=== PATIENT | male | born 1955 | race Caucasian/White ===

== ENCOUNTER 2019-07-08 08:53 | Inpatient (IN) | payer BC, OTHER ==
[2019-07-08] VITALS (19 sets, daily range): BP systolic 102–196; BP diastolic 54–117
[~2019-07-08] VITALS: Ht 182.9 cm; Wt 125.2 kg
[2019-07-08 09:24] LABS: ABG BASE EXCESS 0.6 MMOL/L (-2.5-2.5); ABG OXYGEN SATURATION 98 % (94-100); ABG PCO2 44 MMHG (35-45); ABG PH 7.38 (7.37-7.43); ABG PO2 110 MMHG (79-93); ABG TCO2 26.7 MMOL/L (21.0-31.0)
[2019-07-08 09:26] LABS: ALLENS TEST YES-POS; INSPIRED O2 60% BIPAP; PATIENT TEMP 36.6; VENTILATOR NO
[2019-07-08] MEDS ORDERED: CATHETER FLUSH 10 ML SYR IV PRN (09:30)
--- NOTE | 2019-07-08 10:01 | Diagnostic Imaging Report ---
INDICATION: Respiratory distress. COMPARISON: 06/28/2019. TECHNIQUE: Single radiograph of the chest dated 07/08/2019. FINDINGS: Previously noted endotracheal tube has been removed. Previously noted right-sided PICC line has been removed. Enteric catheter has been removed. The cardiac silhouette is enlarged, though similar to the prior exam. No significant pulmonary vascular congestion. Persistent elevation of the right hemidiaphragm. Significantly low lung volumes with increasing bibasilar opacities. Upper lungs appear clear. No pneumothorax. Osseous structures are stable. IMPRESSION: Low lung volumes with developing bibasilar atelectasis and/or pneumonitis. Interval removal of endotracheal tube, enteric catheter, and right-sided PICC line. Stable significant elevation of the right hemidiaphragm. Dictated by: Dictated on workstation # [id number]
[2019-07-08 10:04] LABS: ABG BASE EXCESS 1.8 MMOL/L (-2.5-2.5); ABG OXYGEN SATURATION 95 % (94-100); ABG PCO2 49 MMHG (35-45); ABG PH 7.36 (7.37-7.43); ABG PO2 83 MMHG (79-93); ABG TCO2 28.1 MMOL/L (21.0-31.0)
[2019-07-08 10:05] LABS: ALLENS TEST YES-POS; INSPIRED O2 35% BIPAP; PATIENT TEMP 99; VENTILATOR NO
[2019-07-08 10:07] LABS: BASOPHILS % (AUTO) 0 % (0-10); EOSINOPHILS % (AUTO) 0 % (0-10); HEMATOCRIT 43 % (40-54); HEMOGLOBIN 13.4 G/DL (13.3-17.7); LYMPHOCYTES # (AUTO) 0.7 X 10^3 (1.0-4.0); LYMPHOCYTES % (AUTO) 12 % (12-44); MEAN CORPUSCULAR HEMOGLOBIN 30 PG (25-34); MEAN CORPUSCULAR HGB CONC 31 G/DL (32-36); MEAN CORPUSCULAR VOLUME 97 FL (80-99); MEAN PLATELET VOLUME 10.7 FL (7.4-10.4); MONOCYTES # (AUTO) 0.3 X 10^3 (0.0-1.0); MONOCYTES % (AUTO) 6 % (0-12); NEUTROPHILS % (AUTO) 82 % (42-75); PLATELET COUNT 267 10^3/uL (130-400); RED CELL DISTRIBUTION WIDTH 14.1 % (10.0-14.5); WHITE BLOOD COUNT 6.1 10^3/uL (4.3-11.0)
[2019-07-08 10:09] LABS: ALANINE AMINOTRANSFERASE 34 U/L (0-55); ALBUMIN 4.1 GM/DL (3.2-4.5); ALKALINE PHOSPHATASE 72 U/L (40-136); BILIRUBIN,TOTAL 0.3 MG/DL (0.1-1.0); BUN/CREATININE RATIO 25; CALCIUM 9.7 MG/DL (8.5-10.1); CARBON DIOXIDE 23 MMOL/L (21-32); CHLORIDE 108 MMOL/L (98-107); CREATININE SERUM 0.95 MG/DL (0.60-1.30); GFR ESTIMATED > 60; GLUCOSE 111 MG/DL (70-105); MAGNESIUM 2.2 MG/DL (1.6-2.4); PHOSPHORUS 4.8 MG/DL (2.3-4.7); SODIUM 142 MMOL/L (135-145); TOTAL PROTEIN 8.1 GM/DL (6.4-8.2)
[2019-07-08] MEDS ORDERED: TRIA1TAB3 PO (10:21)
[2019-07-08] MEDS ORDERED: AMLO10TA7 PO (10:21)
[2019-07-08] MEDS ORDERED: DOXY100C42 PO (10:21)
[2019-07-08] MEDS ORDERED: LOVA40TA2 PO (10:21)
[2019-07-08] MEDS ORDERED: LISI40TA PO (10:21)
[2019-07-08] MEDS ORDERED: METO-333 PO (10:21)
[2019-07-08] MEDS ORDERED: POTA20TA15 PO (10:21)
[2019-07-08] MEDS: NS IV 1000 ML 1,000 ML IV SCH ×2 (10:29→18:12)
[2019-07-08 11:19] LABS: ABG OXYGEN SATURATION 97 % (94-100); ABG PCO2 35 MMHG (35-45); ABG PH 7.54 (7.37-7.43); ABG PO2 148 MMHG (79-93); ABG TCO2 31.2 MMOL/L (21.0-31.0)
[2019-07-08 11:22] LABS: ALLENS TEST YES-POS
[2019-07-08 11:23] LABS: INSPIRED O2 35%; PATIENT TEMP 37; VENTILATOR NO
[2019-07-08] MEDS: LEVETIRACETAM INJECTION 500 MG in NS (IVPB) 100 ML IV SCH ×2 (11:25→20:08)
--- NOTE | 2019-07-08 11:57 | History & Physical-Hospitalist ---
FIDEL GONZALEZ [facility] 07/08/19 1157: History of Present Illness HPI/Chief Complaint 64 y.o Obese, WM w/ hx of severe sleep apnea non-compliance w tx, HTN, chronic edema who was admitted to [facility] on 06/25 for AMS, noncommunicative and behavioral changes. His GCS was 13 while he was at the ED. Per reports from [place], pt was neurologically intact at the time but was uncooperative, confused and aphasic. CTH on 06/26/19 was negative. MRI on 06/26/19 of head was negative for acute ischemia, mass, or hemorrhage. Had LP done on 06/26 as well but results were not definitive @ discharge; was given Rocephin. A tick was found on the pt at the time and a Tick panel was sent which came back negative, but pending Lyme dz; pt was started on doxy. UA showed evidence of cystitis (positive for 10-20 WBC). Also had BUN & cr of 33 & 2.54 respectively; kidney function earlier this year had been normal. Pt was admitted for JANES, AMS, and possible Cystitis. Pt was then transferred to The senior behavioral unit in [facility] and admitted to Dr. Bradley Sweet. While in [facility], it was noted that pt snored alot and had pH of 7.27, CO2 57 and O2 stat of 46%; given the abnormal ABGs and pt's hx of severe sleep apnea w non- compliance to tx, Dr. Sweet suspected acute on chronic CO2 necrosis to be the cause of pt's presentation. Dr. Sweet consulted Dr. Briscoe @ [facility] and pt was transferrred to ICU @ via [facility] and admitted to Dr. Cifuentes. Further hx is limited pt's clinical condition. POA: Antonella Cha. ([phone]) Source: RN/MD, RN notes reviewed, EMS notes reviewed, old records Exam Limitations: clinical condition Date Seen 07/08/19 Time Seen by a Provider: 10:00 Attending Physician Leesa Cifuentes DO PCP Dali Aguirre (last seen pt on 03/02/19, pt was doing well at the time) Referring Physician Date of Admission Jul 08, 2019 at 08:53 Home Medications & Allergies Home Medications Reviewed patient Home Medication Reconciliation performed by pharmacy medication reconciliations cadd technician and/or nursing. Patients Allergies have been reviewed Acetaminophen 500 Mg Tablet, 1,000 MG PO Q4H PRN for PAIN-MILD, (Reported) Amlodipine Besylate 10 Mg Tablet, 10 MG PO DAILY, (Reported) Ascorbate Calcium 500 Mg Tablet, 500 MG PO DAILY, (Reported) Aspirin 325 Mg Tablet, 162.5 MG PO DAILY, (Reported) TAKES 1/2 (325MG) TABLET Cyanocobalamin (Vitamin B-12) 500 Mcg Tablet, 500 MCG PO DAILY, (Reported) Doxycycline Monohydrate 100 Mg Capsule, 100 MG PO BID, (Reported) 7 DAY SUPPLY FILLED 07-03-19 Lisinopril 40 Mg Tablet, 80 MG PO DAILY, (Reported) TAKES 2 (40MG) TABLETS Lovastatin 40 Mg Tablet, 80 MG PO HS, (Reported) TAKES 2 (40MG) TABLETS Magnesium Oxide 400 Mg Tablet, 400 MG PO DAILY, (Reported) Metoprolol Tartrate 25 Mg Tablet, 25 MG PO BID, (Reported) Multivit-Min/FA/Lycopen/Lutein 1 Each Tablet, 1 TAB PO DAILY, (Reported) Niacin (Inositol Niacinate) 500 Mg Capsule, 1,000 MG PO HS, (Reported) TAKES 2 (500MG) CAPSULES Nitroglycerin 0.4 Mg Tab.subl, 0.4 MG SL UD PRN for CHEST PAIN, (Reported) Potassium Chloride 20 Meq Tab.er.prt, 20 MEQ PO DAILY, (Reported) Triamterene/Hydrochlorothiazid 1 Each Tablet, 1 TAB PO DAILY, (Reported) Zinc Amino Acid Chelate 50 Mg Tablet, 50 MG PO DAILY, (Reported) . Allergies Allergies Coded Allergies azithromycin (Verified Allergy, Unknown, 07/08/19) Past Ggzoonv-Mevgld-Eagkwr Hx Past Med/Social Hx: Reviewed and Corrections made Patient Social History Marrital Status: Employed/Student: employed (works for [employer] ) Alcohol Use: Occasionally Uses (per medical records, unable to confirm with pt at this time) Smoking Status: Never a Smoker (per medical records, unable to confirm with pt at this time) Immunizations Up To Date Tetanus Booster (TDap): Unknown Past Medical History Surgeries: Bowel Surgery (colonoscopy ), Cardiac (Cardiac cath in 1999: normal), Orthopedic (Right knee arthroscopic procedure; R knee repair) Left temporal basal cell carcinoma excision Respiratory: Sleep Apnea (severe, non-compliant with Tx) Currently Using BIPAP: Yes Cardiac: Chronic Edema/Swelling, Hypertension Hyperlipidemia, WPW Gastrointestinal: Diverticulosis (sigmoid) Osteoarthritis prediabetes Cancer: Skin Psychosocial: Anxiety Family History Reviewed Nursing Family Hx Review of Systems ROS-Unable to Obtain: 2/2 clinical condition at this time Physical Exam Physical Exam Vital Signs Vital Signs - First Documented 07/08/19 07/08/19 09:15 09:27 Pulse 76 Resp 16 Pulse Ox 96 O2 Flow Rate 35.00 Capillary Refill : Height, Weight, BMI Height: '" Weight: lbs. oz. kg; BMI Method: General Appearance: No Apparent Distress, Obese, Other (responsive to touch, somnolent at this time) Neck: Other (increased neck circumference) Respiratory: Chest Non Tender, Lungs Clear, No Accessory Muscle Use, No Respiratory Distress Cardiovascular: Regular Rate, Rhythm, No Gallop, No JVD, No Murmur, Normal Peripheral Pulses Gastrointestinal: No Organomegaly, No Pulsatile Mass, Non Tender, Other (abd obesity ) Back: Normal Inspection Extremity: Normal Capillary Refill, Normal Inspection, Pedal Edema (trace) Neurologic/Psychiatric: No Alert, No Oriented x3; Other (incomplete exam 2/2 clinical condition at this time) Skin: Normal Color, Warm/Dry Results Results/Procedures Labs Laboratory Tests 07/08/19 09:31 Patient resulted labs reviewed. 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 Briscoe will follow 3 Continue BIPAP 4 Initiate MAT protocol 5 Duoneb tx 6 DVT prophylaxis: sequential compressions 7 Monitor ABGs 8 Monitor Lactic Acid LEESA CIFUENTES DO 07/08/192128: History of Present Illness HPI/Chief Complaint CC: Respiratory insufficiency HPI: This is a 64yoWM pt of Gabby Henning who presented to [facility] after I transferred him from senior behavioral unit at [facility] after admitted late last night from [place] ER due to altered mental status. He has a long standing history of untreated DAYANA refusing CPAP in the past who had hip replacement surgery in [place] 6 weeks ago, discharged and just two weeks ago had significant altered mental status, sent to [place] after observation at [place] and thre he had an MRI and spinal tap and neurology consult looking for tickborne illness as the source so he was placed on Doxycyline but had been intubed and extubated and discharged home who continued to have issue when he got home so he was sent to the senior unit and this morning I noted apnea episodes before he was awake so I obtained and ABG showing significant respiratory insufficiency, pH of 7.27/58/46 requiring transfer to higher level of care for pulmonology. My theory is untreated DAYANA for many years, worsened with gradual CO2 Narcosis since anesthesia with surgery and pain medication, off work and sleeping more caused all of the altered mental status. At this current time pt is tolerating biPAP, ABG shows much improved numbers and pt remains stable. Past Bhwotmx-Fjmzkq-Nyjdfg Hx Past Medical History Respiratory: Sleep Apnea (severe, non-compliant with Tx) Review of Systems Constitutional: see HPI Physical Exam Physical Exam General Appearance: No Apparent Distress, Obese, Other (responsive to touch, somnolent at this time) Assessment/Plan Admission Diagnosis Assessment: Acute on chronic respiratory failure Acute on chronic CO2 narcosis Obesity DM HTN CRI OA Plan: Monitor CO2 BiPAP Appreciate Dr Briscoe Admission Status: Inpatient Order (span 2 midnights) Reason for Inpatient Admission: Resp failure Diagnosis/Problems Diagnosis/Problems (1) CO2 narcosis Status: Acute Supervisory-Addendum Brief Verification & Attestation Participated in pt care: history, MDM, physical Personally performed: exam, history, MDM, supervision of care Care discussed with: Medical Student Procedures: n/a Results interpretation: Verified all documentation Verification and Attestation of Medical Student E/M Service A medical student performed and documented this service in my presence. I reviewed and verified all information documented by the medical student and made modifications to such information, when appropriate. I personally performed the physical exam and medical decision making. Leesa Cifuentes, Jul 08, 2019,21:[address] [facility] Jul 08, 2019 11:57 LEESA CIFUENTES DO Jul 08, 2019 21:29
[2019-07-08 13:09] LABS: BILIRUBIN,URINE NEGATIVE (NEGATIVE); CLARITY,URINE VERY CLOUDY; COLOR,URINE YELLOW; GLUCOSE, URINE (UA) NEGATIVE (NEGATIVE); KETONES,URINE 3+ (NEGATIVE); LEUKOCYTE ESTERASE ,URINE NEGATIVE (NEGATIVE); NITRITE,URINE NEGATIVE (NEGATIVE); PH,URINE 6 (5-9); PROTEIN,URINE 2+ (NEGATIVE); UROBILINOGEN,URINE NORMAL (NORMAL)
[2019-07-08 13:20] LABS: RBC,URINE 0-2 /HPF
[2019-07-08 13:21] LABS: AMORPHOUS SEDIMENT,UR LARGE AMOR URATES /LPF; BACTERIA,URINE FEW /HPF
[2019-07-08] MEDS ORDERED: ASCO-262 PO (13:23)
[2019-07-08] MEDS ORDERED: MULT-1061 PO (13:23)
[2019-07-08] MEDS ORDERED: ACET-2267 PO (13:23)
[2019-07-08] MEDS ORDERED: NIAC1CAP PO (13:23)
[2019-07-08] MEDS ORDERED: ASPI-808 PO (13:23)
[2019-07-08] MEDS ORDERED: MAGN400T39 PO (13:23)
[2019-07-08] MEDS ORDERED: CYAN500T62 PO (13:23)
[2019-07-08] MEDS ORDERED: NITR0.4T39 SL (13:23)
[2019-07-08] MEDS ORDERED: ZINC50TA51 PO (13:23)
--- NOTE | 2019-07-08 13:26 | NUR ---
FAMILY BROUGHT IN MEDICATION BOTTLES, I COMPARED THEM WITH THE EXT MED HX. IN ADDITION TO THE EXT MED HX HE HAS A PRESCRIPTION BOTTLE FOR NIACIN 500MG 2 HS #60 FILLED 06-19-19. OTC MEDS INCLUDE: MTV ZINC 50MG VITAMIN C 500MG MAGNESIUM 400MG VITAMIN B12 500MCG TYLENOL 500MG ASPIRIN 325MG (FAMILY STATES HE TAKES 1/2 TAB DAILY) HE ALSO HAS A BOTTLE OF NITROGLYCERIN NEEDED.
[2019-07-08] MEDS ORDERED: RT-ALBUTEROL/IPRATROPIUM 3 ML (DUONEB) VIAL INH PRN (13:30)
--- NOTE | 2019-07-08 13:48 | Pulmonary Consultation ---
History of Present Illness History of Present Illness Date of Consultation 07/08/19 13:48 Time Seen by Provider: 13:48 Date of Admission History of Present Illness 64yo with hx of severe DAYANA- noncompliance to home CPAP, morbid obesity, recent confusion presented from [facility] behavioral unit secondary to worsening respiratory distress and C02 narcosis. ABG was done and showed C02 of 57. Pt was placed on CPAP by EMS during transport secondary to worsening respiratory distress. Pt directly admitted to ICU 11 and placed on BiPAP. Pt was also recently admitted to [facility] in [place] and MS work up has been negative. Unable to obtain ROS. I am consulted for ICU/pulmonary management. Allergies and Home Medications Allergies Coded Allergies: azithromycin (Verified Allergy, Unknown, 07/08/19) Home Medications Acetaminophen 500 Mg Tablet, 1,000 MG PO Q4H PRN for PAIN-MILD, (Reported) Amlodipine Besylate 10 Mg Tablet, 10 MG PO DAILY, (Reported) Ascorbate Calcium 500 Mg Tablet, 500 MG PO DAILY, (Reported) Aspirin 325 Mg Tablet, 162.5 MG PO DAILY, (Reported) TAKES 1/2 (325MG) TABLET Cyanocobalamin (Vitamin B-12) 500 Mcg Tablet, 500 MCG PO DAILY, (Reported) Doxycycline Monohydrate 100 Mg Capsule, 100 MG PO BID, (Reported) 7 DAY SUPPLY FILLED 07-03-19 Ipratropium/Albuterol Sulfate 3 Ml Ampul.neb, 3 ML INH RTQ4HR Prescribed by: RAMOS CIFUENTES on 07/10/19 1151 Lisinopril 40 Mg Tablet, 80 MG PO DAILY, (Reported) TAKES 2 (40MG) TABLETS Lovastatin 40 Mg Tablet, 80 MG PO HS, (Reported) TAKES 2 (40MG) TABLETS Magnesium Oxide 400 Mg Tablet, 400 MG PO DAILY, (Reported) Metoprolol Tartrate 25 Mg Tablet, 25 MG PO BID, (Reported) Multivit-Min/FA/Lycopen/Lutein 1 Each Tablet, 1 TAB PO DAILY, (Reported) Niacin (Inositol Niacinate) 500 Mg Capsule, 1,000 MG PO HS, (Reported) TAKES 2 (500MG) CAPSULES Nitroglycerin 0.4 Mg Tab.subl, 0.4 MG SL UD PRN for CHEST PAIN, (Reported) Potassium Chloride 20 Meq Tab.er.prt, 20 MEQ PO DAILY, (Reported) Triamterene/Hydrochlorothiazid 1 Each Tablet, 1 TAB PO DAILY, (Reported) Zinc Amino Acid Chelate 50 Mg Tablet, 50 MG PO DAILY, (Reported) Past Ihimsno-Czcctr-Qlzgyh Hx Patient Social History Alcohol Use: Denies Use Recreational Drug Use: No Recent Foreign Travel: No Recent Hopitalizations: Yes Seasonal Allergies Seasonal Allergies: Yes Past Medical History Currently Using CPAP: No (ORDERED BUT DOES NOT USE) Review of Systems Time Seen by Provider: 13:58 Sepsis Event Evaluation Height, Weight, BMI Height: '" Weight: lbs. oz. kg; 37.96 BMI Method: Exam Exam Vital Signs Date Time Temp Pulse Resp B/P (MAP) Pulse Ox O2 Delivery O2 Flow Rate FiO2 07/08/19 13:00 36.6 86 96 60 07/08/19 12:00 96 NIV Bilevel 35 07/08/19 11:14 80 16 97 35.00 07/08/19 09:27 86 16 96 35.00 07/08/19 09:15 76 07/08/19 09:00 96 NIV Bilevel 60 Height & Weight Height: '" Weight: lbs. oz. kg; 37.96 BMI Method: General Appearance: Anxious, Moderate Distress HEENT: PERRL/EOMI, Normal ENT Inspection, Pharynx Normal Neck: Full Range of Motion, Non Tender, Supple Respiratory: Chest Non Tender, No Accessory Muscle Use, No Respiratory Distress, Decreased Breath Sounds Cardiovascular: Regular Rate, Rhythm, No Edema, No Gallop, No JVD Capillary Refill: Less Than 3 Seconds Gastrointestinal: normal bowel sounds, non tender, soft, no organomegaly, no pulsatile mass Extremity: Normal Capillary Refill, Normal Inspection, Pedal Edema Neurologic/Psychiatric: Depressed Affect, Disoriented Skin: Normal Color, Warm/Dry Lymphatic: No Adenopathy Results Lab Laboratory Tests 07/08/19 09:31 Assessment/Plan Assessment/Plan Acute respiratory failure probably secondary to OHS -Continue noninvasive ventilation -Monitor ABG Morbid obesity with OHS - Pt would benefit from home vent to mask -C02 at [facility] was 57 KIM EATON DO Jul 08, 2019 13:48
--- NOTE | 2019-07-08 14:07 | Occ Therapy Progress Note ---
Therapy Progress Note OT order received, chart reviewed. Pt. currently having PICC line placed. Dr. Briscoe lets this therapist know that pt. would benefit from attempting therapy tomorrow instead of today, due to pt's cognitive status. Will attempt back tomorrow. [id number] GAIL VELA OT Jul 08, 2019 14:07
--- NOTE | 2019-07-08 14:57 | Consultation-Cardiology ---
HPI-Cardiology Cardiology Consultation Date of Consultation 07/08/19 Date of Admission Time Seen by Provider: 13:58 Indication: Respiratory failure HPI Patient is a 64 y/o male with hx of WPW, HTN, severe DAYANA. Was transfered from [facility] for Acute Respiratory failure. Patient is unarousable at this time and HPI is obtained through medical records. Patient underwent hip surgery in [place] approx 6 weeks ago, which fam reports was uneventful surgery and recovery. Was brought to [facility] on 06/25/19 for AMS. reported patient with erratic behavior, i.e. writing in notebook, repetitively touching his face. Underwent extensive w/u. Was transferred to [facility] for further neurology review. There was question of possible infarct on MRI of brain, however, repeat MRI brain done in [place] on 06/29/19 was negative. Underwent EEG after having witnessed seizure like activity which was negative. LP and tick panel negative. Currently on doxycycline. [facility] [place], lethargic, on C Pap. Unable to provide any history. Opening his eyes occasionally to verbal stimuli. Does not respond to any questions. Does not respond to touch. Home Medications & Allergies Allergies: Coded Allergies: azithromycin (Verified Allergy, Unknown, 07/08/19) Home Medication List Reviewed: Yes UQI-Xuzsrb-Uteecq Hx Patient Social History Marital Status: Employed/Student: employed (works for [employer] ) Alcohol Use: Occasionally Uses (per medical records, unable to confirm with pt at this time) Recreational Drug Use: No Smoking Status: Never a Smoker (per medical records, unable to confirm with pt at this time) Recent Foreign Travel: No Recent Hopitalizations: Yes Physical Abuse Screen: No Sexual Abuse: No Immunizations Up To Date Tetanus Booster (TDap): Unknown Past Medical History DAYANA, HTN Family Medical History Family Medical Hx Unable to provide family history Review of Systems-General Review of Systems ROS-Unable to Obtain: Unable to obtain Constitutional: other (unable to provide review of system, opening his eyes. In respiratory failure at this point) Reviewed Test Results Reviewed Test Results Lab Laboratory Tests 07/08/19 09:10: Urine Color YELLOW, Urine Clarity VERY CLOUDYH, Urine pH 6, Urine Specific [place] 1.025H, Urine Protein 2+H, Urine Glucose (UA) NEGATIVE, Urine Ketones 3+H, Urine Nitrite NEGATIVE, Urine Bilirubin NEGATIVE, Urine Urobilinogen NORMAL, Urine Leukocyte Esterase NEGATIVE, Urine RBC (Auto) NEGATIVE, Urine RBC 0-2, Urine WBC 2-5, Urine Crystals PRESENTH, Urine Amorphous Sediment LARGE KIRSTIN URATESH, Urine Bacteria FEWH, Urine Casts PRESENT, Urine Coarse Granular Casts 0-2H, Urine Mucus NEGATIVE, Urine Culture Indicated NO 07/08/19 09:17: Blood Gas Puncture Site LT RAD, Blood Gas Patient Temperature 36.6, Arterial Blood pH 7.38, Arterial Blood Partial Pressure CO2 44, Arterial Blood Partial Pressure O2 110H, Arterial Blood HCO3 25, Arterial Blood Total CO2 26.7, Arterial Blood Oxygen Saturation 98, Arterial Blood Base Excess 0.6, Martin Test YES-POS, Blood Gas Ventilator Setting NO, Blood Gas Inspired Oxygen 60% BIPAP 07/08/19 09:31: White Blood Count 6.1, Red Blood Count 4.45, Hemoglobin 13.4, Hematocrit 43, Mean Corpuscular Volume 97, Mean Corpuscular Hemoglobin 30, Mean Corpuscular Hemoglobin Concent 31L, Red Cell Distribution Width 14.1, Platelet Count 267, Mean Platelet Volume 10.7H, Neutrophils (%) (Auto) 82H, Lymphocytes (%) (Auto) 12, Monocytes (%) (Auto) 6, Eosinophils (%) (Auto) 0, Basophils (%) (Auto) 0, Neutrophils # (Auto) 5.0, Lymphocytes # (Auto) 0.7L, Monocytes # (Auto) 0.3, Eosinophils # (Auto) 0.0, Basophils # (Auto) 0.0, Sodium Level 142, Potassium Level 4.0, Chloride Level 108H, Carbon Dioxide Level 23, Anion Gap 11, Blood Urea Nitrogen 24H, Creatinine 0.95, Estimat Glomerular Filtration Rate > 60, BUN /Creatinine Ratio 25, Glucose Level 111H, Calcium Level 9.7, Corrected Calcium 9.6, Phosphorus Level 4.8H, Magnesium Level 2.2, Total Bilirubin 0.3, Aspartate Amino Transf (AST/SGOT) 40H, Alanine Aminotransferase (ALT/SGPT) 34, Alkaline Phosphatase 72, B-Type Natriuretic Peptide 58.0, Total Protein 8.1, Albumin 4.1 07/08/19 09:35: 07/08/19 09:58: Blood Gas Puncture Site LT RAD, Blood Gas Patient Temperature 99, Arterial Blood pH 7.36L, Arterial Blood Partial Pressure CO2 49H, Arterial Blood Partial Pressure O2 83, Arterial Blood HCO3 27, Arterial Blood Total CO2 28.1, Arterial Blood Oxygen Saturation 95, Arterial Blood Base Excess 1.8, Martin Test YES-POS, Blood Gas Ventilator Setting NO, Blood Gas Inspired Oxygen 35% BIPAP 07/08/19 11:13: Blood Gas Puncture Site LT RAD, Blood Gas Patient Temperature 37, Arterial Blood pH 7.54H, Arterial Blood Partial Pressure CO2 35, Arterial Blood Partial Pressure O2 148H, Arterial Blood HCO3 30H, Arterial Blood Total CO2 31.2H, Arterial Blood Oxygen Saturation 97, Arterial Blood Base Excess 7.0H, Martin Test YES-POS, Blood Gas Ventilator Setting NO, Blood Gas Inspired Oxygen 35% Physical Exam Physical Exam Vital Signs Vital Signs - First Documented 07/08/19 07/08/19 07/08/19 09:00 09:27 13:00 Temp 36.6 Pulse 116 Resp 16 B/P (MAP) 115/85 (95) Pulse Ox 96 O2 Delivery NIV Bilevel O2 Flow Rate 35.00 FiO2 60 Capillary Refill : Height, Weight, BMI Height: '" Weight: lbs. oz. kg; 37.96 BMI Method: General Appearance: Mild Distress, Obese, Other (responsive to touch, somnolent at this time) Neck: Supple, Other (increased neck circumference) Respiratory: Chest Non Tender, Lungs Clear, No Accessory Muscle Use, No Respiratory Distress Cardiovascular: Regular Rate, Rhythm, No Gallop, No JVD, No Murmur, Normal Peripheral Pulses Gastrointestinal: No Organomegaly, No Pulsatile Mass, Non Tender, Other (abd obesity ) Back: Normal Inspection Extremity: Normal Capillary Refill, Normal Inspection, Pedal Edema (trace) Neurologic/Psychiatric: No Alert, No Oriented x3; Other (incomplete exam 2/2 clinical condition at this time) Skin: Normal Color, Warm/Dry A/P-Cardiology Admission Diagnosis AMS Suspected CO2 narcosis DAYANA HTN HLP Assessment/Plan AMS, suspected CO2 narcosis. 2D Echo revealed EF 60%, PA 20mmHg. electrolytes were normal. Continue to monitor, managed by Dr. Briscoe Severe DAYANA, noncompliant with treatment in the past, currently on C Pap Morbid obesity Questionable encephalopathy- w/u negative so far. Consider neurology eval HTN- continue to monitor Hx of WPW Chronic edema Prediabetes Thank you for allowing us to participate in the management of Mr. Cha. This is Erika Gonzalez PA-C Patient was seen and evaluated with. That, I interviewed the patient, was unable to provide any history, perform physical examination discussed the management plan, agree with the scribed note, as mentioned above patient is currently on Cipro. Respiratory failure. Echocardiogram showed normal left ventricular function. Difficult study, there is questionable CO2 narcosis, continue to monitor closely, monitor blood pressure and electrolytes. Clinical Quality Measures DVT/VTE Risk/Contraindication: Risk Factor Score Per Nursin RFS Level Per Nursing on Admit: 4+=Very High ERIKA RUIZ Jul 08, 2019 14:57 MELANY SEAMAN MD Jul 08, 2019 17:48
--- NOTE | 2019-07-08 14:59 | Speech Therapy Progress Note ---
Therapy Progress Note ST attempted to complete a Bedside Dysphagia Evaluation, however patient was unable to be awakened by touch or name. Family in the room stated they had been unable to wake patient as well. ST to follow up in the am on 07/09/19. REHAN CONROY Jul 08, 2019 14:59
--- NOTE | 2019-07-08 15:22 | Diagnostic Imaging Report ---
INDICATION: PICC line placement. TIME OF EXAM: 3:06 p.m. COMPARISON: Correlation is made with prior chest from earlier the same day. FINDINGS: Left upper extremity PICC line has been placed and has the tip in good position overlying the SVC. There is no pneumothorax. Lungs are clear. Chronic elevation of the right hemidiaphragm is noted. There is no effusion. IMPRESSION: Satisfactory PICC line placement. Dictated by: Dictated on workstation # [id number]
[2019-07-08] MEDS: RT-ALBUTEROL/IPRATROPIUM 3 ML (DUONEB) VIAL INH SCH ×2 (20:20→23:15)
--- NOTE | 2019-07-08 21:57 | NUR ---
THIS NURSE NOTIFIED E-ICU THAT PT WAS HAVING LESS THAN 30 CC/HR URINE OUTPUT. URINE IS DARK BERNADETTE. BLADDER SCAN WAS 0ML. ORDERS GIVEN.
[2019-07-08] MEDS ORDERED: D5 NS 1000 ML IV SOLUTION 1,000 ML IV ONE (22:33)
[2019-07-08] MEDS ORDERED: NS IV 500 ML 500 ML ONE (22:33)
[2019-07-08] MEDS: D5 NS 1000 ML IV SOLUTION 1,000 ML IV SCH (22:57)
[2019-07-08] MEDS ORDERED: NS IV 500 ML 500 ML IV ONE (23:00)
[2019-07-09] VITALS (21 sets, daily range): BP systolic 111–160; BP diastolic 66–100
[2019-07-09] MEDS: inSUlin ASPART (NovoLOG) 1 UNIT/0.01 ML (CHARGE PER UNIT) SC SCH ×4 (00:23→18:50)
[2019-07-09 02:59] LABS: ABG BASE EXCESS -0.1 MMOL/L (-2.5-2.5); ABG OXYGEN SATURATION 98 % (94-100); ABG PCO2 26 MMHG (35-45); ABG PH 7.54 (7.37-7.43); ABG PO2 76 MMHG (79-93)
[2019-07-09 03:00] LABS: ALLENS TEST YES-POS; INSPIRED O2 21; PATIENT TEMP 37; VENTILATOR NO
[2019-07-09 03:11] LABS: BASOPHILS % (AUTO) 1 % (0-10); EOSINOPHILS # (AUTO) 0.1 10^3/uL (0.0-0.3); EOSINOPHILS % (AUTO) 1 % (0-10); HEMATOCRIT 36 % (40-54); HEMOGLOBIN 11.6 G/DL (13.3-17.7); LYMPHOCYTES # (AUTO) 1.1 X 10^3 (1.0-4.0); LYMPHOCYTES % (AUTO) 16 % (12-44); MEAN CORPUSCULAR HEMOGLOBIN 31 PG (25-34); MEAN CORPUSCULAR HGB CONC 32 G/DL (32-36); MEAN CORPUSCULAR VOLUME 95 FL (80-99); MEAN PLATELET VOLUME 10.7 FL (7.4-10.4); MONOCYTES # (AUTO) 0.7 X 10^3 (0.0-1.0); MONOCYTES % (AUTO) 10 % (0-12); NEUTROPHILS # (AUTO) 4.7 X 10^3 (1.8-7.8); NEUTROPHILS % (AUTO) 73 % (42-75); PLATELET COUNT 240 10^3/uL (130-400); RED CELL DISTRIBUTION WIDTH 13.6 % (10.0-14.5); WHITE BLOOD COUNT 6.5 10^3/uL (4.3-11.0)
[2019-07-09 03:35] LABS: ALANINE AMINOTRANSFERASE 27 U/L (0-55); ALBUMIN 3.5 GM/DL (3.2-4.5); ALKALINE PHOSPHATASE 53 U/L (40-136); BILIRUBIN,TOTAL 0.4 MG/DL (0.1-1.0); BUN/CREATININE RATIO 24; CARBON DIOXIDE 23 MMOL/L (21-32); CHLORIDE 111 MMOL/L (98-107); CREATININE SERUM 0.86 MG/DL (0.60-1.30); GFR ESTIMATED > 60; GLUCOSE 112 MG/DL (70-105); MAGNESIUM 1.9 MG/DL (1.6-2.4); PHOSPHORUS 1.2 MG/DL (2.3-4.7); SODIUM 145 MMOL/L (135-145); TOTAL PROTEIN 6.6 GM/DL (6.4-8.2)
--- NOTE | 2019-07-09 03:46 | NUR ---
EICU NOTIFIED NURSE TO HOLD OF ELECTROLYTE PROTOCOL. DR ZHONG WILL PUT IN REPLACEMENT ORDERS.
[2019-07-09] MEDS: RT-ALBUTEROL/IPRATROPIUM 3 ML (DUONEB) VIAL INH SCH ×6 (03:51→22:08)
[2019-07-09] MEDS ORDERED: POTASSIUM PHOSPHATE INJ 30 MM in NS (IVPB) 250 ML IV ONE (04:30)
[2019-07-09] MEDS: POTASSIUM CL 10MEQ/50ML IVPB 50 ML IV SCH ×4 (04:53→09:13)
[2019-07-09 05:39] LABS: BILIRUBIN,URINE NEGATIVE (NEGATIVE); CLARITY,URINE CLEAR; COLOR,URINE YELLOW; GLUCOSE, URINE (UA) NEGATIVE (NEGATIVE); KETONES,URINE 3+ (NEGATIVE); LEUKOCYTE ESTERASE ,URINE 2+ (NEGATIVE); NITRITE,URINE NEGATIVE (NEGATIVE); PH,URINE 7 (5-9); PROTEIN,URINE 1+ (NEGATIVE); UROBILINOGEN,URINE NORMAL (NORMAL)
[2019-07-09 05:49] LABS: AMORPHOUS SEDIMENT,UR FEW AMOR PHOSPHATE /LPF; BACTERIA,URINE FEW /HPF
[2019-07-09] MEDS ORDERED: POTASSIUM CL 10MEQ/50ML IVPB 50 ML IV SCH (06:00)
[2019-07-09] MEDS ORDERED: MAGNESIUM 1 GM/100 ML IVPB 100 ML IV SCH (06:00)
[2019-07-09] MEDS ORDERED: KCL 20 MEQ TAB (K-DUR) PO SCH (06:00)
[2019-07-09] MEDS: HALOPERIDOL 5 MG/ML (HALDOL) AMP IM PRN (06:08)
[2019-07-09] MEDS: D5 NS 1000 ML IV SOLUTION 1,000 ML IV SCH ×2 (06:09→16:32)
--- NOTE | 2019-07-09 06:11 | Pulmonary Progress Note ---
Subjective Time Seen by a Provider: 06:10 Subjective/Events-last exam Pt appears to be improving Sepsis Event Evaluation Height, Weight, BMI Height: '" Weight: 276lbs. 0.5oz. 125.170512re; 37.96 BMI Method: Focused Exam Lactate Level 07/08/19 17:25: Lactic Acid Level 0.69 Exam Exam Vital Signs Date Time Temp Pulse Resp B/P (MAP) Pulse Ox O2 Delivery O2 Flow Rate FiO2 07/09/19 05:00 84 8 111/94 (100) 96 NIV Bilevel 21.00 07/09/19 05:00 Nasal Cannula 2.00 07/09/19 04:00 37.0 07/09/19 04:00 98 NIV Bilevel 21 07/09/19 04:00 84 30 145/100 (115) 97 NIV Bilevel 21.00 07/09/19 03:51 84 26 97 21.00 07/09/19 03:00 80 16 139/84 (102) 97 NIV Bilevel 21.00 07/09/19 02:00 93 19 139/72 (94) 98 NIV Bilevel 21.00 07/09/19 01:00 88 26 136/88 (104) 99 NIV Bilevel 21.00 07/09/19 01:00 90 07/09/19 00:00 91 40 130/89 (103) 98 NIV Bilevel 21.00 07/09/19 00:00 100 NIV Bilevel 21 07/08/19 23:24 36.9 07/08/19 23:15 84 28 96 21.00 07/08/19 23:00 87 22 133/100 (111) 95 NIV Bilevel 21.00 07/08/19 22:00 80 15 123/81 (95) 93 NIV Bilevel 21.00 07/08/19 21:00 96 20 169/112 (131) 97 NIV Bilevel 21.00 07/08/19 20:31 NIV Bilevel 21.00 07/08/19 20:21 93 26 100 35.00 07/08/19 20:00 99 12 143/88 (106) 99 NIV Bilevel 35.00 07/08/19 20:00 37.0 07/08/19 20:00 100 NIV Bilevel 36 07/08/19 19:00 75 07/08/19 19:00 73 18 107/54 (71) 99 NIV Bilevel 35.00 07/08/19 18:00 81 25 102/59 (73) 97 NIV Bilevel 35.00 07/08/19 17:00 99 20 125/68 (87) 97 NIV Bilevel 35.00 07/08/19 16:00 98 NIV Bilevel 35 07/08/19 16:00 104 15 114/71 (85) 95 NIV Bilevel 35.00 07/08/19 15:00 98 7 196/117 (143) 99 NIV Bilevel 35.00 07/08/19 14:00 102 12 156/93 (114) 98 NIV Bilevel 35.00 07/08/19 13:00 82 07/08/19 13:00 36.6 86 96 60 07/08/19 13:00 82 26 103/69 (80) 94 NIV Bilevel 35.00 07/08/19 12:00 96 NIV Bilevel 35 07/08/19 12:00 81 21 112/77 (89) 95 NIV Bilevel 35.00 07/08/19 11:14 80 16 97 35.00 07/08/19 11:00 82 16 132/93 (106) 97 NIV Bilevel 35.00 07/08/19 10:00 87 11 127/94 (105) 94 NIV Bilevel 35.00 07/08/19 09:27 86 16 96 35.00 07/08/19 09:15 76 07/08/19 09:00 96 NIV Bilevel 60 07/08/19 09:00 116 115/85 (95) NIV Bilevel 35.00 I & O 07/09/19 07:00 Intake Total 910 ml Output Total 1275 ml Balance -365 ml Height & Weight Height: '" Weight: 276lbs. 0.5oz. 125.030822ud; 37.96 BMI Method: General Appearance: No Apparent Distress, Obese, Other (responsive to touch, somnolent at this time) Neck: Supple, Other (increased neck circumference) Respiratory: Chest Non Tender, Lungs Clear, No Accessory Muscle Use, No Respiratory Distress Cardiovascular: Regular Rate, Rhythm, No Gallop, No JVD, No Murmur, Normal Peripheral Pulses Extremity: Normal Capillary Refill, Normal Inspection, Pedal Edema (trace) Neurologic/Psychiatric: No Alert, No Oriented x3; Other (incomplete exam 2/2 clinical condition at this time) Skin: Normal Color, Warm/Dry Results Lab Laboratory Tests 07/08/19 09:31 07/09/19 03:02 Assessment/Plan Assessment/Plan Acute respiratory failure probably secondary to OHS -Continue noninvasive ventilation -Monitor ABG -Trial pt on NC Morbid obesity with OHS - Pt would benefit from home vent to mask -C02 at [facility] was 57 Abdominal distension -CHeck Ct of chest/abd/pelvis with IV/PO contrast Hypokalemia/hypophos -replace KIM EATON DO Jul 09, 2019 06:11
--- NOTE | 2019-07-09 08:26 | ST Dysphagia Evaluation ---
Speech Evaluation-General Medical Diagnosis Acute on chronic respiratory failure, AMS Onset Date: Jul 08, 2019 Therapy Diagnosis Therapy Diagnosis: Oropharyngeal Dysphagia Precautions Precautions: Aspiration Precautions/Isolations: Aspiration, Fall Prevention, Standard Precautions Referral Referring Physician: Dr. Mendez Reason for Referral: Evaluation/Treatment Medical History Pertinent Medical History: DM, HTN, OA DM, HTN, Anxiety, OA Current History Acute on chronic respiratory failure, AMS Reviewed History: Yes Social History Home: Single Level Current Living Status: Spouse Speech PLF/Current-Dysphagia Prior Level of Function Patient lived at home with his and was independent for most of his daily needs. Subjective The patient was cooperative with the Bedside Dysphagia Evaluation. Cognitive Status Patient Orientation: Person, Confused Patient continues to exhibit altered mental status. Patient talks to no one in particular, stating random thoughts. He was able to be redirected easily during the swallow evaluation. Oral Motor Skills Dentition: Natural Patient was NPO pending the BDE Voice Voice Phonatory-Based Quality: Breathy, Hoarse Voice Pitch: Mildly Low Voice Loudness: Mildly Soft/Quiet Face Facial Symmetry: Symmetrical Oral-Facial Assessment Oral-Facial Dentition: Normal Labial Seal Description: Normal Smile: Reduced ROM Puff Cheeks: Reduced Strength Lingual Protrusion: Normal Lingual ROM: Normal Lingual Strength: Normal Pharynx Velopharyngeal Move.: Normal Volitional Dry Swallow: Yes Voluntary Cough: Yes Can Clear Throat Volitionally: Yes Dysphagia Evaluation Consistencies Presented: Regular, Thin Liquid, Mechanical Soft, Pureed Oral phase is within normal range of function. Pharyngeal phase is within normal range of function. Dietary Recommendations: Regular Liquid Recommendations: Thin Swallowing Precautions: Alternate Liquids/Solids, Double Swallow, Decreased Bolus 1/2 Tsp, Liquids from Straw, Small Bites and Sips, Sitting Upright 90 Degrees, Sitting 90 Degrees 30 Post Intake Barriers to Learning Patient is a 64 year old male who was admitted to the hospital due to AMS. The patient had a hip replacement 6 weeks ago. Records indicate he has had some difficulty since that time. He also has noted acute on chronic respiratory failure due to long standing severe sleep apnea with non compliance of therapy. The patient completed the BDE with the following textures: Thin via 1/2 tsp x2 without difficulty, via straw small sips x2 without difficulty. The patient was also presented puree, mechanical soft and regular without difficulty. The patient diet level recommendations are for regular and thin liquids. The nurse was notified of these recommendations as well as placed on the white board. Speech Short Term Goals Short Term Goals Short Term Goals 1) The patient will tolerate least restrictive diet level without s/s of aspiration with 90% or greater. 2) The patient will utilize compensatory strategies as trained with 90% or greater with minimal cues. Speech Longterm Goals Fur Coat Sewer Goals The patient will maintain adequate nutrition/hydration via safe effective swallow function. Speech-Plan Patient/Family Goals Patient/Family Goals: The patient's plan is most likely to return home with his . Treatment Plan Speech Therapy Treatment Plan: Continue Plan of Care The patient will receive skilled dysphagia therapy. Treatment Duration: Jul 15, 2019 Frequency: 3 times per week Estimated Hrs Per Day: .25 hour per day Rehab Potential: Fair Barriers to Learning: Patient has a complex medical status at this time. Pt/Family Agrees to Plan: Yes Safety Risks/Education Teaching Recipient: Patient Teaching Methods: Demonstration, Discussion Response to Teaching: Verbalize Understanding, Return Demonstration Education Topics Provided: Safety of oral intake and diet level Time Speech Therapy Time In: 08:00 Speech Therapy Time Out: 08:15 Total Billed Time: 15 Billed Treatment Time Ree REHAN Hopper Jul 09, 2019 08:26
[2019-07-09] MEDS ORDERED: CATHETER FLUSH 10 ML SYR IV PRN (08:30)
[2019-07-09] MEDS ORDERED: NS 100 ML (IVPB) BAG IV ONE (08:30)
[2019-07-09] MEDS ORDERED: HOLD METFORMIN - RECEIVED CONTRAST 20 ML VIAL IV SCH (08:30)
[2019-07-09] MEDS ORDERED: IOHEXOL 350 MG/ML 100 ML (OMNIPAQUE 350) VIAL IV ONE (08:30)
[2019-07-09] MEDS ORDERED: DIATRIZOATE MEGLUM/SODIUM 37% 120 ML (GASTROGRAFIN) PO ONE (08:30)
--- NOTE | 2019-07-09 08:30 | Diagnostic Imaging Report ---
INDICATION: Respiratory distress. Comparison is made with prior examination from 07/08/2019. FINDINGS: There is cardiomegaly. There is some venous congestion. There is no pneumothorax. The mediastinum is unremarkable. Left upper extremity PICC line has its tip in the superior vena cava. IMPRESSION: Cardiomegaly and mild venous congestion. PICC line in satisfactory position Dictated by: Dictated on workstation # [id number]
--- NOTE | 2019-07-09 08:42 | Cardiology Progress Note ---
Subjective Date Seen by Provider: Jul 09, 2019 Time Seen by Provider: 08:39 Subjective/Events-last exam Patient is laying down in bed, on nasal cannula, awake, denied any chest pain Review of Systems General: No Chills, No Night Sweats, No Fatigue, No Malaise, No Appetite, No Other HEENT: No Head Aches, No Visual Changes, No Eye Pain, No Ear Pain, No Dysphasia, No Sinus Congestion, No Post Nasal Drip, No Sore Throat, No Other Pulmonary: No Dyspnea, No Cough, No Pleuritic Chest Pain, No Other Cardiovascular: No: Chest Pain, Palpitations, Orthopnea, Paroxysmal Noc. Dyspnea, Edema, Lt Headedness, Other Focused Exam Lactate Level 07/08/19 17:25: Lactic Acid Level 0.69 Objective-Cardiology Exam Last Set of Vital Signs Vital Signs 07/09/19 07/09/19 07/09/19 04:00 06:00 07:18 Temp 37.0 Pulse 84 Resp 8 B/P (MAP) 133/80 (97) Pulse Ox 95 O2 Delivery Nasal Cannula O2 Flow Rate 2.00 FiO2 21 Capillary Refill : I&O Intake and Output 07/09/19 00:00 Intake Total 710 ml Output Total 925 ml Balance -215 ml Intake Oral 0 ml IV Total 710 ml Output Urine Total 925 ml # Emeses 1 Daily Weight Change No General: Alert, Oriented X3, Cooperative HEENT: Atraumatic, PERRLA Neck: Supple, No JVD, No Thyromegaly Lungs: Clear to Auscultation, Normal Air Movement Heart: Regular Rate, Normal S1, Normal S2, No Murmurs Abdomen: Soft, No Tenderness, No Hepatosplenomegaly, No Masses Extremities: No Clubbing, No Cyanosis, No Edema, Normal Pulses, No Tenderness/ Swelling Skin: No Rashes, No Breakdown, No Significant Lesion Neuro: Normal Speech, Sensation Intact Psych/Mental Status: Mood NL Results Lab Laboratory Tests 07/08/19 09:31 07/09/19 03:02 A/P-Cardiology Admission Diagnosis AMS Suspected CO2 narcosis DAYANA HTN HLP Assessment/Plan Status post acute change in mental status with CO2 narcosis, currently better, off C Pap on nasal cannula and doing better Obesity hypoventilation syndrome, status post respiratory failure. Better at this time Confusion, depression. Questionable encephalopathy. Workup was negative, seen by neurologist in the past. Managed by primary care team Severe DAYANA, noncompliant with treatment in the past, currently on C Pap Morbid obesity Questionable encephalopathy- w/u negative so far. Consider neurology eval HTN- continue to monitor Hx of WPW Chronic edema Prediabetes Clinical Quality Measures DVT/VTE Risk/Contraindication: Risk Factor Score Per Nursin RFS Level Per Nursing on Admit: 4+=Very High MELANY SEAMAN MD Jul 09, 2019 08:42
[2019-07-09] MEDS: risperiDONE 1 MG (RisperDAL) TAB PO SCH ×2 (09:12→19:30)
[2019-07-09] MEDS: LEVETIRACETAM INJECTION 500 MG in NS (IVPB) 100 ML IV SCH ×2 (09:12→19:30)
--- NOTE | 2019-07-09 09:20 | Diagnostic Imaging Report ---
PROCEDURE: CT chest, abdomen, and pelvis with contrast. TECHNIQUE: Multiple contiguous axial images were obtained through the chest, abdomen, and pelvis after the administration of intravenous contrast. Auto Exposure Controls were utilized during the CT exam to meet ALARA standards for radiation dose reduction. INDICATION: Possible bowel obstruction and pneumonia. No prior studies are available for comparison. CT chest: No axillary lymphadenopathy is detected. No definite mediastinal or hilar lymphadenopathy is identified. No pericardial fluid is identified. There appears to be trace left pleural fluid or pleural thickening. Overall lung volumes are diminished. There is subsegmental atelectasis bilateral lower lobes and lingula. No consolidated infiltrate or pulmonary mass is identified. IMPRESSION: Trace left effusion with bibasilar atelectasis. Lung volumes are diminished. No thoracic lymphadenopathy is detected. CT abdomen and pelvis: No discrete liver mass is identified. The gallbladder is unremarkable. No biliary ductal dilatation is seen. The pancreas and spleen are unremarkable. No adrenal mass is identified. Kidneys are unremarkable. There is no evidence of calculi or hydronephrosis. The aorta is non-aneurysmal. There is diffuse gaseous distention to the colon. There is diverticulosis of the sigmoid colon but no evidence of acute diverticulitis. No definite small bowel distention is identified. There is no free fluid or fluid collection. No free air is identified. There is moderate stool in the rectum. Bladder is decompressed by a Zhang catheter. There are postop changes of right hip arthroplasty. Bony structures are nonacute. IMPRESSION: Diffuse gaseous distention throughout the colon suggestive of colonic ileus. Small bowel is nondilated. No definite small bowel obstruction is seen. No acute inflammatory process is detected. There are findings of uncomplicated sigmoid diverticulosis. Dictated by: Dictated on workstation # [id number]
--- NOTE | 2019-07-09 10:25 | Progress Note - Hospitalist ---
[facility] 07/09/19 1025: Subjective HPI/CC On Admission Date Seen by Provider: Jul 09, 2019 Time Seen by Provider: 10:21 CC: Respiratory insufficiency HPI: This is a 64yoWM pt of Gabby Henning who presented to [facility] after I transferred him [place] [facility] [place] admitted late last night from [place] [facility] due to altered mental status. He has a long standing history of untreated DAYANA refusing CPAP in the past who had hip replacement surgery in [place] 6 weeks ago, discharged and just two weeks ago had significant altered mental status, sent to [place] after observation at [place] and thre he had an MRI and spinal tap and neurology consult looking for tickborne illness as the source so he was placed on Doxycyline but had been intubed and extubated and discharged home who continued to have issue when he got home so he was sent to the senior unit and this morning I noted apnea episodes before he was awake so I obtained and ABG showing significant respiratory insufficiency, pH of 7.27/58/46 requiring transfer to higher level of care for pulmonology. My theory is untreated DAYANA for many years, worsened with gradual CO2 Narcosis since anesthesia with surgery and pain medication, off work and sleeping more caused all of the altered mental status. At this current time pt is tolerating biPAP, ABG shows much improved numbers and pt remains stable. Subjective/Events-last exam Nl RR Stable vitals improved mentation LUE weakness, not able to use LUE to eat or brush teeth; ok using RUE bilat mild ankle swelling Denies any pain Hgb dropped to 11.6 from 13.4 Continued alkalosis from yesterday w hypocapnia Seen by Cardiology and pulmonology; both will continue to monitor pt Low K+, and Phosphate hypoxemia still Urine serology negative for Legionella pneumophila Pending S. Pneumoniae serology Review of Systems General: No Chills, No Night Sweats HEENT: No Head Aches Pulmonary: Dyspnea, Cough Cardiovascular: No: Chest Pain, Palpitations Gastrointestinal: No: Nausea, Vomiting Musculoskeletal: arm pain (left arm pain and weakness) Focused Exam Lactate Level 07/08/19 17:25: Lactic Acid Level 0.69 Objective Exam Vital Signs Vital Signs Date Time Temp Pulse Resp B/P (MAP) Pulse Ox O2 Delivery O2 Flow Rate FiO2 07/09/19 11:13 94 Nasal Cannula 9/19/19 10:00 77 26 137/85 (102) 2.00 07/09/19 04:00 37.0 07/09/19 04:00 21 Capillary Refill : General Appearance: No Apparent Distress, WD/WN, Obese HEENT: Normal ENT Inspection Neck: Normal Inspection Respiratory: Chest Non Tender, Lungs Clear, Normal Breath Sounds, No Accessory Muscle Use, No Respiratory Distress Cardiovascular: Regular Rate, Rhythm, No Edema, No Gallop, No JVD, No Murmur, Normal Peripheral Pulses Neurologic/Psychiatric: Oriented x3 (able to tell me his name and age, and year, and where he is, but is mildly delirious keeps talking about sharif) Results/Procedures Lab Laboratory Tests 07/09/19 03:02 Patient resulted labs reviewed. Assessment/Plan Assessment and Plan Assess & Plan/Chief Complaint 1 AMS with recent hospital stay in [facility] with extensive, inconclusive work up * Improved mentation, able to talk and partially answer questions * Continue monitoring cognition 2 Acute Respiratory failure suspect Acute on chronic CO2 narcosis * hx of recent hospitalization, anesthesia, chronic untreated DAYANA, OHS * Continue monitoring ABGs * Trial pt on NC per Dr. Briscoe's recommendation 3 Severe Sleep Apnea, Non-compliant with tx 4 Morbid Obesity with OHS * Per Dr. Briscoe, Pt would benefit from home vent to mask 5 Hypokalemia & Hypophosphatemia * Replace electrolytes 6 Encephalopathy * Likely 2/2 Progressive hypercapnia causing cranial hyperperfusion leading to edema and increased intracranial pressure 7 CXR on 07/08: Low lung volumes w/ developing bibasilar atelectasis and or pn eumonitis, stable significant elevation of right hemidiaphragm suggesting diaphragmatic paralysis consistent w/ OHS 8 Abd distention * abd/pelvic XR showed: Diffuse gaseous distention throughout the colon suggestive of colonic ileus 9 Hc of WPW 10 Chronic Edema 11 Sigmoid Diverticulosis 12 Prediabetes 13 Anxiety 14 Obesity 15 HTN 16 Osteoarthritis 15 Hyperlipidemia Clinical Quality Measures DVT/VTE Risk/Contraindication: Risk Factor Score Per Nursin RFS Level Per Nursing on Admit: 4+=Very High RAMOS CIFUENTES DO 07/09/192126: Subjective Subjective/Events-last exam Pt much improved today. Talks a lot and does not excelsior picker on social cues but is oriented and is able to tell me he works for the [employer] and works for the [employer] and that he is . Very encouraging with the clearance of confusion and he is off BiPAP and will be moved to fourth floor. Will get Pt up and around and hopefully will become mentally clearer so we can discharge home. Diagnosis/Problems Diagnosis/Problems (1) CO2 narcosis Status: Acute (2) Obesity hypoventilation syndrome Status: Chronic (3) DAYANA (obstructive sleep apnea) Status: Chronic (4) Obesity (BMI 30-39.9) Status: Chronic Supervisory-Addendum Brief Verification & Attestation Participated in pt care: history, MDM, physical Personally performed: exam, history, MDM, supervision of care Care discussed with: Medical Student Procedures: n/a Results interpretation: Verified all documentation Verification and Attestation of Medical Student E/M Service A medical student performed and documented this service in my presence. I reviewed and verified all information documented by the medical student and made modifications to such information, when appropriate. I personally performed the physical exam and medical decision making. Ramos Cifuentes, Jul 09, 2019,21:27 [facility] ST[facility] Jul 09, 2019 10:25 RAMOS CIFUENTES DO Jul 09, 2019 21:27
--- NOTE | 2019-07-09 13:00 | NUR ---
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 He engaged in sharing about his marina.
--- NOTE | 2019-07-09 13:16 | NUR ---
Pt is [employer] and reports that Fr Lyon was here this morning to anoint and provide Communion.
--- NOTE | 2019-07-09 15:09 | Occupational Therapy Eval ---
OT Evaluation-General/PLF Medical Diagnosis Admission Date Jul 08, 2019 at 08:53 Medical Diagnosis: Acute on chronic respiratory failure, AMS Onset Date: Jul 08, 2019 Therapy Diagnosis Therapy Diagnosis: Weakness Height/Weight Weight (Pounds): 276 Weight (Ounces): 0.5 Precautions Precautions/Isolations: Aspiration, Fall Prevention, Standard Precautions Safety Interventions: Reorient-PRN Referral Physician: Dr. Mendez Referral Reason: Activity Tolerance, Self Care, Evaluation/Treatment, Strengthening/ROM Medical History Pertinent Medical History: DM, HTN, OA Additional Medical History Chronic edema, AMS, bowel surgery, right knee repair Reviewed History: Yes Social History Current Living Status: Spouse Pt. is in and out of confusion. Is unable to fully give history. ADL-Prior Level of Function Therapy Code Descriptions/Definitions Functional [place] Measure: 0=Not Assessed/NA 4=Minimal Assistance 1=Total Assistance 5=Supervision or Setup 2=Maximal Assistance 6=Modified [place] 3=Moderate Assistance 7=Complete [place] Therapy Quality Codes: 6 Independent with activity with or without an assistive device 5 Patient requires set up or clean up by helper. Patient completes activity by themselves 4 Supervision or touching assist (CGA). [place] provide cues , steadying assist 3 The helper provides less than half the effort to complete the activity 2 The helper provides more than half the effort to complete the activity 1 Dependent. The helper does all the effort to complete an activity 7 Patient refused to complete or attempt activity 9 The patient did not perform the activity before the current illness or injury 88 Not attempted due to Medical conditions or safety concerns Functional Abilities and Goals: Independent: Patient completed the activities by him/herself, with or without an assistive device, with no assistance from a helper. Needed Some Help: Patient needed partial assistance from another person to co mplete activities. Dependent: A helper completed the activities for the patient. Unknown: Not Applicable: ADL PLOF Comments Unable to determine this information. Pt. is nonsensical at times and talks/mumbles throughout treatment. Self Care: Unknown Functional Cognition: Unknown OT Current Status Appearance Pt. in bed. Agreeable to work with OT. Mental Status/Objective Patient Orientation: Confused, Mumbles ADL-Treatment Therapy Code Descriptions/Definitions Functional [place] Measure: 0=Not Assessed/NA 4=Minimal Assistance 1=Total Assistance 5=Supervision or Setup 2=Maximal Assistance 6=Modified [place] 3=Moderate Assistance 7=Complete [place] Therapy Quality Codes: 6 Independent with activity with or without an assistive device 5 Patient requires set up or clean up by helper. Patient completes activity by themselves 4 Supervision or touching assist (CGA). [place] provide cues , steadying assist 3 The helper provides less than half the effort to complete the activity 2 The helper provides more than half the effort to complete the activity 1 Dependent. The helper does all the effort to complete an activity 7 Patient refused to complete or attempt activity 9 The patient did not perform the activity before the current illness or injury 88 Not attempted due to Medical conditions or safety concerns Eating (FIM): 2 Grooming (FIM): 2 Pt. in bed. OT introduces self. Pt. is able to verbalize some information, but then will start talking about something that does not make sense. Pt. and OT work on feeding and grooming this date. Pt. closes eyes through most of session and will not initiate holding spoon or toothbrush. With encouragement and max assist, devices are placed in pt's hand and then assisted to mouth. Pt. demonstrates some effort to bring to mouth, but will often ask OT to turn his spoon or brush without attempting to do so himself. Pt. is unable to report why he feels that he can't move his arms, but will state, "I just can't." Attempt to keep pt. on topic with activities. Pt. verbalizes he is hungry and has been cleared by ST and nursing for food. OT attempts to order him some soft foods, but diet has not been updated. Notified nursing of this. All needs met and pt. talking with medical student at end of treatment. Education OT Patient Education: Correct positioning, Modified ADL techniques, Progress toward Goal/Update tx plan, Purpose of tx/functional activities, Reviewed precautions, Rehab process Teaching Recipient: Patient Teaching Methods: Demonstration, Discussion Response to Teaching: Verbalize Understanding, Return Demonstration OT Short Term Goals Short Term Goals Time Frame: Jul 16, 2019 Eating(FIM): 3 Grooming(FIM): 3 Upper Body Dressing(FIM): 3 Transfers (B,C,W/C) (FIM): 3 Additional Short Term Goals: 1-Demonstrate ADL Tasks, 2-Verbalize Understanding, 3-ImproveStrength/Shayy 1=Demonstrate adherence to instructed precautions during ADL tasks. 2=Patient will verbalize/demonstrate understanding of assistive devices/modifications for ADL. 3=Patient will improve strength/tolerance for activity to enable patient to perform ADL's. OT Longterm Goals Longterm Goals Time Frame: Jul 23, 2019 Eating (FIM): 5 Grooming(FIM): 5 Upper Body Dressing(FIM): 5 Lower Body Dressing(FIM): 5 Toileting(FIM): 6 Transfers (B,C,W/C) (FIM): 6 Toilet/Commode Transfer(FIM): 6 Additional Goals: 1-Demonstrate ADL Tasks, 2-Verbalize Understanding, 3- ImproveStrength/Shayy 1=Demonstrate adherence to instructed precautions during ADL tasks. 2=Patient will verbalize/demonstrate understanding of assistive devices/modifications for ADL. 3=Patient will improve strength/tolerance for activity to enable patient to perform ADL's. OT Education/Plan Problem List/Assessment Assessment: Decreased Activ Tolerance, Decreased Safety Aware, Decreased UE Strength, Dependent Transfers, Impaired Bed Mobility, Impaired Cognition, Impaired Coordination, Impaired Funct Balance, Impaired I ADL's, Impaired Self- Care Skills, Restricted Funct UE ROM Discharge Recommendations Plan/Recommendations: Continue POC Comment Equipment needs and discharge location to be determined. Treatment Plan/Plan of Care Treatment,Training & Education: Yes Patient would benefit from OT for education, treatment and training to promote independence in ADL's, mobility, safety and/or upper extremity function for ADL's. Plan of Care: ADL Retraining, Functional Mobility, UE Funct Exercise/Act Treatment Duration: Jul 23, 2019 Frequency: 5 times per week Estimated Hrs Per Day: .5 hour per day Agreement: Yes Rehab Potential: Fair Time/GCodes Start Time: 11:20 Stop Time: 11:46 Total Time Billed (hr/min): 26 Billed Treatment Time 1, EVH x 10minutes, ADL x 16minutes GAIL VELA OT Jul 09, 2019 15:09
--- NOTE | 2019-07-09 18:50 | NUR ---
TRANSFERRED FROM ICU TO ROOM 433 PER BED.
[2019-07-10] MEDS: D5 NS 1000 ML IV SOLUTION 1,000 ML IV SCH ×2 (00:01→08:56)
[2019-07-10] MEDS: RT-ALBUTEROL/IPRATROPIUM 3 ML (DUONEB) VIAL INH SCH ×3 (01:12→10:47)
[2019-07-10] MEDS: HALOPERIDOL 5 MG/ML (HALDOL) AMP IM PRN (01:33)
--- NOTE | 2019-07-10 02:20 | NUR ---
PT. CONFUSED AND THRASHING IN BED. PULLED BIPAP MASK OFF AND PULLING AT PICC LINE. HALDOL 2MG IM GIVEN AT 0125 WITH NO RESULTS OF CALMING PT DOWN. DR. GARCIA NOTIFIED, NEW ORDERS RECEIVED: GIVE 2MG HALDOL IM ONCE NOW. WILL CONTINUE TO MONITOR.
[2019-07-10] MEDS ORDERED: HALOPERIDOL 5 MG/ML (HALDOL) AMP IM ONE (02:30)
[2019-07-10 04:00] VITALS: BP 125/93
[2019-07-10 05:07] LABS: BUN/CREATININE RATIO 10; CALCIUM 8.4 MG/DL (8.5-10.1); CARBON DIOXIDE 26 MMOL/L (21-32); CHLORIDE 110 MMOL/L (98-107); CREATININE SERUM 0.71 MG/DL (0.60-1.30); GFR ESTIMATED > 60; GLUCOSE 125 MG/DL (70-105); MAGNESIUM 1.7 MG/DL (1.6-2.4); PHOSPHORUS 2.3 MG/DL (2.3-4.7); POTASSIUM 3.2 MMOL/L (3.6-5.0); SODIUM 143 MMOL/L (135-145)
[2019-07-10] MEDS: LEVETIRACETAM INJECTION 500 MG in NS (IVPB) 100 ML IV SCH (08:56)
[2019-07-10] MEDS: risperiDONE 1 MG (RisperDAL) TAB PO SCH (08:56)
[2019-07-10 09:00] VITALS: BP 151/91
--- NOTE | 2019-07-10 09:51 | Physical Therapy Evaluation ---
PT Evaluation-General Medical Diagnosis Admission Date Jul 08, 2019 at 08:53 Medical Diagnosis: Acute on chronic respiratory failure, AMS Onset Date: Jul 08, 2019 Therapy Diagnosis Therapy Diagnosis: debility/weakness Height/Weight Weight (Pounds): 276 Weight (Ounces): 0.5 Precautions Precautions/Isolations: Fall Prevention, Standard Precautions Weight Bear Status Right Lower Extremity: Right Weight Bearing/Tolerated Left Lower Extremity: Left Weight Bearing/Tolerated Referral Physician: Dr. Mendez Reason for Referral: Evaluation/Treatment Medical History Pertinent Medical History: DM, HTN, OA Current History Transfer from [facility] secondary to severe sleep apnea with decrease in SAO2 and elevated CO2. Reviewed History: Yes Social History Current Living Status: Spouse Prior/Core FIM Prior Level of Function Therapy Code Descriptions/Definitions Functional [place] Measure: 0=Not Assessed/NA 4=Minimal Assistance 1=Total Assistance 5=Supervision or Setup 2=Maximal Assistance 6=Modified [place] 3=Moderate Assistance 7=Complete [place] Therapy Quality Codes: 6 Independent with activity with or without an assistive device 5 Patient requires set up or clean up by helper. Patient completes activity by themselves 4 Supervision or touching assist (CGA). [place] provide cues , steadying a ssist 3 The helper provides less than half the effort to complete the activity 2 The helper provides more than half the effort to complete the activity 1 Dependent. The helper does all the effort to complete an activity 7 Patient refused to complete or attempt activity 9 The patient did not perform the activity before the current illness or injury 88 Not attempted due to Medical conditions or safety concerns Functional Abilities and Goals: Independent: Patient completed the activities by him/herself, with or without an assistive device, with no assistance from a helper. Needed Some Help: Patient needed partial assistance from another person to complete activities. Dependent: A helper completed the activities for the patient. Unknown: Not Applicable: Bed Mobility: 7 Transfers (B,C,W/C) (FIM): 7 Gait: 7 Indoor Mobility (Ambulation): Independent Prior Devices Use: None PT Evaluation-Current Subjective Patient is in bed and talking to, it appears, himself since no one is in the room. Patient is very confused. Pain Numeric Pain Scale: 0-No Pain Location: No Pain Reported Objective Patient Orientation: Confused Problem Solving: Poor Attachments: Oxygen, Zhang Catheter, IV ROM/Strength ROM Lower Extremities bilateral LE WFL Strength Lower Extremities 4-/5 grossly bilateral LE ( unable to formally test due to confusion) Integumentary/Posture Integumentary refer to nursing notes. Bowel Incontinence: Yes Bladder Incontinence: Zhang Cath Posture WFL Neuromuscular (Tone, Coordination, Reflexes) grossly intact Sensory Vision: Functional Hearing: Impaired Sensation Right Lower Extremit: Impaired Sensation Left Lower Extremity: Impaired Transfers Therapy Code Descriptions/Definitions Functional [place] Measure: 0=Not Assessed/NA 4=Minimal Assistance 1=Total Assistance 5=Supervision or Setup 2=Maximal Assistance 6=Modified [place] 3=Moderate Assistance 7=Complete [place] Transfers (B, C, W/C) (FIM): 4 Scootin Rollin Supine to/from Sit: 4 Sit to/from Stand: 5 Gait Mode of Locomotion: Walk Anticipated Mode of Locomotion: Walk Gait (FIM): 1 Distance (FIM): 1=up to 49 ft Distance: 10' Gait Level of Assist: 4 Gait Persons Needed: 1 Gait Assistive Device: FWW Comments/Gait Description CGA for safety Balance Sitting Static: Normal Sitting Dynamic: Normal Standing Static: Normal Standing Dynamic: Normal Assessment/Needs 64 y.o. male, will benefit from skilled PT to address functional mobility to improve current LOF to safely return to home or care facility at maximum LOF. Patient is limited due to severe confusion. Rehab Potential: Fair PT Short Term Goals Short Term Goals Transfers (B,C,W/C) (FIM): 3 PT Erp Programmer Goals Erp Programmer Goals PT Erp Programmer Goals Time Frame: Jul 25, 2019 Transfers (B,C,W/C) (FIM): 6 Gait (FIM): 6 Gait distance (FIM): 3=150 ft Distance: 150' Gait Level of Assist: 6 Gait Assistive Device: FWW PT Plan Problem List Problem List: Activity Tolerance, Functional Strength, Safety, Balance, Gait, Transfer, Bed Mobility Treatment/Plan Treatment Plan: Continue Plan of Care Treatment Plan: Bed Mobility, Education, Functional Activity Shayy, Functional Strength, Gait, Safety, Therapeutic Exercise, Transfers Treatment Duration: Jul 25, 2019 Frequency: 6 times per week Estimated Hrs Per Day: .25 hour per day Patient and/or Family Agrees t: Yes Discharge Recommendations Therapy Discharge Recommendati: 24 Hour Supervision Time/GCodes Time In: 830 Time Out: 845 Total Billed Treatment Time: 15 Total Billed Treatment 1 visit EVMod 15 min SHERI OVIEDO PT Jul 10, 2019 09:51
--- NOTE | 2019-07-10 11:13 | NUR ---
provided prayer and Communion.
--- NOTE | 2019-07-10 11:20 | NUR ---
CM/BRADLY spoke with and SS at [facility], they are working on a direct placement of the patient back to the facility there. Faxed paperwork requested and will continue to follow.
[2019-07-10] MEDS ORDERED: IPRA3AMP31 INH (11:51)
--- NOTE | 2019-07-10 11:52 | Discharge Summary ---
Discharge Summary Hospital Course Was the Problem List Reviewed?: Yes Problems/Dx: (1) CO2 narcosis Status: Acute (2) Obesity hypoventilation syndrome Status: Chronic (3) DAYANA (obstructive sleep apnea) Status: Chronic (4) Obesity (BMI 30-39.9) Status: Chronic Hospital Course Date of Admission: Jul 08, 2019 at 08:53 Admission Diagnosis : Family Physician/Provider: No,Local Physician Date of Discharge: 07/10/19 Discharge Diagnosis: Acute on chronic respiratory failure, acute CO2 narcosis with delirium and confusion, obesity hypoventilation syndrome noncompliant with sleep apnea treatment Hospital Course: Patient had a short hospital course after his transfer to higher level care to the ICU for respiratory failure after being in the senior behavioral unit overnight and ABG revealed respiratory acidosis with hypercapnia. He was placed on BiPAP with aggressive treatment in the ICU CT scan of the chest abdomen and pelvis revealed no acute other malady so he was given supportive care and repeat ABGs multiple times revealed resolution of the respiratory failure. He was still very confused unable to tolerate direction with physical therapy and outpatient therapy with inpatient rehabilitation stay sent back to the senior [facility] unit for behavior medication modification and will be closely monitored for respiratory failure. Labs and Pending Lab Test: Laboratory Tests 07/09/19 11:58: Glucometer 150H 07/09/19 18:21: Glucometer 184H 07/09/19 20:52: Glucometer 153H 07/10/19 04:39: Sodium Level 143, Potassium Level 3.2L, Chloride Level 110H, Carbon Dioxide Level 26, Anion Gap 7, Blood Urea Nitrogen 7, Creatinine 0.71, Estimat Glomerular Filtration Rate > 60, BUN/Creatinine Ratio 10, Glucose Level 125H, Calcium Level 8.4L, Phosphorus Level 2.3, Magnesium Level 1.7 Microbiology 07/08/19 Blood Culture - Preliminary, Resulted Staph, Coag Neg (ETHYLENE COMPRESSOR OPERATOR) Home Meds Active Iprat-Albut 0.5-3(2.5) mg/3 ml (Ipratropium/Albuterol Sulfate) 3 Ml Ampul.neb 3 Ml INH RTQ4HR 7 Days Reported Nitroglycerin 0.4 Mg Tab.subl 0.4 Mg SL UD PRN Tylenol Extra Strength (Acetaminophen) 500 Mg Tablet 1,000 Mg PO Q4H PRN Aspirin 325 Mg Tablet 162.5 Mg PO DAILY TAKES 1/2 (325MG) TABLET Vitamin B-12 (Cyanocobalamin (Vitamin B-12)) 500 Mcg Tablet 500 Mcg PO DAILY Magnesium (Magnesium Oxide) 400 Mg Tablet 400 Mg PO DAILY Vitamin C (Ascorbate Calcium) 500 Mg Tablet 500 Mg PO DAILY Zinc (Zinc Amino Acid Chelate) 50 Mg Tablet 50 Mg PO DAILY Centrum Silver Men Tablet (Multivit-Min/FA/Lycopen/Lutein) 1 Each Tablet 1 Tab PO DAILY Niacin 500 mg Capsule (Niacin (Inositol Niacinate)) 500 Mg Capsule 1,000 Mg PO HS TAKES 2 (500MG) CAPSULES Metoprolol Tartrate 25 Mg Tablet 25 Mg PO BID Potassium Chloride 20 Meq Tab.er.prt 20 Meq PO DAILY Amlodipine Besylate 10 Mg Tablet 10 Mg PO DAILY Lisinopril 40 Mg Tablet 80 Mg PO DAILY TAKES 2 (40MG) TABLETS Lovastatin 40 Mg Tablet 80 Mg PO HS TAKES 2 (40MG) TABLETS Triamterene-Hctz 37.5-25 mg Tb (Triamterene/Hydrochlorothiazid) 1 Each Tablet 1 Tab PO DAILY Doxycycline Monohydrate 100 Mg Capsule 100 Mg PO BID 7 Days 7 DAY SUPPLY FILLED 07-03-19 Assessment/Pt Instructions Transferred to [facility] Senior behavioral unit Discharge Planning: <30 minutes discharge planning Discharge Instructions Discharge Diet: No Restrictions Activity as Tolerated: Yes Discharge Physical Examination Vital Signs Vital Signs Date Time Temp Pulse Resp B/P (MAP) Pulse Ox O2 Delivery O2 Flow Rate FiO2 07/10/19 10:47 93 Nasal Cannula 2.00 07/10/19 09:00 36.3 111 20 151/91 (111) 07/09/19 04:00 21 General Appearance: No Apparent Distress, WD/WN, Chronically ill, Obese, Other (confused) Respiratory: Chest Non Tender, Lungs Clear, Normal Breath Sounds, No Accessory Muscle Use, No Respiratory Distress Cardiovascular: Regular Rate, Rhythm, No Edema, No Gallop, No JVD, No Murmur, Normal Peripheral Pulses Neurologic/Psychiatric: Alert, Oriented x3, No Motor/Sensory Deficits, Normal Mood/Affect Allergies: Coded Allergies: azithromycin (Verified Allergy, Unknown, 07/08/19) Discharge Summary Date of Admission Jul 08, 2019 at 08:53 Date of Discharge Discharge Date: Jul 10, 2019 Admission Diagnosis Assessment: Acute on chronic respiratory failure Acute on chronic CO2 narcosis Obesity DM HTN CRI OA Plan: Monitor CO2 BiPAP Appreciate Dr Briscoe Discharge Diagnosis (1) CO2 narcosis Status: Acute (2) Obesity hypoventilation syndrome Status: Chronic (3) DAYANA (obstructive sleep apnea) Status: Chronic (4) Obesity (BMI 30-39.9) Status: Chronic Clinical Quality Measures DVT/VTE Risk/Contraindication: Risk Factor Score Per Nursin RFS Level Per Nursing on Admit: 4+=Very High RAMOS CIFUENTES DO Jul 10, 2019 11:52
--- NOTE | 2019-07-10 11:56 | Occupational Ther Daily Note ---
OT Current Status-Daily Note Subjective Pt sitting in chair, confused. Pt talks constantly throughout session, but speech is random and pt is unable to participate in conversation with therapist. Mental Status/Objective Therapy Code Descriptions/Definitions Functional [place] Measure: 0=Not Assessed/NA 4=Minimal Assistance 1=Total Assistance 5=Supervision or Setup 2=Maximal Assistance 6=Modified [place] 3=Moderate Assistance 7=Complete [place] Attachments: Zhang Catheter, IV, Oxygen ADL-Treatment Pt sitting in chair where grooming tasks were initiated. When given a washcloth pt was able to wash hands with verbal cues. Pt used brush to comb sides of head, but required assist to comb the back. Pt is easily distracted and requires cues for task completion. Pt sitting in chair with needs met after session. OT Short Term Goals Short Term Goals Time Frame: Jul 16, 2019 Eating(FIM): 3 Grooming(FIM): 3 Upper Body Dressing(FIM): 3 Transfers (B,C,W/C) (FIM): 3 Additional Short Term Goals: 1-Demonstrate ADL Tasks, 2-Verbalize Understanding, 3-ImproveStrength/Shayy 1=Demonstrate adherence to instructed precautions during ADL tasks. 2=Patient will verbalize/demonstrate understanding of assistive devices/modifications for ADL. 3=Patient will improve strength/tolerance for activity to enable patient to perform ADL's. OT Paper Novelty Maker Goals Paper Novelty Maker Goals Time Frame: Jul 23, 2019 Eating (FIM): 5 Grooming(FIM): 5 Upper Body Dressing(FIM): 5 Lower Body Dressing(FIM): 5 Toileting(FIM): 6 Transfers (B,C,W/C) (FIM): 6 Toilet/Commode Transfer(FIM): 6 Additional Goals: 1-Demonstrate ADL Tasks, 2-Verbalize Understanding, 3- ImproveStrength/Shayy 1=Demonstrate adherence to instructed precautions during ADL tasks. 2=Patient will verbalize/demonstrate understanding of assistive devices/modifications for ADL. 3=Patient will improve strength/tolerance for activity to enable patient to perform ADL's. OT Education/Plan Discharge Recommendations Plan/Recommendations: Continue POC Treatment Plan/Plan of Care Patient would benefit from OT for education, treatment and training to promote independence in ADL's, mobility, safety and/or upper extremity function for ADL's. Plan of Care: ADL Retraining, Functional Mobility, UE Funct Exercise/Act Treatment Duration: Jul 23, 2019 Frequency: 5 times per week Estimated Hrs Per Day: .5 hour per day Agreement: Yes Rehab Potential: Fair Time/GCodes Start Time: 11:15 Stop Time: 11:25 Total Time Billed (hr/min): 10 Billed Treatment Time 1 visit, ADL(10minutes) CHARITO JOE OT Jul 10, 2019 11:56
--- NOTE | 2019-07-10 12:00 | Pulmonary Progress Note ---
Subjective Time Seen by a Provider: 12:21 Subjective/Events-last exam Pt is more awake. Sepsis Event Evaluation Height, Weight, BMI Height: '" Weight: 276lbs. 0.5oz. 125.852998em; 37.96 BMI Method: Focused Exam Lactate Level 07/08/19 17:25: Lactic Acid Level 0.69 Exam Exam Vital Signs Date Time Temp Pulse Resp B/P (MAP) Pulse Ox O2 Delivery O2 Flow Rate FiO2 07/10/19 10:47 93 Nasal Cannula 2.00 07/10/19 09:00 36.3 111 20 151/91 (111) 95 Nasal Cannula 2.00 07/10/19 07:13 93 Nasal Cannula 2.50 07/10/19 04:00 37.0 82 24 125/93 (104) 92 Nasal Cannula 2.00 07/10/19 01:12 73 19 94 25.00 07/09/19 23:08 36.7 81 22 160/87 (111) 96 Face Tent 07/09/19 22:11 73 19 94 25.00 07/09/19 19:39 37.1 95 18 131/70 (90) 92 Nasal Cannula 2.00 07/09/19 18:32 91 Nasal Cannula 2.00 07/09/19 17:00 88 21 124/88 (100) 95 Nasal Cannula 2.00 07/09/19 16:00 96 Nasal Cannula 2.00 07/09/19 16:00 37.0 92 22 122/73 (89) 96 Nasal Cannula 2.00 07/09/19 15:02 94 Nasal Cannula 07/09/19 15:00 82 28 116/76 (89) 93 Nasal Cannula 2.00 07/09/19 14:00 74 32 118/73 (88) 93 Nasal Cannula 2.00 07/09/19 13:00 92 17 123/66 (85) 93 Nasal Cannula 2.00 07/09/19 13:00 87 I & O 07/10/19 07:00 Intake Total 2295 ml Output Total 2150 ml Balance 145 ml Height & Weight Height: '" Weight: 276lbs. 0.5oz. 125.293881pw; 37.96 BMI Method: General Appearance: No Apparent Distress, WD/WN, Obese HEENT: Normal ENT Inspection Neck: Normal Inspection Respiratory: Chest Non Tender, Lungs Clear, Normal Breath Sounds, No Accessory Muscle Use, No Respiratory Distress Cardiovascular: Regular Rate, Rhythm, No Edema, No Gallop, No JVD, No Murmur, Normal Peripheral Pulses Extremity: Normal Capillary Refill, Normal Inspection, Pedal Edema (trace) Neurologic/Psychiatric: Oriented x3 (able to tell me his name and age, and year, and where he is, but is mildly delirious keeps talking about sharif) Skin: Normal Color, Warm/Dry Results Lab Laboratory Tests 07/09/19 03:02 07/10/19 04:39 Assessment/Plan Assessment/Plan Acute respiratory failure probably secondary to OHS - improving with nocturnal noninvasive ventilation -Continue noninvasive ventilation at night -Will continue to try to get pt home vent to mask. -Monitor ABG -Trial pt on NC Morbid obesity with OHS - Pt would benefit from home vent to mask -C02 at [facility] was 57 Anemia -Monitor KIM EATON DO Jul 10, 2019 12:00
[2019-07-10 12:03] VITALS: BP 154/93
--- NOTE | 2019-07-10 14:25 | Cardiology Progress Note ---
Subjective Date Seen by Provider: Jul 10, 2019 Time Seen by Provider: 14:25 Subjective/Events-last exam patient is laying down in bed, feeling better. No new complaint. No chest pain Review of Systems General: No Chills, No Night Sweats, No Fatigue, No Malaise, No Appetite, No Other HEENT: No Head Aches, No Visual Changes, No Eye Pain, No Ear Pain, No Dysphasia, No Sinus Congestion, No Post Nasal Drip, No Sore Throat, No Other Pulmonary: No Dyspnea, No Cough, No Pleuritic Chest Pain, No Other Cardiovascular: No: Chest Pain, Palpitations, Orthopnea, Paroxysmal Noc. Dyspnea, Edema, Lt Headedness, Other Focused Exam Lactate Level 07/08/19 17:25: Lactic Acid Level 0.69 Objective-Cardiology Exam Last Set of Vital Signs Vital Signs 07/09/19 07/10/19 04:00 12:03 Temp 36.9 Pulse 94 Resp 28 B/P (MAP) 154/93 (113) Pulse Ox 96 O2 Delivery Nasal Cannula O2 Flow Rate 2.00 FiO2 21 Capillary Refill : Less Than 3 Seconds I&O Intake and Output 07/10/19 00:00 Intake Total 3545 ml Output Total 1750 ml Balance 1795 ml Intake Oral 825 ml IV Total 2720 ml Output Urine Total 1750 ml General: Alert, Oriented X3, Cooperative HEENT: Atraumatic, PERRLA Neck: Supple, No JVD, No Thyromegaly Lungs: Clear to Auscultation, Normal Air Movement Heart: Regular Rate, Normal S1, Normal S2, No Murmurs Abdomen: Soft, No Tenderness, No Hepatosplenomegaly, No Masses Extremities: No Clubbing, No Cyanosis, No Edema, Normal Pulses, No Tenderness/Swelling Skin: No Rashes, No Breakdown, No Significant Lesion Neuro: Normal Speech, Sensation Intact Psych/Mental Status: Mood NL Results Lab Laboratory Tests 07/10/19 04:39 A/P-Cardiology Admission Diagnosis AMS Suspected CO2 narcosis DAYANA HTN HLP Assessment/Plan Status post acute change in mental status with CO2 narcosis, currently better, off C Pap on nasal cannula and doing better Obesity hypoventilation syndrome, status post respiratory failure. Better at this time Confusion, depression. Questionable encephalopathy. Workup was negative, seen by neurologist in the past. Managed by primary care team Severe DAYANA, noncompliant with treatment in the past, currently on C Pap Morbid obesity Questionable encephalopathy- w/u negative so far. Consider neurology eval HTN- continue to monitor Hx of WPW Chronic edema Prediabetes Clinical Quality Measures DVT/VTE Risk/Contraindication: Risk Factor Score Per Nursin RFS Level Per Nursing on Admit: 4+=Very High MELANY SEAMAN MD Jul 10, 2019 14:25
--- NOTE | 2019-07-10 14:26 | NUR ---
CM/SS patient is transferring back to [facility]. Non-Emergent transportation will be used, they have been notified. Family was updated.
[2019-07-10 15:30] VITALS: BP 154/93
--- NOTE | 2019-07-10 15:30 | NUR ---
[facility] ( [facility]BDI RN CALLED REPORT) demonstrates understanding of discharge instructions and accurately returns instructions upon questioning. Copy of Post-Discharge Instructions given to [facility]. ADILENE PHAM is able to manage continuing needs after discharge WITH ASSISTANCE OF [facility]. Patients belongings returned to . Patient discharged from [facility] on 07/09/19 at 1530. ADILENE PHAM left floor via [facility], accompanied by TEA BLENDER.
== END 2019-07-10 15:30 | DRG 189 ==
LOC: ICU 08:53 → 4TH 07-09 18:50
PROVIDERS: ADMIT Internal Medicine; ATTEND Internal Medicine
DX: J96.22 Acute and chronic respiratory failure with hypercapnia (principal); J96.21 Acute and chronic respiratory failure with hypoxia; E66.2 Morbid (severe) obesity with alveolar hypoventilation; G93.40 Encephalopathy, unspecified; K56.7 Ileus, unspecified; I12.9 Hypertensive chronic kidney disease with stage 1 through stage 4 chronic kidney disease, or unspecified chronic kidney disease; N18.9 Chronic kidney disease, unspecified; M19.91 Primary osteoarthritis, unspecified site; E78.5 Hyperlipidemia, unspecified; R60.9 Edema, unspecified; R73.03 Prediabetes; I45.6 Pre-excitation syndrome; F41.9 Anxiety disorder, unspecified; E87.6 Hypokalemia; E83.39 Other disorders of phosphorus metabolism; R14.0 Abdominal distension (gaseous); F32.9 Major depressive disorder, single episode, unspecified; K57.90 Diverticulosis of intestine, part unspecified, without perforation or abscess without bleeding; D64.9 Anemia, unspecified; Z91.19 Patient's noncompliance with other medical treatment and regimen; Z85.828 Personal history of other malignant neoplasm of skin; Z68.37 Body mass index [BMI] 37.0-37.9, adult
CPT/HCPCS: 36415; 36569; 36600; 71045; 71260; 74177; 76937; 80048; 80053; 81000; 82805; 82962; 83605; 83735; 83880; 84100; 85025; 87040; 87088; 87449; 87899; 93306; 94640; 94660; 94760

== ENCOUNTER 2019-07-14 16:11 | Inpatient (IN) | payer BC ==
[~2019-07-14] VITALS: Ht 170 cm; Wt 126.1 kg
[~2019-07-14 16:11] MED LIST: ACET-2267 PO; AMLO10TA7 PO; ASCO-262 PO; ASPI-808 PO; CYAN500T62 PO; DOXY100C42 PO; IPRA3AMP31 INH; LISI40TA PO; LOVA40TA2 PO; MAGN400T39 PO; METO-333 PO; MULT-1061 PO; NIAC1CAP PO; NITR0.4T39 SL; POTA20TA15 PO; TRIA1TAB3 PO; ZINC50TA51 PO
[2019-07-14] MEDS ORDERED: VENL75CA PO (16:28)
[2019-07-14] MEDS ORDERED: ENOX40DI13 SQ (16:28)
[2019-07-14] MEDS ORDERED: LACT20SO2 PO (16:28)
--- NOTE | 2019-07-14 16:29 | NUR ---
DR. CIFUENTES SENT OVER A MEDICATION LIST FROM [facility]. I ENTERED IT INTO THE MED REC. I REMOVED THE ZINC, AND VITAMIN B12 THAT WAS REPORTED AT HIS PREVIOUS ADMISSION, WELL THE DUONEB THAT WAS ORDERED AT HIS LAST DISCHARGE. I ADDED NEW PRESCRIPTIONS EFFEXOR, LOVENOX, AND LACTULOSE AT THIS TIME. I WILL UPDATE THE MED REC BACK TO THE LIST OF MEDICATIONS THE PATIENT WAS TAKING PREVIOUSLY AT A LATER DATE FOR PROPER DISCHARGE TO HOME ORDERS. Addendum: 07/15/19 at 1030 by CORNELIO PHAM hydro station operator UPDATED THE MED REC TO THE LIST OF MEDICATIONS REPORTED UPON ADMISSION TO ICU LAST WEEK. I REMOVED THE THREE NEW MEDICATIONS: EFFEXOR, LOVENOX, AND LACTULOSE THAT WERE STARTED AT [place].
[2019-07-14 17:30] VITALS: BP 151/88
[2019-07-14 17:43] VITALS: BP 151/88
[2019-07-14] MEDS ORDERED: CALCIUM CARBONATE 500 MG (TUMS) TAB.CHEW PO PRN (17:45)
[2019-07-14] MEDS ORDERED: NON-FORMULARY MEDICATION 1 EA EA (Acetaminophen (Tylenol Extra Strength) 1,000 MG) PO PRN (17:45)
[2019-07-14] MEDS ORDERED: DOCUSATE SODIUM 100 MG (COLACE) CAP PO PRN (17:45)
[2019-07-14] MEDS ORDERED: ONDANSETRON 4 MG (ZOFRAN) ORAL DISSOLVE TAB PO PRN (17:45)
[2019-07-14] MEDS ORDERED: LOPERAMIDE 2 MG (IMODIUM) TABLET PO PRN (17:45)
[2019-07-14] MEDS ORDERED: ACETAMINOPHEN 500 MG TAB (TYLENOL) PO PRN ×2 (17:45→18:00)
[2019-07-14] MEDS ORDERED: NITROGLYCERIN 0.4 MG SL TABS BTL 25'S SL PRN (17:45)
[2019-07-14] MEDS: POLYETHYLENE GLYCOL 17 GM (MIRALAX) PACK PO SCH (20:55)
[2019-07-14] MEDS: LACTULOSE SYRUP 10GM/15ML (ENULOSE) 30ML UDC PO SCH (20:55)
[2019-07-14] MEDS ORDERED: NON-FORMULARY MEDICATION 1 EA EA (Lactulose 20 GM) PO SCH (21:00)
[2019-07-14] MEDS ORDERED: [UNRECOGNIZED DRUG - OTHER] PO SCH (21:00)
[2019-07-14] MEDS ORDERED: NIACIN PO SCH (21:00)
[2019-07-14] MEDS ORDERED: LOVASTATIN 80 MG PO SCH (21:00)
[2019-07-14] MEDS: meTOprolol TARTRATE 25 MG (LOPRESSOR) TABLET PO SCH (21:01)
[2019-07-14] MEDS: ENOXAPARIN 40 MG/0.4 ML (LOVENOX) SYR SC SCH (21:02)
[2019-07-14] MEDS: SENNA W/DOCUSATE (SENOKOT S) TABLET PO SCH (21:02)
[2019-07-15 05:10] VITALS: BP 155/90
[2019-07-15 05:12] LABS: BASOPHILS % (AUTO) 1 % (0-10); EOSINOPHILS # (AUTO) 0.2 10^3/uL (0.0-0.3); EOSINOPHILS % (AUTO) 4 % (0-10); HEMATOCRIT 38 % (40-54); HEMOGLOBIN 12.2 G/DL (13.3-17.7); LYMPHOCYTES # (AUTO) 1.2 X 10^3 (1.0-4.0); LYMPHOCYTES % (AUTO) 28 % (12-44); MEAN CORPUSCULAR HEMOGLOBIN 30 PG (25-34); MEAN CORPUSCULAR HGB CONC 32 G/DL (32-36); MEAN CORPUSCULAR VOLUME 94 FL (80-99); MEAN PLATELET VOLUME 11.1 FL (7.4-10.4); MONOCYTES # (AUTO) 0.6 X 10^3 (0.0-1.0); MONOCYTES % (AUTO) 15 % (0-12); NEUTROPHILS # (AUTO) 2.1 X 10^3 (1.8-7.8); NEUTROPHILS % (AUTO) 52 % (42-75); PLATELET COUNT 273 10^3/uL (130-400); RED CELL DISTRIBUTION WIDTH 13.2 % (10.0-14.5); WHITE BLOOD COUNT 4.1 10^3/uL (4.3-11.0)
[2019-07-15 05:45] LABS: ALANINE AMINOTRANSFERASE 21 U/L (0-55); ALBUMIN 3.5 GM/DL (3.2-4.5); ALKALINE PHOSPHATASE 59 U/L (40-136); BILIRUBIN,TOTAL 0.3 MG/DL (0.1-1.0); BUN/CREATININE RATIO 16; CARBON DIOXIDE 28 MMOL/L (21-32); CHLORIDE 102 MMOL/L (98-107); CREATININE SERUM 0.75 MG/DL (0.60-1.30); GFR ESTIMATED > 60; GLUCOSE 81 MG/DL (70-105); POTASSIUM 3.5 MMOL/L (3.6-5.0); SODIUM 140 MMOL/L (135-145); TOTAL PROTEIN 6.5 GM/DL (6.4-8.2)
[2019-07-15] MEDS: ASCORBIC ACID (VIT C) 500 MG TABLET PO SCH (06:45)
[2019-07-15] MEDS: TRIAMTERENE/HCTZ 75-50 (MAXZIDE,DYAZIDE) TABLET PO SCH (06:45)
[2019-07-15] MEDS: MULTIVIT W/MINERALS TAB (THERAGRAN M) PO SCH (06:45)
[2019-07-15] MEDS: VENlafaxine XR 75 MG (EFFEXOR XR) CAP PO SCH (06:45)
[2019-07-15] MEDS ORDERED: KCL 20 MEQ TAB (K-DUR) PO SCH (08:00)
--- NOTE | 2019-07-15 08:55 | Physical Therapy Evaluation ---
PT Evaluation-General Medical Diagnosis Admission Date Jul 14, 2019 at 17:00 Medical Diagnosis: CO2 narcosis with debility Onset Date: Jul 14, 2019 Therapy Diagnosis Therapy Diagnosis: impaired mobility, strength, endurance Height/Weight Weight (Pounds): 276 Weight (Ounces): 0.5 Precautions Precautions/Isolations: Fall Prevention, Standard Precautions Referral Physician: Leesa Mendez DO Reason for Referral: Evaluation/Treatment Medical History Pertinent Medical History: DM, HTN, OA Additional Medical History hyperlipidemia, chronic edema, sigmoid diverticulosis, prediabetes, anxiety, sleep apnea, right SHANTHI Social History Home: Single Level Current Living Status: Spouse Entry Into Home: Stairs With Railing PT Steps Into Home: 4 Prior/Core FIM Prior Level of Function Therapy Code Descriptions/Definitions Functional Barry Measure: 0=Not Assessed/NA 4=Minimal Assistance 1=Total Assistance 5=Supervision or Setup 2=Maximal Assistance 6=Modified Barry 3=Moderate Assistance 7=Complete Barry Therapy Quality Codes: 6 Independent with activity with or without an assistive device 5 Patient requires set up or clean up by helper. Patient completes activity by themselves 4 Supervision or touching assist (CGA). [place] provide cues , steadying assist 3 The helper provides less than half the effort to complete the activity 2 The helper provides more than half the effort to complete the activity 1 Dependent. The helper does all the effort to complete an activity 7 Patient refused to complete or attempt activity 9 The patient did not perform the activity before the current illness or injury 88 Not attempted due to Medical conditions or safety concerns Functional Abilities and Goals: Independent: Patient completed the activities by him/herself, with or without an assistive device, with no assistance from a helper. Needed Some Help: Patient needed partial assistance from another person to complete activities. Dependent: A helper completed the activities for the patient. Unknown: Not Applicable: Bed Mobility: 7 Transfers (B,C,W/C) (FIM): 7 Gait: 7 Stairs: 7 Indoor Mobility (Ambulation): Independent Stairs: Independent PT Evaluation-Current Subjective Patient in bed pre tx, agrees to PT, has 5/10 pain in both shoulders, worse on the left side. Patient is confused and rambles with speech. Pt/Family Goals none stated Objective Patient Orientation: Person, Confused Attachments: Oxygen 3L of O2 nasal canula ROM/Strength ROM Lower Extremities WNL Strenght Lower Extremities LLE (hip flexion 3+/5, knee flexion 4+/5, knee extension 4+/5, dorsiflexion 4+/5), RLE (hip flexion 3+/5, knee flexion 4+/5, knee extension 4+/5, dorsiflexion 3+/5) Sensory Vision: Functional Hearing: Functional Sensation Right Lower Extremit: Impaired Sensation Left Lower Extremity: Impaired Sensation Lower Extremities impaired both feet. Transfers Therapy Code Descriptions/Definitions Functional Barry Measure: 0=Not Assessed/NA 4=Minimal Assistance 1=Total Assistance 5=Supervision or Setup 2=Maximal Assistance 6=Modified Barry 3=Moderate Assistance 7=Complete Barry Therapy Quality Codes: 6 Independent with activity with or without an assistive device 5 Patient requires set up or clean up by helper. Patient completes activity by themselves 4 Supervision or touching assist (CGA). [place] provide cues , steadying assist 3 The helper provides less than half the effort to complete the activity 2 The helper provides more than half the effort to complete the activity 1 Dependent. The helper does all the effort to complete an activity 7 Patient refused to complete or attempt activity 9 The patient did not perform the activity before the current illness or injury 88 Not attempted due to Medical conditions or safety concerns Transfers (B, C, W/C) (FIM): 4 Scootin Rollin Roll Left to Right (QC): 4 Supine to/from Sit: 5 Sit to/from Stand: 4 Sit to Lying (QC): 4 Lying to Sitting/Side of Bed(Q: 4 Sit to Stand (QC): 4 Chair/Vya-go-Ycfln Xfer(QC): 4 Car Transfer (QC): 4 Patient performs bed mobility with SBA, supine <-> sit SBA, sit <-> stand CGA, transfers CGA, car transfer CGA. Patient needs occasional cues for direction and safety. Gets distracted easily. Gait Does the Patient Walk?: Yes Mode of Locomotion: Walk Anticipated Mode of Locomotion: Walk Gait (FIM): 4 Distance: 150'x2 Gait Level of Assist: 4 Gait Persons Needed: 1 Gait Assistive Device: FWW Comments/Gait Description Patient can ambulate 150' with a rolling walker with CGA (including 50' with at least 2 turns of 90 degrees and 10' over an uneven surface). Patient ambulates slowly but steady, cues for direction. Wheelchair Training Does the Pt Use a Wheelchair?: No Stairs Stairs (FIM): 1 #of Steps: 1 Level of Assist: 4 1 Step (curb) (QC): 4 Assistive Device: Walker Patient can go up and down 1 step with a rolling walker with CGA. Balance Sitting Static: Normal Sitting Dynamic: Normal Standing Static: Good Standing Dynamic: Good Treatment NuStep level 4 for 15 min, didn't use arms due to shoulder pain. Assessment/Needs Patient has impaired mobility, strength, endurance. He is confused and needs redirection and constantly rambles with speech. Rehab Potential: Fair PT Short Term Goals Short Term Goals Time Frame: Jul 22, 2019 Transfers (B,C,W/C) (FIM): 5 Gait (FIM): 5 Gait Distance Comment: 200' Gait Level of Assist: 5 Gait Assistive Device: FWW PT Chcf Goals Chcf Goals PT Hrbp Goals Time Frame: Aug 05, 2019 Transfers (B,C,W/C) (FIM): 6 Sit to Lying (QC): 6 Lying-Sitting on Side/Bed(QC): 6 Sit to Stand (QC): 6 Rollin Roll Left to Right (QC): 6 Chair/Zwm-jg-Yiutt Xfer(QC): 6 Car Transfer (QC): 6 Gait (FIM): 6 Distance: 300' Walk 10 feet (QC): 6 Walk 10ft-Uneven Surface(QC): 6 Walk 50ft with 2 Turns (QC): 6 Walk 150 ft (QC): 6 Gait Level of Assist: 6 Gait Assistive Device: FWW Stairs (FIM): 2 # of Steps: 4 1 Step (curb) (QC): 4 4 Steps (QC): 4 Stairs Level Of Assist: 5 PT Plan Problem List Problem List: Activity Tolerance, Functional Strength, Safety, Balance, Gait, Transfer Treatment/Plan Treatment Plan: Continue Plan of Care Treatment Plan: Bed Mobility, Education, Functional Activity Shayy, Functional Strength, Group Therapy, Gait, Safety, Therapeutic Exercise, Transfers Treatment Duration: Aug 05, 2019 Frequency: At least 5 of 7 days/Wk (IRF) Estimated Hrs Per Day: 1.5 hours per day Patient and/or Family Agrees t: Yes Safety Risks/Education Patient Education: Gait Training, Transfer Techniques, Steps, Correct Positioning, Safety Issues Teaching Recipient: Patient Teaching Methods: Demonstration, Discussion Response to Teaching: Reinforcement Needed Discharge Recommendations Plan Patient will perform bed mobility and transfer training, balance and endurance training, functional strengthening, stair training, gait training, and education, to improve functional mobility and independence at home. Therapy Discharge Recommendati: Other, See Comments (home with family) Time/GCodes Time In: 0800 Time Out: 0900 Total Billed Treatment Time: 60 Total Billed Treatment 1 visit EVM 30' EX 15' FA 15' ROBERTA TELLES PT Jul 15, 2019 08:55
[2019-07-15] MEDS ORDERED: NON-FORMULARY MEDICATION 1 EA EA (Triamterene/Hydrochlorothiazid (Triamterene-Hctz 37.5-25 PO SCH (09:00)
[2019-07-15] MEDS ORDERED: VENLAFAXINE HCL 75 MG PO SCH (09:00)
[2019-07-15] MEDS ORDERED: [UNRECOGNIZED DRUG - OTHER] PO SCH (09:00)
[2019-07-15] MEDS ORDERED: NON-FORMULARY MEDICATION 1 EA EA (Ascorbate Calcium (Vitamin C) 500 MG) PO SCH (09:00)
[2019-07-15] MEDS ORDERED: NON-FORMULARY MEDICATION 1 EA EA (Magnesium Oxide (Magnesium) 400 MG) PO SCH (09:00)
[2019-07-15] MEDS: ASPIRIN 325 MG (5 GR) TABLET PO SCH (09:29)
[2019-07-15] MEDS: MAGNESIUM OXIDE (MAG-OX)400 MG TAB PO SCH (09:30)
[2019-07-15] MEDS: meTOprolol TARTRATE 25 MG (LOPRESSOR) TABLET PO SCH ×2 (09:30→19:54)
[2019-07-15] MEDS: amLODIPine 5 MG (NORVASC) TAB PO SCH (09:30)
[2019-07-15] MEDS: LACTULOSE SYRUP 10GM/15ML (ENULOSE) 30ML UDC PO SCH ×2 (09:30→19:16)
[2019-07-15] MEDS: SENNA W/DOCUSATE (SENOKOT S) TABLET PO SCH ×2 (09:30→19:17)
[2019-07-15] MEDS: POLYETHYLENE GLYCOL 17 GM (MIRALAX) PACK PO SCH ×2 (09:30→19:17)
[2019-07-15] MEDS: lisINopril 40 MG (PRINIVIL) TABLET PO SCH (09:31)
[2019-07-15] MEDS: ENOXAPARIN 40 MG/0.4 ML (LOVENOX) SYR SC SCH ×2 (09:31→19:55)
--- NOTE | 2019-07-15 10:09 | ST Cognitive Linguistic Eval ---
Speech Evaluation-General Medical Diagnosis Impaired mobility, strength and endurance Onset Date: Jul 14, 2019 Therapy Diagnosis Therapy Diagnosis: Cognitive-communication Precautions Precautions: Fall Precautions/Isolations: Fall Prevention, Standard Precautions Referral Referring Physician: Dr. Mendez Reason for Referral: Evaluation/Treatment Medical History Pertinent Medical History: DM, HTN, OA DM, HTN, OA Current History Impaired mobility, strength and endurance Reviewed History: Yes Social History Home: Single Level Current Living Status: Spouse Speech PLF-Current Status Prior Level of Function Patient lived with his in their own home where he was independent for most of his daily needs. Subjective Patient was pleasant and compliant with cognitive assessment. Language Eval: Auditory Comprehends Simple Yes/No Ques: Functional Indent/Objects Multiple Smiley: Functional Ident/Pics in Multiple Smiley: Functional Follows 1-Step Commands: Functional Follows Complex Directions: Functional Follows General Conversations: Functional Language Eval: Verbal Language Completes Spontaneous Greeting: Functional Produces Auto, Serial Info: Functional Imitates Simple Words/Phrases: Functional Word Finding: Functional Requests Basic Needs: Functional States Basic Personal Info: Functional Expresses Complex Ideas: Functional Objective Cognitive Domain Attention: WNL Memory: WNL Problem Solving: Functional Executive Functions: WNL Visuospatial Skills: WNL Composite Severity Rating: WNL Clock Drawing Severity Rating: WNL Objective Formal/Standardized Tests [facility] Mental Status ([facility]) Results 30/30, within normal range of function Oral Motor/Speech Production Within Functional Limits Impression Patient is a pleasant 64 year old man who was admitted to the ARU for strengthening prior to returning home. The patient was given the SLUMS with a score of 30/30, within normal range of function. The patient does not require skilled ST services at this time. Communication/Social Cognition Comprehension: 7 Expression: 7 Social Interaction: 7 Problem Solvin Memory: 7 Speech Patient Assess Expression of Ideas/Wants: Expression (4) Understanding Verbal Content: Understands (4) Brief Interview-Mental Status: Yes Repetition of Three Words: Three (3) Temporal Orientation: Year: Correct (3) Temporal Orientation: Month: Accurate within 5 days(2) Temporal Orientation: Day: Correct (1) Recall : Wear to say "Sock": Yes, no cue required (2) Recall : Color: Yes, no cue required (2) Recall : Bed: Yes, no cue required (2) Memory/Recall Ability: Current season, Location of own room, That he or she is in a hsp/hsp unit Speech-Plan Patient/Family Goals Patient/Family Goals: The patient plans on returning to his home where he lives with his . Treatment Plan Speech Therapy Treatment Plan: Continue Plan of Care Patient does not require cognitive services at this time. Treatment Duration: Jul 15, 2019 Frequency: 1 time per week Estimated Hrs Per Day: .25 hour per day Rehab Potential: Fair Barriers to Learning: None identified Pt/Family Agrees to Plan: Yes Safety Risks/Education Teaching Recipient: Patient Teaching Methods: Discussion Response to Teaching: Verbalize Understanding Education Topics Provided: Safety within his room. Time Speech Therapy Time In: 09:00 Speech Therapy Time Out: 09:15 Total Billed Time: 15 Billed Treatment Time 1, REHAN Dean Jul 15, 2019 10:09
--- NOTE | 2019-07-15 10:10 | PM&R H&P / Post Admit Assess ---
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 Bruno in [facility] was sent home the next day began having problems with confusion and altered mental status who then presented to [facility] ER he was placed in observation ultimately sent to [place] for neurology workup which included MRI and spinal tap which all were unrevealing of source and then he was sent home and very rapidly began having more confusion sent [place] ER workup was negative so patient was sent to the senior behavioral unit [facility] last Saturday on 07/07/19 since all the workup was negative including ABG revealing pH is 7.56 CO2 26 and O2 of 92 who I assessed the following morning finding him into respiratory insufficiency when he was still sleeping with severe snoring and apnea ABG revealed pH is 7.2/58/52 confirming my suspicion this was acute on chronic CO2 narcosis due to untreated sleep apnea. He refuses to use a see Pap sheet he has at home and all of this was confirmed with Gabby Hennnig. Patient was transferred to via [facility] ICU placed on aggressive BiPAP regimen by pulmonology Dr. Briscoe and he improved and was able to go back to the senior behavioral unit on Saturday to work on hallucinations and delusions. He remained stable while in [facility] Haldol was initiated and delirium cleared and he was accepted to inpatient rehabilitation yesterday to complete his treatment and recovery in order to remain independent and go home with his family. Source: patient, RN/MD, old records Exam Limitations: no limitations Date Seen 07/15/19 Time Seen by a Provider: 09:00 Attending Physician Leesa Cifuentes DO PCP No,Local Physician Referring Physician Date of Admission Jul 14, 2019 at 17:00 Home Medications & Allergies Home Medications Reviewed patient Home Medication Reconciliation performed by pharmacy medication reconciliations forestry aid technician and/or nursing. Patients Allergies have been reviewed. Allergies Allergies Coded Allergies azithromycin (Verified Allergy, Unknown, 07/08/19) Past Nmolgga-Wzlytk-Ofzake Hx Past Med/Social Hx: Reviewed Nursing Past Med/Soc Hx, Reviewed and Corrections made Patient Social History Marrital Status: Employed/Student: employed ([employer]) Alcohol Use: Denies Use Recreational Drug Use: No Smoking Status: Never a Smoker Physical Abuse Screen: No Sexual Abuse: No Recent Foreign Travel: No Contact w/other who traveled: No Recent Hopitalizations: Yes Recent Infectious Disease Expo: No Immunizations Up To Date Tetanus Booster (TDap): Unknown Seasonal Allergies Seasonal Allergies: Yes Past Medical History Surgeries: Bowel Surgery, Cardiac, Orthopedic (07/[address] Right hip) Left temporal basal cell carcinoma excision Respiratory: Sleep Apnea Currently Using CPAP: No (ORDERED BUT DOES NOT USE) Currently Using BIPAP: Yes Cardiac: Chronic Edema/Swelling, High Cholesterol, Hypertension Hyperlipidemia, WPW Gastrointestinal: Diverticulosis Musculoskeletal: Arthritis Osteoarthritis prediabetes Cancer: Skin Did You Recieve Any Treatments: Yes What Type of Treatment Did You: Surgical Intervention Psychosocial: Anxiety Review of Systems Constitutional: see HPI, malaise, weakness, other (confusion) EENTM: no symptoms reported Respiratory: dyspnea on exertion Cardiovascular: no symptoms reported Gastrointestinal: no symptoms reported Genitourinary: no symptoms reported Musculoskeletal: back pain, joint pain Skin: no symptoms reported Psychiatric/Neurological: Anxiety, Other (confusion) Physical Exam Exam Vital Signs Vital Signs Date Time Temp Pulse Resp B/P (MAP) Pulse Ox O2 Delivery O2 Flow Rate FiO2 07/15/19 05:10 36.4 69 20 155/90 (111) 96 Nasal Cannula 4.00 Capillary Refill : General Appearance: No Apparent Distress, WD/WN, Chronically ill, Obese HEENT: PERRL/EOMI, Normal ENT Inspection, Pharynx Normal, Moist Mucous Membranes Neck: Full Range of Motion, Normal Inspection, Non Tender, Supple Respiratory: Chest Non Tender, Lungs Clear, Normal Breath Sounds, No Accessory Muscle Use, No Respiratory Distress Cardiovascular: Regular Rate, Rhythm, No Edema, No Gallop, No JVD, No Murmur Gastrointestinal: Normal Bowel Sounds, No Organomegaly, No Pulsatile Mass, Non Tender, Soft Back: Normal Inspection, No CVA Tenderness, No Vertebral Tenderness Extremity: Normal Capillary Refill, Normal Inspection, Normal Range of Motion, Non Tender, No Calf Tenderness, No Pedal Edema Neurologic/Psychiatric: Alert, Oriented x3, No Motor/Sensory Deficits, Normal Mood/Affect, commercial manager II-XII Norm as Tested, Disoriented (subtle), Motor Weakness (generalized all extremities) Skin: Normal Color, Warm/Dry Lymphatic: No Adenopathy Results Results/Procedures Labs Laboratory Tests 07/15/19 04:35 Patient resulted labs reviewed. Assessment/Plan Assessment and Plan Assess & Plan/Chief Complaint Assessment: CO2 narcosis acute on chronic resulting in hallucinations and delusions now resolved after antipsychotic regimen now off meds and doing much better Severe untreated sleep apnea with noncompliance with CPAP Hypertension Hyperlipidemia Arthritis Plan: Dr. Briscoe consultation is appreciated Vent mask option? Check labs Monitor closely (1) CO2 narcosis Status: Acute (2) Confusion Status: Acute (3) Delusions Status: Acute (4) Hypertension Status: Chronic Qualifiers: Hypertension type: essential hypertension Qualified Codes: I10 - Essential (primary) hypertension (5) History of ileus Status: Resolved Resolution Date/Time: 07/11/19 @ 10:44 (6) Hyperlipidemia Status: Chronic Qualifiers: Hyperlipidemia type: mixed hyperlipidemia Qualified Codes: E78.2 - Mixed hyperlipidemia (7) History of right hip replacement Status: Chronic (8) Hypokalemia (9) Leukopenia Status: Acute Qualifiers: Leukopenia type: unspecified Qualified Codes: D72.819 - Decreased white blood cell count, unspecified (10) Anemia Status: Acute Qualifiers: Anemia type: unspecified type Qualified Codes: D64.9 - Anemia, unspecified (11) DAYANA (obstructive sleep apnea) Status: Chronic (12) Obesity hypoventilation syndrome Status: Chronic (13) Obesity (BMI 30-39.9) Status: Chronic Post Admission Physician Asses Date seen by provider: Jul 15, 2019 Time seen by provider: 09:00 Admisison Dx: (1) CO2 narcosis Status: Acute (2) Hypokalemia (3) Anemia Status: Acute (4) Confusion Status: Acute (5) Delusions Status: Acute (6) Hyperlipidemia Status: Chronic (7) Leukopenia Status: Acute (8) Hypertension Status: Chronic (9) DAYANA (obstructive sleep apnea) Status: Chronic (10) Obesity hypoventilation syndrome Status: Chronic (11) Obesity (BMI 30-39.9) Status: Chronic (12) History of ileus Status: Resolved (13) History of right hip replacement Status: Chronic The preadmission screen agrees with the post admission assessment that the patient is a good candidate for inpatient rehabilitation. The patient will have a comprehensive program of inpatient rehabilitation with a goal of maximizing level of functional independence prior to discharge home with family. The patient will have PT/OT ninety minutes per day, each discipline, five days a week for gait, strengthening, conditioning, balance, ADLs, any patient/family/caregiver training as necessary. Speech therapy to do cognitive assessment and treat as indicated. Rehabilitation nursing to assist with bowel, bladder, skin, wound care, medication administration, pain management. Candy Waffle Assembler to assist with discharge planning, community reentry. SCD's for DVT prophylaxis. He appears to be well motivated to participate in three hours of therapy a day. He should be able to tolerate three hours of therapy a day from a medical standpoint. He should benefit from the three hours of therapy a day. He has a reasonable discharge plan, reasonable discharge rehabilitation goals and a supportive family. He has various comorbidities that need to be closely monitored with medications and treatments adjusted on a daily basis as needed. These include: see list Barriers to discharge for this patient who had been independent prior to this are for him to be modified independent to supervision for ADLs and mobility skills prior to discharge home with family, so as to lessen the burden of the caregivers. Risks for this patient include: 1. Fall 2. Fracture 3. DVT 4. Pulmonary embolism 5. Wound infection 6. Skin breakdown 7. Contractures 8. Poorly controlled pain 9. Urinary retention 10. UTI 11. Respiratory infection 12. Aspiration Estimated Length of Stay: 7 days Prognosis: Rehab prognosis appears good for goal of discharge home with family modified independent to supervision for ADLs and mobility skills. LEESA CIFUENTES DO Jul 15, 2019 10:10
[2019-07-15] MEDS ORDERED: CYAN500T62 PO (10:29)
[2019-07-15] MEDS ORDERED: ZINC50TA51 PO (10:29)
--- NOTE | 2019-07-15 11:00 | NUR ---
Met with patient's brother/DPOA, Denis Cha, and Denis's , Mell Cha per their request. Denis and Mell report that prior to hospitalization, patient was living at home with his , Janeen, in a single story home with approximately 5 entry steps. They report the patient was using a walker and cane since his hip surgery on May 04, 2019 in [place], [place] by Dr. Bruno. 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 They report that patient's brother, Otis Cha, also shares DPOA. They are concerned with the patient's finances, his ability to be able to return to work, and the possible need to apply for disability/[place] Medicaid. They report the patient's daughter, Maria G Mcarthur, lives in [place] and should be notified regarding patient's finances. They report that the patient's has "special needs" and has never worked outside of the home and has never helped to manage any finances with the patient. They report the patient's primary provider is Dali Aguirre NP at the [facility] in [place], [place] and patient's preferred pharmacy is [facility] in [place], [place]. They report some concern with the patient returning home with his spouse at discharge. Explained the weekly team conference to Sunni and they verbalize understanding. Explained that since the patient just admitted yesterday, that the team would discuss his progress during the team meeting on 07/22/19. Agreed to meet with the patient, Sunni at 1400 following the team meeting on 07/22/19 to discuss the patient's progress. Sunni verbalized understanding. Denis Semaj (brother/DPOA) [phone] Mell Semaj (KIMMIE) [phone] Otis Cha (brother/DPOA) [phone] Maria G Mcarthur (daughter) [phone]
--- NOTE | 2019-07-15 13:32 | Physical Therapy Daily Note ---
PT Daily Note-Current Subjective Patient in recliner pre tx, agrees to PT, has unrated pain in both shoulders. Appearance Patient in recliner post tx with nurse call, phone, tray, all needs met, chair alarm on. Mental Status Patient Orientation: Person Attachments: Oxygen Transfers Therapy Code Descriptions/Definitions Functional [place] Measure: 0=Not Assessed/NA 4=Minimal Assistance 1=Total Assistance 5=Supervision or Setup 2=Maximal Assistance 6=Modified [place] 3=Moderate Assistance 7=Complete [place] Therapy Quality Codes: 6 Independent with activity with or without an assistive device 5 Patient requires set up or clean up by helper. Patient completes activity by themselves 4 Supervision or touching assist (CGA). [place] provide cues , steadying assist 3 The helper provides less than half the effort to complete the activity 2 The helper provides more than half the effort to complete the activity 1 Dependent. The helper does all the effort to complete an activity 7 Patient refused to complete or attempt activity 9 The patient did not perform the activity before the current illness or injury 88 Not attempted due to Medical conditions or safety concerns Transfers (B, C, W/C) (FIM): 5 Sit to/from Stand: 5 Bed to/from Chair: 5 Gait Training Gait (FIM): 5 Distance: 200', 150' Gait Level of Assist: 5 Gait Persons Needed: 1 Gait Assistive Device: FWW slow but steady ambulation, cues for direction Exercises Standing: Hip Abduction, Hamstring curls, Heel/toe raises, Mini squats Standing Reps: 15 LAQ alternating for 5 min with 2# ankle weights Treatments LE exercise, ambulation, transfers Assessment Current Status: Fair Progress improved endurance PT Short Term Goals Short Term Goals Time Frame: Jul 22, 2019 Transfers (B,C,W/C) (FIM): 5 Gait (FIM): 5 Gait Distance Comment: 200' Gait Level of Assist: 5 Gait Assistive Device: FWW PT [facility] Goals [facility] Goals PT [facility] Goals Time Frame: Aug 05, 2019 Transfers (B,C,W/C) (FIM): 6 Sit to Lying (QC): 6 Lying-Sitting on Side/Bed(QC): 6 Sit to Stand (QC): 6 Rollin Roll Left to Right (QC): 6 Chair/Zsj-dh-Uehdo Xfer(QC): 6 Car Transfer (QC): 6 Gait (FIM): 6 Distance: 300' Walk 10 feet (QC): 6 Walk 10ft-Uneven Surface(QC): 6 Walk 50ft with 2 Turns (QC): 6 Walk 150 ft (QC): 6 Gait Level of Assist: 6 Gait Assistive Device: FWW Stairs (FIM): 2 # of Steps: 4 1 Step (curb) (QC): 4 4 Steps (QC): 4 Stairs Level Of Assist: 5 PT Plan Problem List Problem List: Activity Tolerance, Functional Strength, Safety, Balance, Gait, Transfer, Bed Mobility Treatment/Plan Treatment Plan: Continue Plan of Care Treatment Plan: Bed Mobility, Education, Functional Activity Shayy, Functional Strength, Group Therapy, Gait, Safety, Therapeutic Exercise, Transfers Treatment Duration: Aug 05, 2019 Frequency: At least 5 of 7 days/Wk (IRF) Estimated Hrs Per Day: 1.5 hours per day Patient and/or Family Agrees t: Yes Safety Risks/Education Patient Education: Gait Training, Transfer Techniques, Correct Positioning, Safety Issues Teaching Recipient: Patient Teaching Methods: Demonstration, Discussion Response to Teaching: Reinforcement Needed Time/GCodes Time In: 1300 Time Out: 1330 Total Billed Treatment Time: 30 Total Billed Treatment 1 visit GT 15' EX 15' ROBERTA TELLES PT Jul 15, 2019 13:31
--- NOTE | 2019-07-15 13:46 | NUR ---
RD ASSESSMENT Pt was awake and pleasant during nutrition assessment. Pt states current appetite is good and had been the same for the past several weeks. Pt states no current issues with n/v at this time. Pt states that there was some issues with constipation, but that he had a BM this morning. Weight hx was difficult to ascertain from the patient. At first, pt said they had gained some weight, but could not state amount or timeframe. During the conversation, pt also stated losing approximately 30# since "last time I was here." Unable to determine recent wt hx, per chart review. VISUAL EXAM: Pt appears to be well-nourished with a BMI of 42.3 Est. kcal needs: 0016-8326 kcal (15-20 kcal/kg) Est. Pro needs: 98.4-124 g Pro (0.8-1.0 g Pro/kg) PES Statement: Food- and nutrition-related knowledge deficit related to lack of information regarding weight loss as evidenced by pt interview. INTERVENTION: Continue with current diet order of regular diet. Discussed briefly with pt about portion control and physical activity. Recommended 30 min of physical activity after he had been cleared by his physician. Will follow-up prior to discharge with more information regarding weight loss and handouts. MONITOR/EVALUATE: Weight Status PO Intake Lab values
--- NOTE | 2019-07-15 13:55 | Pulmonary Consultation ---
History of Present Illness History of Present Illness Date of Consultation 07/15/19 13:51 Time Seen by Provider: 10:41 Date of Admission Allergies and Home Medications Allergies Coded Allergies: azithromycin (Verified Allergy, Unknown, 07/08/19) Home Medications Acetaminophen 500 Mg Tablet, 1,000 MG PO Q4H PRN for PAIN-MILD, (Reported) Amitriptyline HCl 25 Mg Tablet, 50 MG PO HS Prescribed by: RAMOS CIFUENTES on 07/22/192027 Amlodipine Besylate 10 Mg Tablet, 10 MG PO DAILY, (Reported) Ascorbate Calcium 500 Mg Tablet, 500 MG PO DAILY, (Reported) Aspirin 325 Mg Tablet, 162.5 MG PO DAILY, (Reported) TAKES 1/2 (325MG) TABLET Cyanocobalamin (Vitamin B-12) 500 Mcg Tablet, 500 MCG PO DAILY, (Reported) Enoxaparin Sodium 40 Mg/0.4 Ml Syringe, 40 MG SC Q12HR Prescribed by: RAMOS CIFUENTES on 07/22/192027 Fluticasone Propionate 16 Gm [place].susp, 0 SPRAY NS DAILY Prescribed by: RAMOS CIFUENTES on 07/22/192027 Lisinopril 40 Mg Tablet, 80 MG PO DAILY, (Reported) TAKES 2 (40MG) TABLETS Lovastatin 40 Mg Tablet, 80 MG PO HS, (Reported) TAKES 2 (40MG) TABLETS Magnesium Oxide 400 Mg Tablet, 400 MG PO DAILY, (Reported) Metoprolol Tartrate 25 Mg Tablet, 25 MG PO BID, (Reported) Multivit-Min/FA/Lycopen/Lutein 1 Each Tablet, 1 TAB PO DAILY, (Reported) Niacin (Inositol Niacinate) 500 Mg Capsule, 1,000 MG PO HS, (Reported) TAKES 2 (500MG) CAPSULES Nitroglycerin 0.4 Mg Tab.subl, 0.4 MG SL UD PRN for CHEST PAIN, (Reported) Potassium Chloride 20 Meq Tab.er.prt, 20 MEQ PO DAILY, (Reported) Risperidone 0.25 Mg Tablet, 0.5 MG PO TID Prescribed by: RAMOS CIFUENTES on 07/22/192027 Sennosides/Docusate Sodium 1 Each Tablet, 2 EA PO BID Prescribed by: RAMOS CIFUENTES on 07/22/192027 Triamterene/Hydrochlorothiazid 1 Each Tablet, 1 TAB PO DAILY, (Reported) Zinc Amino Acid Chelate 50 Mg Tablet, 50 MG PO DAILY, (Reported) Past Cxrllkc-Ujkqrm-Bwwapk Hx Past Med/Social Hx: Reviewed Nursing Past Med/Soc Hx, Reviewed and Corrections made Patient Social History Alcohol Use: Denies Use Recreational Drug Use: No Smoking Status: Never a Smoker Recent Foreign Travel: No Contact w/Someone Who Travel: No Recent Infectious Disease Expo: No Recent Hopitalizations: Yes Immunizations Up To Date Tetanus Booster (TDap): Unknown Seasonal Allergies Seasonal Allergies: Yes Past Medical History Surgeries: Yes Bowel Surgery, Cardiac, Orthopedic (07/[address] Right hip) Respiratory: Yes (severe sleep apnea. newly dx co2 narcosis) Sleep Apnea Currently Using CPAP: No (ORDERED BUT DOES NOT USE) Currently Using BIPAP: Yes Cardiac: Yes (jhdju-onanbdznp-aobjv syndrome) Chronic Edema/Swelling, High Cholesterol, Hypertension Neurological: Yes (recent AMS due to Co2 retention requiring inpatient stay at [facility] ) Genitourinary: No Gastrointestinal: Yes Diverticulosis Musculoskeletal: Yes Arthritis Endocrine: Yes ("Pre-diabetes") HEENT: No Cancer: Yes Skin Did You Recieve Any Treatments: Yes What Type of Treatment Did You: Surgical Intervention Psychosocial: Yes Anxiety Integumentary: No Sepsis Event Evaluation Height, Weight, BMI Height: '" Weight: 276lbs. 0.5oz. 125.166352li; 42.83 BMI Method: Exam Exam Vital Signs Date Time Temp Pulse Resp B/P (MAP) Pulse Ox O2 Delivery O2 Flow Rate FiO2 07/15/19 05:10 36.4 69 20 155/90 (111) 96 Nasal Cannula 4.00 07/14/19 22:31 Nasal Cannula 2.00 07/14/19 21:57 Nasal Cannula 2.00 07/14/19 17:43 36.8 64 20 151/88 (109) 92 Nasal Cannula 2.00 07/14/19 17:30 36.8 64 20 151/88 92 Nasal Cannula 2.00 07/14/19 17:15 92 Nasal Cannula 2.00 I & O 07/15/19 07:00 Intake Total 780 ml Output Total 3 ml Balance 777 ml Height & Weight Height: '" Weight: 276lbs. 0.5oz. 125.853359wo; 42.83 BMI Method: General Appearance: No Apparent Distress, WD/WN, Chronically ill, Obese HEENT: PERRL/EOMI, Normal ENT Inspection, Pharynx Normal, Moist Mucous Membranes Neck: Full Range of Motion, Normal Inspection, Non Tender, Supple Respiratory: Chest Non Tender, Lungs Clear, Normal Breath Sounds, No Accessory Muscle Use, No Respiratory Distress Cardiovascular: Regular Rate, Rhythm, No Edema, No Gallop, No JVD, No Murmur Extremity: Normal Capillary Refill, Normal Inspection, Normal Range of Motion, Non Tender, No Calf Tenderness, No Pedal Edema Neurologic/Psychiatric: Alert, Oriented x3, No Motor/Sensory Deficits, Normal 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 Will use hospital vent to mask for now QHS. -Check ABG Anemia -Monitor KIM EATON DO Jul 15, 2019 13:55
--- NOTE | 2019-07-15 14:00 | Occupational Therapy Eval ---
OT Evaluation-General/PLF Medical Diagnosis Admission Date Jul 14, 2019 at 17:00 Medical Diagnosis: Impaired mobility, strength and endurance Onset Date: Jul 14, 2019 Therapy Diagnosis Therapy Diagnosis: impaired ADL skills Height/Weight Weight (Pounds): 276 Weight (Ounces): 0.5 Precautions Precautions/Isolations: Fall Prevention, Standard Precautions Safety Interventions: Bed Exit Alarm, Reorient-PRN Referral Physician: Leesa Mendez DO Medical History Pertinent Medical History: DM, HTN, OA Additional Medical History hyperlipidemia, chronic edema, sigmoid diverticulosis, prediabetes, anxiety, sleep apnea, right SHANTHI Social History Home: Single Level Current Living Status: Spouse Entry Into Home: Stairs With Railing Steps Into Home: 5 ADL-Prior Level of Function Therapy Code Descriptions/Definitions Functional [place] Measure: 0=Not Assessed/NA 4=Minimal Assistance 1=Total Assistance 5=Supervision or Setup 2=Maximal Assistance 6=Modified [place] 3=Moderate Assistance 7=Complete [place] Therapy Quality Codes: 6 Independent with activity with or without an assistive device 5 Patient requires set up or clean up by helper. Patient completes activity by themselves 4 Supervision or touching assist (CGA). Martin provide cues , steadying assist 3 The helper provides less than half the effort to complete the activity 2 The helper provides more than half the effort to complete the activity 1 Dependent. The helper does all the effort to complete an activity 7 Patient refused to complete or attempt activity 9 The patient did not perform the activity before the current illness or injury 88 Not attempted due to Medical conditions or safety concerns Functional Abilities and Goals: Independent: Patient completed the activities by him/herself, with or without an assistive device, with no assistance from a helper. Needed Some Help: Patient needed partial assistance from another person to complete activities. Dependent: A helper completed the activities for the patient. Unknown: Not Applicable: ADL PLOF Comments Pt reports being independent with self care. States he was working prior to his hip replacement. OT Current Status Subjective Pt in bed, agrees to therapy. States he has no pain. Pt talks constantly throughout treatment, but topics are often unrelated and conversation is difficult to follow. Pt easily distracted and requires skilled cues to attend to tasks. Mental Status/Objective Patient Orientation: Person, Place Attachments: Oxygen Current Glasses/Contacts: Yes (reading) Hearing Aids: No Hand Dominance: Right Upper Extremity ROM mildly decreased shoulder ROM, remainder grossly functional Upper Extremity Coordination fair ADL-Treatment ADL-Current Pt supine to sit with SBA. Declined shower today, but agrees to sponge bath. Pt doffed shirt without assist. Upper body bathing completed with SBA. Pt doffed shorts with SBA. Able to wash bilateral upper legs, [place] area, and buttocks. Min assist to wash lower legs and feet. Don pullover shirt with minimal assistance to pull down in back. Min assist to thread LE into Depends and shorts, but pt then able to pull up and complete pant hike with SBA. Pt states he uses a sock aid at home. Able to don socks with min assist using sock aid. Gait to restroom with FWW. Pt stood at toilet to urinate with CGA for balance. Pt able to manage clothing. Pt easily distracted, requires increased time to complete ADL tasks. Pt sitting in chair with needs met and chair alarm on after session. Bathing (FIM): 4 Shower/Bathe Self (QC): 3 Upper Body Dressing (FIM): 4 Upper Body Dressing (QC): 3 Lower Body Dressing (FIM): 4 Lower Body Dressing (QC): 3 On/Off Footwear (QC): 3 Toileting (FIM): 4 Toileting Hygiene (QC): 4 Toilet/Commode Transfer (FIM): 4 (CGA) Toilet Transfer (QC): 4 (CGA) Education OT Patient Education: Rehab process Teaching Recipient: Patient Teaching Methods: Discussion Response to Teaching: Verbalize Understanding OT Short Term Goals Short Term Goals Time Frame: Jul 22, 2019 Upper Body Dressing(FIM): 5 Lower Body Dressing(FIM): 5 Toileting(FIM): 5 Toilet/Commode Transfer(FIM): 5 Additional Short Term Goals: 1-Demonstrate ADL Tasks, 2-Verbalize Understanding, 3-ImproveStrength/Shayy 1=Demonstrate adherence to instructed precautions during ADL tasks. 2=Patient will verbalize/demonstrate understanding of assistive devices/modifications for ADL. 3=Patient will improve strength/tolerance for activity to enable patient to perform ADL's. OT Fci Goals Fci Goals Time Frame: Aug 05, 2019 Eating (FIM): 6 Eating (QC): 6 Groomin Oral Hygiene (QC): 6 Bathing(FIM): 5 Shower/Bathe Self (QC): 5 Upper Body Dressing(FIM): 6 Upper Body Dressing (QC): 6 Lower Body Dressing(FIM): 6 Lower Body Dressing (QC): 6 On/Off Footwear (QC): 6 Toileting(FIM): 6 Toileting Hygiene (QC): 6 Toilet/Commode Transfer(FIM): 6 Toilet/Commode Transfer (QC): 6 Shower Transfer(FIM): 5 Additional Goals: 1-Demonstrate ADL Tasks, 2-Verbalize Understanding, 3-ImproveStrength/Shayy 1=Demonstrate adherence to instructed precautions during ADL tasks. 2=Patient will verbalize/demonstrate understanding of assistive devices/modifications for ADL. 3=Patient will improve strength/tolerance for activity to enable patient to perform ADL's. Goals established to promote increased functional independence and allow safe discharge plan. OT Education/Plan Problem List/Assessment Assessment: Decreased Activ Tolerance, Decreased UE Strength, Dependent Transfers, Impaired I ADL's, Impaired Self-Care Skills Pt to benefit from skilled OT intervention for ADL training, transfers, strengthening, and safety education to increase level of independence and allow safe discharge plan. Discharge Recommendations Plan/Recommendations: Continue POC Treatment Plan/Plan of Care Treatment,Training & Education: Yes Patient would benefit from OT for education, treatment and training to promote independence in ADL's, mobility, safety and/or upper extremity function for ADL's. Plan of Care: ADL Retraining, Functional Mobility, Group Exercise/Act as Ind, UE Funct Exercise/Act Treatment Duration: Aug 05, 2019 Frequency: At least 5 of 7 days/Wk (IRF) Estimated Hrs Per Day: 1.5 hours per day Rehab Potential: Fair Time/GCodes Start Time: 10:45 Stop Time: 12:00 Total Time Billed (hr/min): 75 Billed Treatment Time 1 visit, EVM(15minutes), ADLx4(60minutes) CHARITO JOE OT Jul 15, 2019 14:00
--- NOTE | 2019-07-15 14:57 | Occupational Ther Daily Note ---
OT Current Status-Daily Note Subjective Pt sitting in chair, agrees to treatment. Mental Status/Objective Therapy Code Descriptions/Definitions Functional [place] Measure: 0=Not Assessed/NA 4=Minimal Assistance 1=Total Assistance 5=Supervision or Setup 2=Maximal Assistance 6=Modified [place] 3=Moderate Assistance 7=Complete [place] ADL-Treatment Pt sit to stand from chair with SBA. Gait to restroom with FWW, cues for safety. Stood at toilet with SBA to urinate. Pt stood at sink to complete grooming tasks. Pt washed hands, brushed teeth, and combed hair with SBA. Pt required skilled cues for safety when ambulating back to chair. Pt sitting in chair with needs met and chair alarm in place after session. Therapy Code Descriptions/Definitions Functional [place] Measure: 0=Not Assessed/NA 4=Minimal Assistance 1=Total Assistance 5=Supervision or Setup 2=Maximal Assistance 6=Modified [place] 3=Moderate Assistance 7=Complete [place] Therapy Quality Codes: 6 Independent with activity with or without an assistive device 5 Patient requires set up or clean up by helper. Patient completes activity by themselves 4 Supervision or touching assist (CGA). Carrie provide cues , steadying assist 3 The helper provides less than half the effort to complete the activity 2 The helper provides more than half the effort to complete the activity 1 Dependent. The helper does all the effort to complete an activity 7 Patient refused to complete or attempt activity 9 The patient did not perform the activity before the current illness or injury 88 Not attempted due to Medical conditions or safety concerns Grooming (FIM): 5 Oral Hygiene (QC): 4 Toileting (FIM): 5 OT Short Term Goals Short Term Goals Time Frame: Jul 22, 2019 Upper Body Dressing(FIM): 5 Lower Body Dressing(FIM): 5 Toileting(FIM): 5 Toilet/Commode Transfer(FIM): 5 Additional Short Term Goals: 1-Demonstrate ADL Tasks, 2-Verbalize Understanding, 3-ImproveStrength/Shayy 1=Demonstrate adherence to instructed precautions during ADL tasks. 2=Patient will verbalize/demonstrate understanding of assistive devices/modifications for ADL. 3=Patient will improve strength/tolerance for activity to enable patient to perform ADL's. OT Tunnel Kiln Operator Goals Tunnel Kiln Operator Goals Time Frame: Aug 05, 2019 Eating (FIM): 6 Eating (QC): 6 Groomin Oral Hygiene (QC): 6 Bathing(FIM): 5 Shower/Bathe Self (QC): 5 Upper Body Dressing(FIM): 6 Upper Body Dressing (QC): 6 Lower Body Dressing(FIM): 6 Lower Body Dressing (QC): 6 On/Off Footwear (QC): 6 Toileting(FIM): 6 Toileting Hygiene (QC): 6 Toilet/Commode Transfer(FIM): 6 Toilet/Commode Transfer (QC): 6 Shower Transfer(FIM): 5 Additional Goals: 1-Demonstrate ADL Tasks, 2-Verbalize Understanding, 3- ImproveStrength/Shayy 1=Demonstrate adherence to instructed precautions during ADL tasks. 2=Patient will verbalize/demonstrate understanding of assistive devices/modifications for ADL. 3=Patient will improve strength/tolerance for activity to enable patient to perform ADL's. OT Education/Plan Discharge Recommendations Plan/Recommendations: Continue POC Treatment Plan/Plan of Care Patient would benefit from OT for education, treatment and training to promote independence in ADL's, mobility, safety and/or upper extremity function for ADL's. Plan of Care: ADL Retraining, Functional Mobility, Group Exercise/Act as Ind, UE Funct Exercise/Act Treatment Duration: Aug 05, 2019 Frequency: At least 5 of 7 days/Wk (IRF) Estimated Hrs Per Day: 1.5 hours per day Rehab Potential: Fair Time/GCodes Start Time: 14:30 Stop Time: 14:45 Total Time Billed (hr/min): 15 Billed Treatment Time 1 visit, ADL(15minutes) CHARITO JOE OT Jul 15, 2019 14:57
--- NOTE | 2019-07-15 17:01 | NUR ---
Met with patient to do initial assessment and discuss weekly team conference. Patient appears distracted during conversation and requires increased time to process answers to questions. Patient confirms he was living home with his in [place] prior to hospitalization. He recalls his hip surgery with Dr. Bruno in [place], [place], but is unsure of the date of surgery. He also recalls hospitalization in [place] (dates unknown). He does report working for the [employer]. He perseverates on needing to get his sister, Merly, brother, Otis, and brother, Denis, to complete paperwork for DPOA for finances. From previous conversation with patient's brother, Denis, patient has DPOA for medical decisions: Denis Cha and Otis Cha. This worker will talk with patient's brother, Denis, regarding financial DPOA and paperwork. Will continue to monitor functional progress and cognition/memory while patient is on the rehab unit. Will recheck progress next at next Saturday's Weekly Team Conference.
[2019-07-15] MEDS: KCL 20 MEQ TAB (K-DUR) PO SCH (17:14)
[2019-07-15] MEDS: NIACIN 500 MG TABLET PO SCH (17:14)
[2019-07-15 17:27] VITALS: BP 160/93
--- NOTE | 2019-07-15 18:30 | Diagnostic Imaging Report ---
INDICATION: Shortness of breath. COMPARISON: 07/09/2019 FINDINGS: Frontal and lateral views of the chest demonstrate unchanged low lung volumes. Portions of the visualized lungs are clear. There is elevation of both hemidiaphragms. The heart is slightly prominent without pulmonary edema. There is no pneumothorax. IMPRESSION: Unchanged aeration of the lungs. Dictated by: Dictated on workstation # [id number]
[2019-07-15] MEDS: MELATONIN 3 MG TABLET PO PRN (19:54)
[2019-07-16 05:56] VITALS: BP 143/84
[2019-07-16] MEDS: MULTIVIT W/MINERALS TAB (THERAGRAN M) PO SCH (06:27)
[2019-07-16] MEDS: VENlafaxine XR 75 MG (EFFEXOR XR) CAP PO SCH (06:28)
[2019-07-16] MEDS: ASCORBIC ACID (VIT C) 500 MG TABLET PO SCH (06:28)
[2019-07-16] MEDS: KCL 20 MEQ TAB (K-DUR) PO SCH ×2 (06:28→17:30)
[2019-07-16] MEDS: TRIAMTERENE/HCTZ 75-50 (MAXZIDE,DYAZIDE) TABLET PO SCH (06:28)
[2019-07-16] MEDS: LACTULOSE SYRUP 10GM/15ML (ENULOSE) 30ML UDC PO SCH ×2 (07:57→19:48)
[2019-07-16] MEDS: POLYETHYLENE GLYCOL 17 GM (MIRALAX) PACK PO SCH ×2 (07:58→19:49)
[2019-07-16] MEDS: SENNA W/DOCUSATE (SENOKOT S) TABLET PO SCH ×2 (07:58→19:55)
[2019-07-16] MEDS: ENOXAPARIN 40 MG/0.4 ML (LOVENOX) SYR SC SCH ×2 (08:13→19:57)
[2019-07-16] MEDS: amLODIPine 5 MG (NORVASC) TAB PO SCH (08:14)
[2019-07-16] MEDS: ASPIRIN 325 MG (5 GR) TABLET PO SCH (08:14)
[2019-07-16] MEDS: lisINopril 40 MG (PRINIVIL) TABLET PO SCH (08:14)
[2019-07-16] MEDS: meTOprolol TARTRATE 25 MG (LOPRESSOR) TABLET PO SCH ×2 (08:14→19:56)
[2019-07-16] MEDS: MAGNESIUM OXIDE (MAG-OX)400 MG TAB PO SCH (08:14)
--- NOTE | 2019-07-16 10:28 | Physical Therapy Daily Note ---
PT Daily Note-Current Subjective Patient in recliner pre tx, agrees to PT, has no complaints of pain. Patient is confused and perseverating on micromanaging his daily schedule. Appearance Patient in recliner post tx with nurse call, phone, tray, chair alarm on. Mental Status Patient Orientation: Person, Confused, Place Attachments: Oxygen 3L of O2 nasal canula Transfers Therapy Code Descriptions/Definitions Functional [place] Measure: 0=Not Assessed/NA 4=Minimal Assistance 1=Total Assistance 5=Supervision or Setup 2=Maximal Assistance 6=Modified [place] 3=Moderate Assistance 7=Complete [place] Therapy Quality Codes: 6 Independent with activity with or without an assistive device 5 Patient requires set up or clean up by helper. Patient completes activity by themselves 4 Supervision or touching assist (CGA). [place] provide cues , steadying assist 3 The helper provides less than half the effort to complete the activity 2 The helper provides more than half the effort to complete the activity 1 Dependent. The helper does all the effort to complete an activity 7 Patient refused to complete or attempt activity 9 The patient did not perform the activity before the current illness or injury 88 Not attempted due to Medical conditions or safety concerns Transfers (B, C, W/C) (FIM): 5 Sit to/from Stand: 5 Bed to/from Chair: 5 Gait Training Gait (FIM): 5 Distance: 200'x2 Gait Level of Assist: 5 Gait Persons Needed: 1 Gait Assistive Device: FWW slow but steady ambulation, patient needs cues for direction, gets distracted easily Exercises Standing: Hip Abduction, Hamstring curls, Heel/toe raises, Marching, Mini squats Standing Reps: 15 LAQ alternating for 5 min NuStep Minutes: 15 NuStep Workload: 4 Treatments LE exercise, transfers, ambulation Assessment Current Status: Fair Progress supervision for mobility, patient is confused, rambles and mumbles with speech, easily distracted PT Short Term Goals Short Term Goals Time Frame: Jul 22, 2019 Gait (FIM): 5 Gait Distance Comment: 200' Gait Level of Assist: 5 Gait Assistive Device: FWW PT Residential Goals Radiology Physician Goals PT Radiology Physician Goals Time Frame: Aug 05, 2019 Transfers (B,C,W/C) (FIM): 6 Sit to Lying (QC): 6 Lying-Sitting on Side/Bed(QC): 6 Sit to Stand (QC): 6 Rollin Roll Left to Right (QC): 6 Chair/Wbi-hz-Ggyhz Xfer(QC): 6 Car Transfer (QC): 6 Gait (FIM): 6 Distance: 300' Walk 10 feet (QC): 6 Walk 10ft-Uneven Surface(QC): 6 Walk 50ft with 2 Turns (QC): 6 Walk 150 ft (QC): 6 Gait Level of Assist: 6 Gait Assistive Device: FWW Stairs (FIM): 2 # of Steps: 4 1 Step (curb) (QC): 4 4 Steps (QC): 4 Stairs Level Of Assist: 5 PT Plan Problem List Problem List: Activity Tolerance, Functional Strength, Safety, Balance, Gait, Transfer, Bed Mobility, ROM Treatment/Plan Treatment Plan: Continue Plan of Care Treatment Plan: Bed Mobility, Education, Functional Activity Shayy, Functional Strength, Group Therapy, Gait, Safety, Therapeutic Exercise, Transfers Treatment Duration: Aug 05, 2019 Frequency: At least 5 of 7 days/Wk (IRF) Estimated Hrs Per Day: 1.5 hours per day Patient and/or Family Agrees t: Yes Safety Risks/Education Patient Education: Gait Training, Transfer Techniques, Correct Positioning, Safety Issues Teaching Recipient: Patient Teaching Methods: Demonstration, Discussion Response to Teaching: Reinforcement Needed Time/GCodes Time In: 0930 Time Out: 1030 Total Billed Treatment Time: 60 Total Billed Treatment 1 visit EX 40' GT 20' ROBERTA TELLES PT Jul 16, 2019 10:28
--- NOTE | 2019-07-16 10:44 | PM&R Progress Note ---
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 Bruno in [facility] was sent home the next day began having problems with confusion and altered mental status who then presented to [facility] ER he was placed in observation ultimately sent to [place] for neurology workup which included MRI and spinal tap which all were unrevealing of source and then he was sent home and very rapidly began having more confusion sent [place] ER workup was negative so patient was sent to the senior behavioral unit [facility] last Saturday on 07/07/19 since all the workup was negative including ABG revealing pH is 7.56 CO2 26 and O2 of 92 who I assessed the following morning finding him into respiratory insufficiency when he was still sleeping with severe snoring and apnea ABG revealed pH is 7.2/58/52 confirming my suspicion this was acute on chronic CO2 narcosis due to untreated sleep apnea. He refuses to use a see Pap sheet he has at home and all of this was confirmed with Gabby Henning. Patient was transferred to via [facility] ICU placed on aggressive BiPAP regimen by pulmonology Dr. Briscoe and he improved and was able to go back to the senior behavioral unit on Saturday to work on hallucinations and delusions. He remained stable while in [facility] Haldol was initiated and delirium cleared and he was accepted to inpatient rehabilitation yesterday to complete his treatment and recovery in order to remain independent and go home with his family. Subjective/Events-last exam Pt still repeating himself. Talks a lot. BiPAP last night was taken off multiple times, but he is understanding the importance. Social work consult for finances since he may not be able to go back to work. Denies any pain. Overall improving immensely in the clearance of the CO2 narcosis that was acute on chronic. Bowels are moving. Checked meds and labs Conferred with RN Reviewed therapy notes Review of Systems General: Fatigue Neurological: Confusion Objective Exam Vital Signs Vital Signs Date Time Temp Pulse Resp B/P (MAP) Pulse Ox O2 Delivery O2 Flow Rate FiO2 07/16/19 17:02 36.2 76 16 154/90 (111) 91 07/16/19 09:00 Nasal Cannula 3.00 Capillary Refill : General Appearance: No Apparent Distress, WD/WN, Chronically ill, Obese HEENT: PERRL/EOMI, Normal ENT Inspection, Pharynx Normal, Moist Mucous Membranes Neck: Full Range of Motion, Normal Inspection, Non Tender, Supple Respiratory: Chest Non Tender, Lungs Clear, Normal Breath Sounds, No Accessory Muscle Use, No Respiratory Distress Cardiovascular: Regular Rate, Rhythm, No Edema, No Gallop, No JVD, No Murmur Gastrointestinal: Normal Bowel Sounds, No Organomegaly, No Pulsatile Mass, Non Tender, Soft Back: Normal Inspection, No CVA Tenderness, No Vertebral Tenderness Extremity: Normal Capillary Refill, Normal Inspection, Normal Range of Motion, Non Tender, No Calf Tenderness, No Pedal Edema Neurologic/Psychiatric: Alert, Oriented x3, No Motor/Sensory Deficits, Normal Mood/Affect, rn acls II-XII Norm as Tested, Disoriented (subtle), Motor Weakness (generalized all extremities) Skin: Normal Color, Warm/Dry Lymphatic: No Adenopathy Results/Procedures Lab Patient resulted labs reviewed. FIM Transfers Therapy Code Descriptions/Definitions Functional [place] Measure: 0=Not Assessed/NA 4=Minimal Assistance 1=Total Assistance 5=Supervision or Setup 2=Maximal Assistance 6=Modified [place] 3=Moderate Assistance 7=Complete [place] Therapy Quality Codes: 6 Independent with activity with or without an assistive device 5 Patient requires set up or clean up by helper. Patient completes activity by themselves 4 Supervision or touching assist (CGA). [place] provide cues , steadying assist 3 The helper provides less than half the effort to complete the activity 2 The helper provides more than half the effort to complete the activity 1 Dependent. The helper does all the effort to complete an activity 7 Patient refused to complete or attempt activity 9 The patient did not perform the activity before the current illness or injury 88 Not attempted due to Medical conditions or safety concerns Transfers (B, C, W/C) (FIM): 5 Scootin Rollin Roll Left to Right (QC): 4 Supine to/from Sit: 5 Sit to/from Stand: 5 Sit to Lying (QC): 4 Sit to Stand (QC): 4 Chair/Hmd-iw-Zgaug Xfer(QC): 4 Bed to/from Chair: 5 Car Transfer (QC): 4 Gait Training Does the Patient Walk?: Yes Gait (FIM): 5 Distance: 200'x2 Gait Level of Assist: 5 Gait Persons Needed: 1 Gait Assistive Device: FWW Wheelchair Training Does the Pt Use a Wheelchair?: No Stair Training Stairs (FIM): 1 #of Steps: 1 1 Step (curb) (QC): 4 Level of Assist: 4 Mental Status/Objective Comprehension: 7 Expression: 7 Social Interaction: 7 Problem Solvin Memory: 7 ADL-Treatment Groomin Oral Hygiene (QC): 4 Bathin Shower/Bathe Self (QC): 3 Upper Extremity Dressin Upper Body Dressing (QC): 3 Lower Extremity Dressin Lower Body Dressing (QC): 3 On/Off Footwear (QC): 3 Toiletin Toileting Hygiene (QC): 4 Toilet/Commode Transfer: 4 (CGA) Toilet Transfer (QC): 4 (CGA) Assessment/Plan Assessment and Plan Assess & Plan/Chief Complaint Assessment: CO2 narcosis acute on chronic resulting in hallucinations and delusions now resolved after antipsychotic regimen now off meds and doing much better Severe untreated sleep apnea with noncompliance with CPAP Hypertension Hyperlipidemia Arthritis Plan: Dr. Briscoe consultation is appreciated Vent mask option? Check labs prn Monitor closely (1) CO2 narcosis Status: Acute (2) Hypokalemia (3) Anemia Status: Acute Qualifiers: Anemia type: unspecified type Qualified Codes: D64.9 - Anemia, unspecified (4) Confusion Status: Acute (5) Delusions Status: Acute (6) Hyperlipidemia Status: Chronic Qualifiers: Hyperlipidemia type: mixed hyperlipidemia Qualified Codes: E78.2 - Mixed hyperlipidemia (7) Leukopenia Status: Acute Qualifiers: Leukopenia type: unspecified Qualified Codes: D72.819 - Decreased white blood cell count, unspecified (8) Hypertension Status: Chronic Qualifiers: Hypertension type: essential hypertension Qualified Codes: I10 - Essential (primary) hypertension (9) DAYANA (obstructive sleep apnea) Status: Chronic (10) Obesity hypoventilation syndrome Status: Chronic (11) Obesity (BMI 30-39.9) Status: Chronic (12) History of ileus Status: Resolved Resolution Date/Time: 07/11/19 @ 10:44 (13) History of right hip replacement Status: Chronic RAMOS CIFUENTES DO Jul 16, 2019 10:44
--- NOTE | 2019-07-16 10:44 | Individualized Plan of Care ---
Individualized Plan of Care Rehab Nursing IPOC Order Admission Date Jul 14, 2019 at 17:00 Current Orders Orders Transfer - Bed/Room/Location (07/14/19 17:00) Admission Order(Inpt,Obs,Sdc) (07/14/19 17:35) Vital Signs: Per Unit Policy ( 08,16,00 (07/14/19 17:35) Section Supervisor-Inpt Rehab Con (07/14/19 17:35) Rehab Nursing Orders-Ipoc (07/14/19 17:35) Physical Therapy Rehab Orders (07/14/19 17:35) Occupational Therapy Rehab Ord (07/14/19 17:35) Speech Therapy Rehab Orders (07/14/19 17:35) General/Regular (07/15/19 Breakfast) Intake & Output 06,14,22 (07/14/19 17:35) Precautions (Aru) (07/14/19 17:35) Rehab-Intensity Of Therapy (07/14/19 17:35) Initiate Admission Nursing Pro .admission (07/14/19 17:35) Code/Resuscitation (07/14/19 17:35) Cbc With Automated Diff (07/15/19 06:00) Comprehensive Metabolic Panel (07/15/19 06:00) Acetaminophen Tablet (Tylenol Tablet) (07/14/19 17:45) Calcium Carbonate Chew Tablet (Antacid C (07/14/19 17:45) Docusate Sodium Capsule (Colace Capsule) (07/14/19 17:45) Loperamide Tablet (Imodium Tablet) (07/14/19 17:45) Melatonin Tablet (Melatonin Tablet) (07/14/19 17:45) Ondansetron Oral Dissolve Tab (Zofran (07/14/19 17:45) Senna S Tablet (Senokot S Tablet) (07/14/19 21:00) Polyethylene Glycol Powder Pkt (Miralax (07/14/19 21:00) Consult Pulmonology (07/14/19 17:35) Aspirin Tablet (Aspirin Tablet) (07/15/19 09:00) Lisinopril Tablet (Zestril Tablet) (07/15/19 09:00) Metoprolol Tartrate (Ir) Tab (Lopressor (07/14/19 21:00) Nitroglycerin 0.4 Mg Btl 25's (Nitrostat (07/14/19 17:45) Potassium Chloride (Tablet) (K Dur Table (07/15/19 08:00) Amlodipine Tablet (Norvasc Tablet) (07/15/19 09:00) Enoxaparin Injection (Lovenox Injection) (07/14/19 21:00) (Nf) Acetaminophen (Tylenol Extra Streng (07/14/19 17:45) (Nf) Ascorbate Calcium (Vitamin C) (07/15/19 09:00) (Nf) Lactulose (07/14/19 21:00) (Nf) Lovastatin (07/14/19 21:00) (Nf) Magnesium Oxide (Magnesium) (07/15/19 09:00) (Nf) Multivit-Min/Fa/Lycopen/Lutein (Evelia (07/15/19 09:00) (Nf) Niacin (Inositol Niacinate) (Niacin (07/14/19 21:00) (Nf) Triamterene/Hydrochlorothiazid (Tri (07/15/19 09:00) (Nf) Venlafaxine Hcl (Effexor Xr) (07/15/19 09:00) Acetaminophen Tablet (Tylenol Tablet) (07/14/19 18:00) Ascorbic Acid Tablet (Vitamin C Tablet) (07/15/19 07:00) Lactulose Oral Solution (Enulose Oral So (07/14/19 21:00) Atorvastatin Tablet (Lipitor Tablet) (07/14/19 21:00) Magnesium Oxide Tablet (Mag Ox Tablet) (07/15/19 08:00) Therapeutic Multivitamin Tab (Vitamins, (07/15/19 07:00) Triamterene/Hctz 75-50 Tablet (Maxzide 7 (07/15/19 07:00) Venlafaxine Xr Capsule (Effexor Xr Capsu (07/15/19 07:00) General/Regular (07/14/19 Dinner) Niacin Tablet (Niacin Tablet) (07/15/19 17:00) Ambulate 08,12,20 (07/14/19 18:39) Sequential Compression Device Q4H (07/14/19 18:39) Dvt/Vte Risk - Notifiy Physici Q4H (07/14/19 18:39) Potassium Chloride (Tablet) (K Dur Table (07/15/19 17:00) Bipap (Bilevel) Set Up (07/15/19 13:22) Nursing Communication (Order) (07/15/19 13:22) Communication For Respiratory (07/15/19 13:22) Chest Pa/Lat (2 View) (07/15/19 13:29) Patient Visit (07/15/19 ) Exercise Therap, Ea 15 Min (07/15/19 ) Functional Activities, Ea 15 (07/15/19 ) Gait Training, Ea 15 Min (07/15/19 ) Pt Eval Moderate Complexity (07/15/19 ) Patient Visit (07/15/19 ) Speech Sound Lang Comp (07/15/19 ) Automatic Tray (07/15/19 18:59) Rehab Nursing Orders: Ongoing Assess. of Cognitive Status, Ongoing Assess. of Function Status, Bladder Management, Bladder Scan, Bladder Training, Bowel Management, Disease Management & Educaiton, DVT Prophylaxis, Fall Prevention, Medication Management & Education, Management of Risks & Complications, Management of Skin Intergrity, Pain Management, Patient/Family Support, Safety Management Intensity of Therapy to be met Patient to be seen: Min.3h per day/5 of 7d PT IPOC Problem List: Activity Tolerance, Functional Strength, Safety, Balance, Gait, Transfer, Bed Mobility, ROM Treatment Plan: Continue Plan of Care Bed Mobility, Education, Functional Activity Shayy, Functional Strength, Group Therapy, Gait, Safety, Therapeutic Exercise, Transfers Treatment Duration: Aug 05, 2019 Frequency: At least 5 of 7 days/Wk (IRF) Estimated Hrs Per Day: 1.5 hours per day OT IPOC Problems: Decreased Activ Tolerance, Decreased UE Strength, Dependent Transfers, Impaired I ADL's, Impaired Self-Care Skills OT Treatment, Training and Edu: Yes Plan of Care: ADL Retraining, Functional Mobility, Group Exercise/Act as Ind, UE Funct Exercise/Act Treatment Duration: Aug 05, 2019 Frequency: At least 5 of 7 days/Wk (IRF) Estimated Hrs Per Day: 1.[address] IPOC Speech Therapy Treatment Plan: Continue Plan of Care Treatment Duration: Jul 15, 2019 Frequency: 1 time per week Estimated Hrs Per Day: .25 hour per day Section Supervisor/Case Mgmt Section Supervisor/Case Managemen: Discharge Planning Dietitian/Demand Planning Manager Dietitian/Demand Planning Manager to monitor nutritional status and make changes and/or recommendations as needed and work with speech pathology on dietary upgrades as the occur. Physician IPOC Medical Issues being managed closely and that require the 24 hour availability of a physician: Severe acute on chronic CO2 narcosis continues to be a risk and cause respiratory insufficiency will need close monitoring and BiPAP along with oxygen supplementation and Dr. Briscoe consultation Medical Issues: Bowel/Bladder Function, DVT Prophylaxis, Falls Precautions, Fluid/Electrolyte/Nutrition Balance, Pain Management Brief Synthesis of Preadmission Screen, Post-Admission Evaluation, and Therapy Evaluations: Physical therapy will work on safety precautions and fall prevention and decrease impulsivity the use of assistive devices Occupational therapy will help regain independent ADLs suspicious since right hip replacement 6 weeks ago 05/04/19 Medical Prognosis: Good Anticipated Length of Stay: 7 days RAMOS CIFUENTES DO Jul 16, 2019 10:44
--- NOTE | 2019-07-16 12:39 | Occupational Ther Daily Note ---
OT Current Status-Daily Note Subjective Pt seen in room, up in recliner, agreeable to OT. No pain mentioned. Appearance Alert, cooperative. Perseverates at times Mental Status/Objective Patient Orientation: Person, Confused, Place, Time, Situation Therapy Code Descriptions/Definitions Functional [place] Measure: 0=Not Assessed/NA 4=Minimal Assistance 1=Total Assistance 5=Supervision or Setup 2=Maximal Assistance 6=Modified [place] 3=Moderate Assistance 7=Complete [place] ADL-Treatment Pt agreeable to shower, changing clothes and shaving. Perseverated on schedule initially - he would like to do OT before PT so that he's dressed in the morning. Sequence for ADLs reviewed with pt before starting them. Walked to bathroom CGA, FWW. Pt educ shower transfer technique. Pt educ to sit to undress and to shower for safety and fall prevention. Pt took O2 off to wash his hair and undress/dress upper body. Required cues and physical assistance first two times but got sequence correct last time. Skilled cues to complete shower, with some directions, washing and drying all parts except back, CGA when standing to wash and dry bottom. Shower bench, grab bars, hand held shower, FWW. Doffed and donned short with setup. Doffed pants and socks with cues. Donned pants with pt eud modified technique and SBA when standing to pull pants up, FWW. Pt walked to sink and shaved with supervision, setup. Cues to stay on task. All ADLs except eating took extra time and supervision. Walked CGA, FWW to recliner, setup for lunch. Chair alarm in place, all needs met. Therapy Code Descriptions/Definitions Functional [place] Measure: 0=Not Assessed/NA 4=Minimal Assistance 1=Total Assistance 5=Supervision or Setup 2=Maximal Assistance 6=Modified [place] 3=Moderate Assistance 7=Complete [place] Therapy Quality Codes: 6 Independent with activity with or without an assistive device 5 Patient requires set up or clean up by helper. Patient completes activity by themselves 4 Supervision or touching assist (CGA). [place] provide cues , steadying assist 3 The helper provides less than half the effort to complete the activity 2 The helper provides more than half the effort to complete the activity 1 Dependent. The helper does all the effort to complete an activity 7 Patient refused to complete or attempt activity 9 The patient did not perform the activity before the current illness or injury 88 Not attempted due to Medical conditions or safety concerns Eating (FIM): 5 Eating (QC): 5 Grooming (FIM): 5 Oral Hygiene (QC): 4 Bathing (FIM): 4 (CGA when standing to wash and dry bottom.) Shower/Bathe Self (QC): 4 Upper Body (FIM): 5 Upper Body Dressing (QC): 4 (supervision) Lower Body Dressing (FIM): 4 (CGA) Lower Body Dressing (QC): 4 Shower Transfer(FIM): 4 (CGA) Education OT Patient Education: Modified ADL techniques, Progress toward Goal/Update tx plan, Purpose of tx/functional activities, Safety issues, Transfer techniques Teaching Recipient: Patient Teaching Methods: Demonstration, Discussion Response to Teaching: Verbalize Understanding, Return Demonstration, Reinforcement Needed OT Short Term Goals Short Term Goals Time Frame: Jul 22, 2019 Upper Body Dressing(FIM): 5 Lower Body Dressing(FIM): 5 Toileting(FIM): 5 Toilet/Commode Transfer(FIM): 5 Additional Short Term Goals: 1-Demonstrate ADL Tasks, 2-Verbalize Understanding, 3-ImproveStrength/Shayy 1=Demonstrate adherence to instructed precautions during ADL tasks. 2=Patient will verbalize/demonstrate understanding of assistive devices/modifications for ADL. 3=Patient will improve strength/tolerance for activity to enable patient to perform ADL's. OT Fpc Goals Fpc Goals Time Frame: Aug 05, 2019 Eating (FIM): 6 Eating (QC): 6 Groomin Oral Hygiene (QC): 6 Bathing(FIM): 5 Shower/Bathe Self (QC): 5 Upper Body Dressing(FIM): 6 Upper Body Dressing (QC): 6 Lower Body Dressing(FIM): 6 Lower Body Dressing (QC): 6 On/Off Footwear (QC): 6 Toileting(FIM): 6 Toileting Hygiene (QC): 6 Toilet/Commode Transfer(FIM): 6 Toilet/Commode Transfer (QC): 6 Shower Transfer(FIM): 5 Additional Goals: 1-Demonstrate ADL Tasks, 2-Verbalize Understanding, 3- ImproveStrength/Shayy 1=Demonstrate adherence to instructed precautions during ADL tasks. 2=Patient will verbalize/demonstrate understanding of assistive devices/modifications for ADL. 3=Patient will improve strength/tolerance for activity to enable patient to perform ADL's. OT Education/Plan Discharge Recommendations Plan/Recommendations: Continue POC Treatment Plan/Plan of Care Patient would benefit from OT for education, treatment and training to promote independence in ADL's, mobility, safety and/or upper extremity function for AD L's. Plan of Care: ADL Retraining, Functional Mobility, Group Exercise/Act as Ind, UE Funct Exercise/Act Treatment Duration: Aug 05, 2019 Frequency: At least 5 of 7 days/Wk (IRF) Estimated Hrs Per Day: 1.5 hours per day Rehab Potential: Fair Time/GCodes Start Time: 10:45 Stop Time: 12:25 Total Time Billed (hr/min): 100 Billed Treatment Time visit, 100 minutes ADL SIMBA CARLSON OT Jul 16, 2019 12:39
--- NOTE | 2019-07-16 14:37 | NUR ---
Anointed by Fr Leroy Liz. also provided prayer and Communion.
--- NOTE | 2019-07-16 14:43 | Physical Therapy Daily Note ---
PT Daily Note-Current Subjective agrees to PT. Talks throughout the treatment, often conversation is regarding topics of the far past. Transfers Therapy Code Descriptions/Definitions Functional [place] Measure: 0=Not Assessed/NA 4=Minimal Assistance 1=Total Assistance 5=Supervision or Setup 2=Maximal Assistance 6=Modified [place] 3=Moderate Assistance 7=Complete [place] Therapy Quality Codes: 6 Independent with activity with or without an assistive device 5 Patient requires set up or clean up by helper. Patient completes activity by themselves 4 Supervision or touching assist (CGA). [place] provide cues , steadying assist 3 The helper provides less than half the effort to complete the activity 2 The helper provides more than half the effort to complete the activity 1 Dependent. The helper does all the effort to complete an activity 7 Patient refused to complete or attempt activity 9 The patient did not perform the activity before the current illness or injury 88 Not attempted due to Medical conditions or safety concerns Gait Training Does the Patient Walk?: Yes Distance (FIM): 3=150 ft Distance: 250 ft x 3 reps Gait Assistive Device: FWW skilled cues for step length and fabián; pt tends to talk and slow down and decrease his step length. Exercises Standing: Hamstring curls, Heel/toe raises, Marching, Mini squats, Sit to Stand Standing Reps: 15 (to promote LE strength for functional act tole) Assessment Current Status: Good Progress Easily distracted but redirects with cuing. Tolerated treatment well and gait pattern improvedc with cues. PT Short Term Goals Short Term Goals Time Frame: Jul 22, 2019 Gait (FIM): 5 Gait Distance Comment: 200' Gait Level of Assist: 5 Gait Assistive Device: FWW PT Fdc Goals Fdc Goals PT Fdc Goals Time Frame: Aug 05, 2019 Transfers (B,C,W/C) (FIM): 6 Sit to Lying (QC): 6 Lying-Sitting on Side/Bed(QC): 6 Sit to Stand (QC): 6 Rollin Roll Left to Right (QC): 6 Chair/Nlo-vw-Qxhio Xfer(QC): 6 Car Transfer (QC): 6 Gait (FIM): 6 Distance: 300' Walk 10 feet (QC): 6 Walk 10ft-Uneven Surface(QC): 6 Walk 50ft with 2 Turns (QC): 6 Walk 150 ft (QC): 6 Gait Level of Assist: 6 Gait Assistive Device: FWW Stairs (FIM): 2 # of Steps: 4 1 Step (curb) (QC): 4 4 Steps (QC): 4 Stairs Level Of Assist: 5 PT Plan Problem List Problem List: Activity Tolerance, Functional Strength, Safety Treatment/Plan Treatment Plan: Continue Plan of Care Treatment Plan: Bed Mobility, Education, Functional Activity Shayy, Functional Strength, Group Therapy, Gait, Safety, Therapeutic Exercise, Transfers Treatment Duration: Aug 05, 2019 Frequency: At least 5 of 7 days/Wk (IRF) Estimated Hrs Per Day: 1.5 hours per day Patient and/or Family Agrees t: Yes Time/GCodes Time In: 1300 Time Out: 1330 Total Billed Treatment Time: 30 Total Billed Treatment visit EX 20 GT 10 SKYE FELIX PT Jul 16, 2019 14:43
--- NOTE | 2019-07-16 15:24 | Pulmonary Progress Note ---
Standard Progress Note Progress Notes Date Seen by Provider: Jul 16, 2019 Time Seen by Provider: 15:20 Pt is sitting up in chair with his oxygen on at 3L talking on phone; he is without c/o Assessment & Plan Morbid obesity with OHS - recent hospitalization with acute on chronic respiratory failure -Continue noninvasive ventilation at night -Home vent to mask will be set up at discharge. Will use hospital vent to mask for now QHS. -Check ABG ? -LABS and CXR reviewed by Dr. Briscoe -Lungs CTA Anemia -Monitor (Admission note, pulmonary note, image, labs, were reviewed in order to provide continued care) ZAYRA PFEIFFER APRN Jul 16, 2019 15:24
[2019-07-16 17:02] VITALS: BP 154/90
[2019-07-16] MEDS: NIACIN 500 MG TABLET PO SCH (17:30)
[2019-07-16] MEDS: MELATONIN 3 MG TABLET PO PRN (19:56)
[2019-07-17 05:16] VITALS: BP 157/89
[2019-07-17] MEDS: ASCORBIC ACID (VIT C) 500 MG TABLET PO SCH (06:23)
[2019-07-17] MEDS: KCL 20 MEQ TAB (K-DUR) PO SCH ×2 (06:23→17:04)
[2019-07-17] MEDS: MULTIVIT W/MINERALS TAB (THERAGRAN M) PO SCH (06:23)
[2019-07-17] MEDS: VENlafaxine XR 75 MG (EFFEXOR XR) CAP PO SCH (06:23)
[2019-07-17] MEDS: TRIAMTERENE/HCTZ 75-50 (MAXZIDE,DYAZIDE) TABLET PO SCH (06:23)
[2019-07-17] MEDS: ENOXAPARIN 40 MG/0.4 ML (LOVENOX) SYR SC SCH ×2 (08:15→20:47)
[2019-07-17] MEDS: MAGNESIUM OXIDE (MAG-OX)400 MG TAB PO SCH (08:15)
[2019-07-17] MEDS: amLODIPine 5 MG (NORVASC) TAB PO SCH (08:15)
[2019-07-17] MEDS: ASPIRIN 325 MG (5 GR) TABLET PO SCH (08:15)
[2019-07-17] MEDS: SENNA W/DOCUSATE (SENOKOT S) TABLET PO SCH ×2 (08:15→20:59)
[2019-07-17] MEDS: lisINopril 40 MG (PRINIVIL) TABLET PO SCH (08:15)
[2019-07-17] MEDS: meTOprolol TARTRATE 25 MG (LOPRESSOR) TABLET PO SCH ×2 (08:15→20:46)
--- NOTE | 2019-07-17 08:58 | Physical Therapy Daily Note ---
PT Daily Note-Current Subjective Patient in recliner pre tx, agrees to PT, no complaints of pain. Appearance Patient in recliner post tx with nurse call, phone, tray, chair alarm on. Mental Status Patient Orientation: Person, Confused Transfers Therapy Code Descriptions/Definitions Functional [place] Measure: 0=Not Assessed/NA 4=Minimal Assistance 1=Total Assistance 5=Supervision or Setup 2=Maximal Assistance 6=Modified [place] 3=Moderate Assistance 7=Complete [place] Therapy Quality Codes: 6 Independent with activity with or without an assistive device 5 Patient requires set up or clean up by helper. Patient completes activity by themselves 4 Supervision or touching assist (CGA). [place] provide cues , steadying assist 3 The helper provides less than half the effort to complete the activity 2 The helper provides more than half the effort to complete the activity 1 Dependent. The helper does all the effort to complete an activity 7 Patient refused to complete or attempt activity 9 The patient did not perform the activity before the current illness or injury 88 Not attempted due to Medical conditions or safety concerns Transfers (B, C, W/C) (FIM): 5 Sit to/from Stand: 5 Bed to/from Chair: 5 Gait Training Gait (FIM): 5 Distance: 200'x2 Gait Level of Assist: 5 Gait Persons Needed: 1 Gait Assistive Device: FWW slow but steady ambulation, cues for direction Exercises NuStep Minutes: 15 NuStep Workload: 4 Treatments transfers, ambulation, LE exercise, patient was toileted twice to urinate but co uld not either time Assessment Current Status: Poor Progress Patient is very emotionally labile this morning. He cried several times about memories from the past and was just overly emotional about everything that was done in therapy. Extra time to complete tasks to deal with this. PT Short Term Goals Short Term Goals Time Frame: Jul 22, 2019 Gait (FIM): 5 Gait Distance Comment: 200' Gait Level of Assist: 5 Gait Assistive Device: FWW PT [employer] Advanced Operator Maintainer Goals [employer] Advanced Operator Maintainer Goals PT Detention Goals Time Frame: Aug 05, 2019 Transfers (B,C,W/C) (FIM): 6 Sit to Lying (QC): 6 Lying-Sitting on Side/Bed(QC): 6 Sit to Stand (QC): 6 Rollin Roll Left to Right (QC): 6 Chair/Tfb-hp-Cvnpj Xfer(QC): 6 Car Transfer (QC): 6 Gait (FIM): 6 Distance: 300' Walk 10 feet (QC): 6 Walk 10ft-Uneven Surface(QC): 6 Walk 50ft with 2 Turns (QC): 6 Walk 150 ft (QC): 6 Gait Level of Assist: 6 Gait Assistive Device: FWW Stairs (FIM): 2 # of Steps: 4 1 Step (curb) (QC): 4 4 Steps (QC): 4 Stairs Level Of Assist: 5 PT Plan Problem List Problem List: Activity Tolerance, Functional Strength, Safety, Balance, Gait, Transfer, Bed Mobility, ROM Treatment/Plan Treatment Plan: Continue Plan of Care Treatment Plan: Bed Mobility, Education, Functional Activity Shayy, Functional Strength, Group Therapy, Gait, Safety, Therapeutic Exercise, Transfers Treatment Duration: Aug 05, 2019 Frequency: At least 5 of 7 days/Wk (IRF) Estimated Hrs Per Day: 1.5 hours per day Patient and/or Family Agrees t: Yes Safety Risks/Education Patient Education: Gait Training, Transfer Techniques, Correct Positioning, Safety Issues Teaching Recipient: Patient Teaching Methods: Demonstration, Discussion Response to Teaching: Reinforcement Needed Time/GCodes Time In: 0800 Time Out: 0900 Total Billed Treatment Time: 60 Total Billed Treatment 1 visit EX 15' GT 20' FA 25' ROBERTA TELLES PT Jul 17, 2019 08:58
[2019-07-17] MEDS: POLYETHYLENE GLYCOL 17 GM (MIRALAX) PACK PO SCH ×2 (09:00→20:58)
[2019-07-17] MEDS: LACTULOSE SYRUP 10GM/15ML (ENULOSE) 30ML UDC PO SCH ×2 (09:00→20:58)
--- NOTE | 2019-07-17 11:00 | PM&R Progress Note ---
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 Bruno in [facility] was sent home the next day began having problems with confusion and altered mental status who then presented to [facility] ER he was placed in observation ultimately sent to [facility] for neurology workup which included MRI and spinal tap which all were unrevealing of source and then he was sent home and very rapidly began having more confusion sent [facility] workup was negative so patient was sent to the senior behavioral unit [facility] last Saturday on 07/07/19 since all the workup was negative including ABG revealing pH is 7.56 CO2 26 and O2 of 92 who I assessed the following morning finding him into respiratory insufficiency when he was still sleeping with severe snoring and apnea ABG revealed pH is 7.2/58/52 confirming my suspicion this was acute on chronic CO2 narcosis due to untreated sleep apnea. He refuses to use a see Pap sheet he has at home and all of this was confirmed with Gabby Henning. Patient was transferred to via [facility] ICU placed on aggressive BiPAP regimen by pulmonology Dr. Briscoe and he improved and was able to go back to the senior behavioral unit on Saturday to work on hallucinations and delusions. He remained stable while in [facility] Haldol was initiated and delirium cleared and he was accepted to inpatient rehabilitation yesterday to complete his treatment and recovery in order to remain independent and go home with his family. Subjective/Events-last exam Pt still talks a lot. He wore his own CPAP and did well last night. He slept pretty well overall. He repeats himself a lot. Pt participating in therapies and doing very well. Seems to be a psych component as well, unsure of his baseline. Checked meds and labs Conferred with RN Reviewed therapy notes Review of Systems General: Fatigue Neurological: Confusion Objective Exam Vital Signs Vital Signs Date Time Temp Pulse Resp B/P (MAP) Pulse Ox O2 Delivery O2 Flow Rate FiO2 07/17/19 17:09 36.6 71 18 150/85 (106) 97 Nasal Cannula 3.00 Capillary Refill : General Appearance: No Apparent Distress, WD/WN, Chronically ill, Obese HEENT: PERRL/EOMI, Normal ENT Inspection, Pharynx Normal, Moist Mucous Membranes Neck: Full Range of Motion, Normal Inspection, Non Tender, Supple Respiratory: Chest Non Tender, Lungs Clear, Normal Breath Sounds, No Accessory Muscle Use, No Respiratory Distress Cardiovascular: Regular Rate, Rhythm, No Edema, No Gallop, No JVD, No Murmur Gastrointestinal: Normal Bowel Sounds, No Organomegaly, No Pulsatile Mass, Non Tender, Soft Back: Normal Inspection, No CVA Tenderness, No Vertebral Tenderness Extremity: Normal Capillary Refill, Normal Inspection, Normal Range of Motion, Non Tender, No Calf Tenderness, No Pedal Edema Neurologic/Psychiatric: Alert, Oriented x3, No Motor/Sensory Deficits, Normal 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 FIM Transfers Therapy Code Descriptions/Definitions Functional [place] Measure: 0=Not Assessed/NA 4=Minimal Assistance 1=Total Assistance 5=Supervision or Setup 2=Maximal Assistance 6=Modified [place] 3=Moderate Assistance 7=Complete [place] Therapy Quality Codes: 6 Independent with activity with or without an assistive device 5 Patient requires set up or clean up by helper. Patient completes activity by themselves 4 Supervision or touching assist (CGA). [place] provide cues , steadying assist 3 The helper provides less than half the effort to complete the activity 2 The helper provides more than half the effort to complete the activity 1 Dependent. The helper does all the effort to complete an activity 7 Patient refused to complete or attempt activity 9 The patient did not perform the activity before the current illness or injury 88 Not attempted due to Medical conditions or safety concerns Transfers (B, C, W/C) (FIM): 5 Scootin Rollin Roll Left to Right (QC): 4 Supine to/from Sit: 5 Sit to/from Stand: 5 Sit to Lying (QC): 4 Sit to Stand (QC): 4 Chair/Lnr-pn-Ognpx Xfer(QC): 4 Bed to/from Chair: 5 Car Transfer (QC): 4 Gait Training Does the Patient Walk?: Yes Gait (FIM): 5 Distance (FIM): 3=150 ft Distance: 200'x2 Gait Level of Assist: 5 Gait Persons Needed: 1 Gait Assistive Device: FWW Wheelchair Training Does the Pt Use a Wheelchair?: No Stair Training Stairs (FIM): 1 #of Steps: 1 1 Step (curb) (QC): 4 Level of Assist: 4 Mental Status/Objective Comprehension: 7 Expression: 7 Social Interaction: 7 Problem Solvin Memory: 7 ADL-Treatment Feedin Eating (QC): 5 Groomin Oral Hygiene (QC): 4 Bathin (CGA when standing to wash and dry bottom.) Shower/Bathe Self (QC): 4 Upper Extremity Dressin Upper Body Dressing (QC): 4 (supervision) Lower Extremity Dressin (CGA) Lower Body Dressing (QC): 4 On/Off Footwear (QC): 3 Toiletin Toileting Hygiene (QC): 4 Toilet/Commode Transfer: 4 (CGA) Toilet Transfer (QC): 4 (CGA) Shower: 4 (CGA) Assessment/Plan Assessment and Plan Assess & Plan/Chief Complaint Assessment: CO2 narcosis acute on chronic resulting in hallucinations and delusions now resolved after antipsychotic regimen now off meds and doing much better Severe untreated sleep apnea with noncompliance with CPAP Hypertension Hyperlipidemia Arthritis Plan: Dr. Briscoe consultation is appreciated Vent mask option at [place] Check labs prn Monitor closely (1) CO2 narcosis Status: Acute (2) Hypokalemia (3) Anemia Status: Acute Qualifiers: Anemia type: unspecified type Qualified Codes: D64.9 - Anemia, unspecified (4) Confusion Status: Acute (5) Delusions Status: Acute (6) Hyperlipidemia Status: Chronic Qualifiers: Hyperlipidemia type: mixed hyperlipidemia Qualified Codes: E78.2 - Mixed hyperlipidemia (7) Leukopenia Status: Acute Qualifiers: Leukopenia type: unspecified Qualified Codes: D72.819 - Decreased white blood cell count, unspecified (8) Hypertension Status: Chronic Qualifiers: Hypertension type: essential hypertension Qualified Codes: I10 - Essential (primary) hypertension (9) DAYANA (obstructive sleep apnea) Status: Chronic (10) Obesity hypoventilation syndrome Status: Chronic (11) Obesity (BMI 30-39.9) Status: Chronic (12) History of ileus Status: Resolved Resolution Date/Time: 07/11/19 @ 10:44 (13) History of right hip replacement Status: Chronic RAMOS CIFUENTES DO Jul 17, 2019 11:00
--- NOTE | 2019-07-17 11:57 | Occupational Ther Daily Note ---
OT Current Status-Daily Note Subjective Pt sitting in chair, agrees to therapy. Mental Status/Objective Therapy Code Descriptions/Definitions Functional [place] Measure: 0=Not Assessed/NA 4=Minimal Assistance 1=Total Assistance 5=Supervision or Setup 2=Maximal Assistance 6=Modified [place] 3=Moderate Assistance 7=Complete [place] Attachments: Oxygen ADL-Treatment Pt sit to stand with supervision. Gait to restroom with FWW, assist to manage O2 tubing. Pt stood at toilet to urinate with supervision. Pt transferred to walk in shower with SBA using grab bars, skilled cues for safety. Seated bathing completed using hand held shower. Pt bathed upper body with set up. Able to wash bilateral upper legs, [place] area, and buttocks. Pt required assist to wash feet. Increased time for bathing. Don pullover shirt with SBA. Pt donned shorts with supervision for balance during pant hike. Donned bilateral socks with min assist using sock aid. Grooming tasks completed seated at sink. Pt shaved with SBA and increased time. Pt is easily distracted and requires cues to remain on task. Pt talks throughout treatment, but conversation is difficult to follow. Therapy Code Descriptions/Definitions Functional [place] Measure: 0=Not Assessed/NA 4=Minimal Assistance 1=Total Assistance 5=Supervision or Setup 2=Maximal Assistance 6=Modified [place] 3=Moderate Assistance 7=Complete [place] Therapy Quality Codes: 6 Independent with activity with or without an assistive device 5 Patient requires set up or clean up by helper. Patient completes activity by themselves 4 Supervision or touching assist (CGA). [place] provide cues , steadying assist 3 The helper provides less than half the effort to complete the activity 2 The helper provides more than half the effort to complete the activity 1 Dependent. The helper does all the effort to complete an activity 7 Patient refused to complete or attempt activity 9 The patient did not perform the activity before the current illness or injury 88 Not attempted due to Medical conditions or safety concerns Grooming (FIM): 5 Bathing (FIM): 4 Shower/Bathe Self (QC): 3 Upper Body (FIM): 5 Upper Body Dressing (QC): 5 Lower Body Dressing (FIM): 4 Toileting (FIM): 5 Toileting Hygiene (QC): 4 Shower Transfer(FIM): 5 Other Treatment Gait to therapy gym with FWW, no LOB noted. Pt completed resistance peg activity with bilateral UE with 1# weights in place to increase overall strength and activity tolerance needed for functional tasks. Pt completed task without assistance. Occasional rest breaks. Pt returned to room, sitting in chair with needs met and chair alarm in place after session. OT Short Term Goals Short Term Goals Time Frame: Jul 22, 2019 Upper Body Dressing(FIM): 5 Lower Body Dressing(FIM): 5 Toileting(FIM): 5 Toilet/Commode Transfer(FIM): 5 Additional Short Term Goals: 1-Demonstrate ADL Tasks, 2-Verbalize U nderstanding, 3-ImproveStrength/Shayy 1=Demonstrate adherence to instructed precautions during ADL tasks. 2=Patient will verbalize/demonstrate understanding of assistive devices/modifications for ADL. 3=Patient will improve strength/tolerance for activity to enable patient to perform ADL's. OT [employer] Goals Usp Goals Time Frame: Aug 05, 2019 Eating (FIM): 6 Eating (QC): 6 Groomin Oral Hygiene (QC): 6 Bathing(FIM): 5 Shower/Bathe Self (QC): 5 Upper Body Dressing(FIM): 6 Upper Body Dressing (QC): 6 Lower Body Dressing(FIM): 6 Lower Body Dressing (QC): 6 On/Off Footwear (QC): 6 Toileting(FIM): 6 Toileting Hygiene (QC): 6 Toilet/Commode Transfer(FIM): 6 Toilet/Commode Transfer (QC): 6 Shower Transfer(FIM): 5 Additional Goals: 1-Demonstrate ADL Tasks, 2-Verbalize Understanding, 3- ImproveStrength/Shayy 1=Demonstrate adherence to instructed precautions during ADL tasks. 2=Patient will verbalize/demonstrate understanding of assistive devices/modifications for ADL. 3=Patient will improve strength/tolerance for activity to enable patient to perform ADL's. OT Education/Plan Discharge Recommendations Plan/Recommendations: Continue POC Treatment Plan/Plan of Care Patient would benefit from OT for education, treatment and training to promote independence in ADL's, mobility, safety and/or upper extremity function for ADL's. Plan of Care: ADL Retraining, Functional Mobility, Group Exercise/Act as Ind, UE Funct Exercise/Act Treatment Duration: Aug 05, 2019 Frequency: At least 5 of 7 days/Wk (IRF) Estimated Hrs Per Day: 1.5 hours per day Rehab Potential: Fair Time/GCodes Start Time: 09:40 Stop Time: 11:10 Total Time Billed (hr/min): 90 Billed Treatment Time 1 visit, ADLx5(75minutes), EX(15minutes) CHARITO JOE OT Jul 17, 2019 11:57
--- NOTE | 2019-07-17 12:56 | NUR ---
Assumed care of patient. Report rec'd from ESTHER Sanchez.
--- NOTE | 2019-07-17 15:07 | Physical Therapy Daily Note ---
PT Daily Note-Current Subjective Pt sitting in recliner with chair alarm on upon arrival. Pt agrees to PT. Pain Location: No Pain Reported Mental Status Patient Orientation: Person, Confused, Place Attachments: Oxygen (3L) Transfers Therapy Code Descriptions/Definitions Functional [place] Measure: 0=Not Assessed/NA 4=Minimal Assistance 1=Total Assistance 5=Supervision or Setup 2=Maximal Assistance 6=Modified [place] 3=Moderate Assistance 7=Complete [place] Therapy Quality Codes: 6 Independent with activity with or without an assistive device 5 Patient requires set up or clean up by helper. Patient completes activity by themselves 4 Supervision or touching assist (CGA). [place] provide cues , steadying assist 3 The helper provides less than half the effort to complete the activity 2 The helper provides more than half the effort to complete the activity 1 Dependent. The helper does all the effort to complete an activity 7 Patient refused to complete or attempt activity 9 The patient did not perform the activity before the current illness or injury 88 Not attempted due to Medical conditions or safety concerns Scootin Sit to/from Stand: 5 Sit to Stand (QC): 5 Gait Training Does the Patient Walk?: Yes Gait (FIM): 5 Distance (FIM): 3=150 ft Distance: 300' Walk 10 feet (QC): 5 Walk 50 ft with 2 Turns(QC): 5 Walk 150 ft (QC): 5 Gait Level of Assist: 5 Gait Persons Needed: 1 Gait Assistive Device: FWW Wheelchair Training Does the Pt Use a Wheelchair?: No Exercises Standing: Hamstring curls, Heel/toe raises, 3 way Ex=Flex, Abd, Ext, Marching, Mini squats Standing Reps: 20 Treatments Pt transfers from recliner to standing and ambulates in hallway and to Therapy Gym. Pt completes Standing EX at //bars. Pt ambulates back to room to rest in recliner with all needs met, call light next to pt. Assessment Current Status: Good Progress Pt demonstrates moments of confusion and needs redirection to stay on task at times. PT Short Term Goals Short Term Goals Time Frame: Jul 22, 2019 Gait (FIM): 5 Gait Distance Comment: 200' Gait Level of Assist: 5 Gait Assistive Device: FWW PT Jail Goals Jail Goals PT Line Welder Goals Time Frame: Aug 05, 2019 Transfers (B,C,W/C) (FIM): 6 Sit to Lying (QC): 6 Lying-Sitting on Side/Bed(QC): 6 Sit to Stand (QC): 6 Rollin Roll Left to Right (QC): 6 Chair/Vcq-ca-Zonhy Xfer(QC): 6 Car Transfer (QC): 6 Gait (FIM): 6 Distance: 300' Walk 10 feet (QC): 6 Walk 10ft-Uneven Surface(QC): 6 Walk 50ft with 2 Turns (QC): 6 Walk 150 ft (QC): 6 Gait Level of Assist: 6 Gait Assistive Device: FWW Stairs (FIM): 2 # of Steps: 4 1 Step (curb) (QC): 4 4 Steps (QC): 4 Stairs Level Of Assist: 5 PT Plan Problem List Problem List: Activity Tolerance, Functional Strength, Safety, Balance Treatment/Plan Treatment Plan: Continue Plan of Care Treatment Plan: Bed Mobility, Education, Functional Activity Shayy, Functional Strength, Group Therapy, Gait, Safety, Therapeutic Exercise, Transfers Treatment Duration: Aug 05, 2019 Frequency: At least 5 of 7 days/Wk (IRF) Estimated Hrs Per Day: 1.5 hours per day Patient and/or Family Agrees t: Yes Safety Risks/Education Patient Education: Gait Training, Transfer Techniques, Correct Positioning, Safety Issues Teaching Recipient: Patient Teaching Methods: Discussion Response to Teaching: Verbalize Understanding Time/GCodes Time In: 1400 Time Out: 1430 Total Billed Treatment Time: 30 Total Billed Treatment 1, GT (10m) & EX (20m) FARNAZ ARCOS PTA Jul 17, 2019 15:07
[2019-07-17] MEDS: NIACIN 500 MG TABLET PO SCH (17:04)
[2019-07-17 17:09] VITALS: BP 150/85
[2019-07-18 05:06] VITALS: BP 130/78
[2019-07-18] MEDS: TRIAMTERENE/HCTZ 75-50 (MAXZIDE,DYAZIDE) TABLET PO SCH (06:38)
[2019-07-18] MEDS: MULTIVIT W/MINERALS TAB (THERAGRAN M) PO SCH (06:38)
[2019-07-18] MEDS: VENlafaxine XR 75 MG (EFFEXOR XR) CAP PO SCH (06:38)
[2019-07-18] MEDS: KCL 20 MEQ TAB (K-DUR) PO SCH ×2 (06:38→17:15)
[2019-07-18] MEDS: ASCORBIC ACID (VIT C) 500 MG TABLET PO SCH (06:38)
[2019-07-18 08:05] VITALS: BP 149/90
[2019-07-18] MEDS: MAGNESIUM OXIDE (MAG-OX)400 MG TAB PO SCH (08:06)
[2019-07-18] MEDS: lisINopril 40 MG (PRINIVIL) TABLET PO SCH (08:06)
[2019-07-18] MEDS: meTOprolol TARTRATE 25 MG (LOPRESSOR) TABLET PO SCH ×2 (08:06→19:57)
[2019-07-18] MEDS: SENNA W/DOCUSATE (SENOKOT S) TABLET PO SCH ×2 (08:06→19:58)
[2019-07-18] MEDS: ASPIRIN 325 MG (5 GR) TABLET PO SCH (08:06)
[2019-07-18] MEDS: amLODIPine 5 MG (NORVASC) TAB PO SCH (08:06)
[2019-07-18] MEDS: POLYETHYLENE GLYCOL 17 GM (MIRALAX) PACK PO SCH ×2 (08:08→19:35)
[2019-07-18] MEDS: ENOXAPARIN 40 MG/0.4 ML (LOVENOX) SYR SC SCH ×2 (08:08→19:57)
[2019-07-18] MEDS: LACTULOSE SYRUP 10GM/15ML (ENULOSE) 30ML UDC PO SCH ×2 (08:08→19:35)
--- NOTE | 2019-07-18 11:10 | Physical Therapy Daily Note ---
PT Daily Note-Current Subjective pt agreeable to PT session, pt very talkative, perseveration on "baby steps" on progressing in life at this time and family issues and making sure physician gets all of his notes he has written down Pain Numeric Pain Scale: 0-No Pain Appearance Upon arrival, pt sitting up in chair just finished breakfast, chair alarm activated. At end of session, pt sitting up in chair with chair alarm activated, call light, phone and bedside table within reach Mental Status Patient Orientation: Person, Place, Time, Eyes Open, Situation Attachments: Oxygen (3L O2/NC) Transfers Therapy Code Descriptions/Definitions Functional [place] Measure: 0=Not Assessed/NA 4=Minimal Assistance 1=Total Assistance 5=Supervision or Setup 2=Maximal Assistance 6=Modified [place] 3=Moderate Assistance 7=Complete [place] Therapy Quality Codes: 6 Independent with activity with or without an assistive device 5 Patient requires set up or clean up by helper. Patient completes activity by themselves 4 Supervision or touching assist (CGA). Olla provide cues , steadying assist 3 The helper provides less than half the effort to complete the activity 2 The helper provides more than half the effort to complete the activity 1 Dependent. The helper does all the effort to complete an activity 7 Patient refused to complete or attempt activity 9 The patient did not perform the activity before the current illness or injury 88 Not attempted due to Medical conditions or safety concerns Transfers (B, C, W/C) (FIM): 5 Sit to/from Stand: 5 pt able to follow skilled instruction for safety and hand placement Gait Training Does the Patient Walk?: Yes Gait (FIM): 5 Distance (FIM): 3=150 ft Distance: 150 x2 Gait Level of Assist: 5 Gait Persons Needed: 1 Gait Assistive Device: FWW slow shuffling gait, fair step length, decreased step height, decreased heel strike Exercises NuStep Minutes: 15 NuStep Workload: 5 (seat 8, LE's only) Treatments transfers, safety, balance, strength, activity tolerance, gait, functional mobility Assessment Current Status: Good Progress Pt having difficulty keeping on task requiring skilled intervention PT Short Term Goals Short Term Goals Time Frame: Jul 22, 2019 Gait (FIM): 5 Gait Distance Comment: 200' Gait Level of Assist: 5 Gait Assistive Device: FWW PT Mcfp Goals Eyeglass Frame Truer Goals PT Mcfp Goals Time Frame: Aug 05, 2019 Transfers (B,C,W/C) (FIM): 6 Sit to Lying (QC): 6 Lying-Sitting on Side/Bed(QC): 6 Sit to Stand (QC): 6 Rollin Roll Left to Right (QC): 6 Chair/Him-qu-Vqfyl Xfer(QC): 6 Car Transfer (QC): 6 Gait (FIM): 6 Distance: 300' Walk 10 feet (QC): 6 Walk 10ft-Uneven Surface(QC): 6 Walk 50ft with 2 Turns (QC): 6 Walk 150 ft (QC): 6 Gait Level of Assist: 6 Gait Assistive Device: FWW Stairs (FIM): 2 # of Steps: 4 1 Step (curb) (QC): 4 4 Steps (QC): 4 Stairs Level Of Assist: 5 PT Plan Treatment/Plan Treatment Plan: Continue Plan of Care Treatment Plan: Bed Mobility, Education, Functional Activity Shayy, Functional Strength, Group Therapy, Gait, Safety, Therapeutic Exercise, Transfers Treatment Duration: Aug 05, 2019 Frequency: At least 5 of 7 days/Wk (IRF) Estimated Hrs Per Day: 1.5 hours per day Patient and/or Family Agrees t: Yes Safety Risks/Education Patient Education: Gait Training, Transfer Techniques, Safety Issues Teaching Recipient: Patient Teaching Methods: Demonstration, Discussion Response to Teaching: Verbalize Understanding, Return Demonstration, Reinforcement Needed Time/GCodes Time In: 853 Time Out: 937 Total Billed Treatment Time: 44 Total Billed Treatment 1 visit, GT x2 units, EX x 1 unit IFRAH GARCIA PAEDIATRIC THORACIC PHYSICIAN Jul 18, 2019 11:10
--- NOTE | 2019-07-18 11:39 | PM&R Progress Note ---
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 Bruno in [facility] was sent home the next day began having problems with confusion and altered mental status who then presented to [facility] ER he was placed in observation ultimately sent to [place] for neurology workup which included MRI and spinal tap which all were unrevealing of source and then he was sent home and very rapidly began having more confusion sent [place] ER workup was negative so patient was sent to the senior behavioral unit [facility] last Saturday on 07/07/19 since all the workup was negative including ABG revealing pH is 7.56 CO2 26 and O2 of 92 who I assessed the following morning finding him into respiratory insufficiency when he was still sleeping with severe snoring and apnea ABG revealed pH is 7.2/58/52 confirming my suspicion this was acute on chronic CO2 narcosis due to untreated sleep apnea. He refuses to use a see Pap sheet he has at home and all of this was confirmed with Gabby Henning. Patient was transferred to via [facility] ICU placed on aggressive BiPAP regimen by pulmonology Dr. Briscoe and he improved and was able to go back to the senior behavioral unit on Saturday to work on hallucinations and delusions. He remained stable while in [facility] Haldol was initiated and delirium cleared and he was accepted to inpatient rehabilitation yesterday to complete his treatment and recovery in order to remain independent and go home with his family. Subjective/Events-last exam Pt still talks a lot. He didn't sleep well last night He repeats himself a lot. Pt participating in therapies and doing very well. Seems to be a psych component as well, unsure of his baseline. 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 Keeping a log book and diary that doesn't make a whole lot of sense at times when I read it Checked meds and labs Conferred with RN Reviewed therapy notes Review of Systems General: Fatigue Neurological: Confusion Objective Exam Vital Signs Vital Signs Date Time Temp Pulse Resp B/P (MAP) Pulse Ox O2 Delivery O2 Flow Rate FiO2 07/18/19 09:13 Nasal Cannula 3.00 07/18/19 08:05 86 149/90 (109) 07/18/19 05:06 36.5 20 96 Capillary Refill : General Appearance: No Apparent Distress, WD/WN, Chronically ill, Obese HEENT: PERRL/EOMI, Normal ENT Inspection, Pharynx Normal, Moist Mucous Membranes Neck: Full Range of Motion, Normal Inspection, Non Tender, Supple Respiratory: Chest Non Tender, Lungs Clear, Normal Breath Sounds, No Accessory Muscle Use, No Respiratory Distress Cardiovascular: Regular Rate, Rhythm, No Edema, No Gallop, No JVD, No Murmur Gastrointestinal: Normal Bowel Sounds, No Organomegaly, No Pulsatile Mass, Non Tender, Soft Back: Normal Inspection, No CVA Tenderness, No Vertebral Tenderness Extremity: Normal Capillary Refill, Normal Inspection, Normal Range of Motion, Non Tender, No Calf Tenderness, No Pedal Edema Neurologic/Psychiatric: Alert, Oriented x3, No Motor/Sensory Deficits, Normal Mood/Affect, vacuum drum drier operator II-XII Norm as Tested, Disoriented (subtle), Motor Weakness (generalized all extremities) Skin: Normal Color, Warm/Dry Lymphatic: No Adenopathy Results/Procedures Lab Patient resulted labs reviewed. FIM Transfers Therapy Code Descriptions/Definitions Functional [place] Measure: 0=Not Assessed/NA 4=Minimal Assistance 1=Total Assistance 5=Supervision or Setup 2=Maximal Assistance 6=Modified [place] 3=Moderate Assistance 7=Complete [place] Therapy Quality Codes: 6 Independent with activity with or without an assistive device 5 Patient requires set up or clean up by helper. Patient completes activity by themselves 4 Supervision or touching assist (CGA). Stella provide cues , steadying assist 3 The helper provides less than half the effort to complete the activity 2 The helper provides more than half the effort to complete the activity 1 Dependent. The helper does all the effort to complete an activity 7 Patient refused to complete or attempt activity 9 The patient did not perform the activity before the current illness or injury 88 Not attempted due to Medical conditions or safety concerns Transfers (B, C, W/C) (FIM): 5 Scootin Rollin Roll Left to Right (QC): 4 Supine to/from Sit: 5 Sit to/from Stand: 5 Sit to Lying (QC): 4 Sit to Stand (QC): 5 Chair/Eqm-xc-Ffqwv Xfer(QC): 4 Bed to/from Chair: 5 Car Transfer (QC): 4 Gait Training Does the Patient Walk?: Yes Gait (FIM): 5 Distance (FIM): 3=150 ft Distance: 150 x2 Walk 10 feet (QC): 5 Walk 50 ft with 2 Turns(QC): 5 Walk 150 ft (QC): 5 Gait Level of Assist: 5 Gait Persons Needed: 1 Gait Assistive Device: FWW Wheelchair Training Does the Pt Use a Wheelchair?: No Stair Training Stairs (FIM): 1 #of Steps: 1 1 Step (curb) (QC): 4 Level of Assist: 4 Mental Status/Objective Comprehension: 7 Expression: 7 Social Interaction: 7 Problem Solvin Memory: 7 ADL-Treatment Feedin Eating (QC): 5 Groomin Oral Hygiene (QC): 4 Bathin Shower/Bathe Self (QC): 3 Upper Extremity Dressin Upper Body Dressing (QC): 5 Lower Extremity Dressin Lower Body Dressing (QC): 4 On/Off Footwear (QC): 3 Toiletin Toileting Hygiene (QC): 4 Toilet/Commode Transfer: 4 (CGA) Toilet Transfer (QC): 4 (CGA) Shower: 5 Assessment/Plan Assessment and Plan Assess & Plan/Chief Complaint Assessment: CO2 narcosis acute on chronic resulting in hallucinations and delusions now resolved after antipsychotic regimen now off meds and doing much better Severe untreated sleep apnea with noncompliance with CPAP Hypertension Hyperlipidemia Arthritis Plan: Dr. Briscoe consultation is appreciated Vent mask option at [place] Check labs prn Monitor closely Bizarre behavior at baseline and it appears to be continuing in inpatient rehabilitation (1) CO2 narcosis Status: Acute (2) Hypokalemia (3) Anemia Status: Acute Qualifiers: Anemia type: unspecified type Qualified Codes: D64.9 - Anemia, unspecified (4) Confusion Status: Acute (5) Delusions Status: Acute (6) Hyperlipidemia Status: Chronic Qualifiers: Hyperlipidemia type: mixed hyperlipidemia Qualified Codes: E78.2 - Mixed hyperlipidemia (7) Leukopenia Status: Acute Qualifiers: Leukopenia type: unspecified Qualified Codes: D72.819 - Decreased white blood cell count, unspecified (8) Hypertension Status: Chronic Qualifiers: Hypertension type: essential hypertension Qualified Codes: I10 - Essential (primary) hypertension (9) DAYANA (obstructive sleep apnea) Status: Chronic (10) Obesity hypoventilation syndrome Status: Chronic (11) Obesity (BMI 30-39.9) Status: Chronic (12) History of ileus Status: Resolved Resolution Date/Time: 07/11/19 @ 10:44 (13) History of right hip replacement Status: Chronic RAMOS CIFUENTES DO Jul 18, 2019 11:39
[2019-07-18] MEDS ORDERED: VENlafaxine XR 75 MG (EFFEXOR XR) CAP PO ONE (14:30)
[2019-07-18 17:13] VITALS: BP 125/81
[2019-07-18] MEDS: NIACIN 500 MG TABLET PO SCH (17:15)
[2019-07-18] MEDS: AMITRIPTYLINE 25 MG (ELAVIL) TAB PO SCH (19:57)
[2019-07-19 05:46] VITALS: BP 106/53
[2019-07-19] MEDS: KCL 20 MEQ TAB (K-DUR) PO SCH ×2 (06:14→16:56)
[2019-07-19] MEDS: MULTIVIT W/MINERALS TAB (THERAGRAN M) PO SCH (06:14)
[2019-07-19] MEDS: TRIAMTERENE/HCTZ 75-50 (MAXZIDE,DYAZIDE) TABLET PO SCH (06:14)
[2019-07-19] MEDS: VENlafaxine XR 75 MG (EFFEXOR XR) CAP PO SCH (06:14)
[2019-07-19] MEDS: ASCORBIC ACID (VIT C) 500 MG TABLET PO SCH (06:14)
[2019-07-19] MEDS: MAGNESIUM OXIDE (MAG-OX)400 MG TAB PO SCH (08:00)
[2019-07-19] MEDS: amLODIPine 5 MG (NORVASC) TAB PO SCH (08:00)
[2019-07-19] MEDS: LACTULOSE SYRUP 10GM/15ML (ENULOSE) 30ML UDC PO SCH ×2 (08:01→21:03)
[2019-07-19] MEDS: meTOprolol TARTRATE 25 MG (LOPRESSOR) TABLET PO SCH ×2 (08:01→20:05)
[2019-07-19] MEDS: lisINopril 40 MG (PRINIVIL) TABLET PO SCH (08:01)
[2019-07-19] MEDS: POLYETHYLENE GLYCOL 17 GM (MIRALAX) PACK PO SCH ×2 (08:01→21:03)
[2019-07-19] MEDS: ASPIRIN 325 MG (5 GR) TABLET PO SCH (08:01)
[2019-07-19] MEDS: SENNA W/DOCUSATE (SENOKOT S) TABLET PO SCH ×2 (08:01→20:05)
[2019-07-19] MEDS: ENOXAPARIN 40 MG/0.4 ML (LOVENOX) SYR SC SCH ×2 (08:02→20:05)
[2019-07-19 08:04] VITALS: BP 148/90
--- NOTE | 2019-07-19 09:44 | PM&R Progress Note ---
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 Bruno in [facility] was sent home the next day began having problems with confusion and altered mental status who then presented to [facility] ER he was placed in observation ultimately sent to [place] for neurology workup which included MRI and spinal tap which all were unrevealing of source and then he was sent home and very rapidly began having more confusion sent [place] ER workup was negative so patient was sent to the senior behavioral unit [facility] last Saturday on 07/07/19 since all the workup was negative including ABG revealing pH is 7.56 CO2 26 and O2 of 92 who I assessed the following morning finding him into respiratory insufficiency when he was still sleeping with severe snoring and apnea ABG revealed pH is 7.2/58/52 confirming my suspicion this was acute on chronic CO2 narcosis due to untreated sleep apnea. He refuses to use a see Pap sheet he has at home and all of this was confirmed with Gabby Henning. Patient was transferred to via [facility] ICU placed on aggressive BiPAP regimen by pulmonology Dr. Briscoe and he improved and was able to go back to the senior behavioral unit on Saturday to work on hallucinations and delusions. He remained stable while in [facility] Haldol was initiated and delirium cleared and he was accepted to inpatient rehabilitation yesterday to complete his treatment and recovery in order to remain independent and go home with his family. Subjective/Events-last exam Pt still talks a lot. Risperdal will be started due to the bizarre thoughts that are definitely psych related He repeats himself a lot. Pt participating in therapies and doing very well. CPAP not managed well at night Checked meds and labs Conferred with RN Reviewed therapy notes Review of Systems General: Fatigue Neurological: Confusion Objective Exam Vital Signs Vital Signs Date Time Temp Pulse Resp B/P (MAP) Pulse Ox O2 Delivery O2 Flow Rate FiO2 07/19/19 09:01 Nasal Cannula 2.00 07/19/19 08:04 85 18 148/90 (109) 95 07/19/19 05:46 36.4 Capillary Refill : General Appearance: No Apparent Distress, WD/WN, Chronically ill, Obese HEENT: PERRL/EOMI, Normal ENT Inspection, Pharynx Normal, Moist Mucous Membranes Neck: Full Range of Motion, Normal Inspection, Non Tender, Supple Respiratory: Chest Non Tender, Lungs Clear, Normal Breath Sounds, No Accessory Muscle Use, No Respiratory Distress Cardiovascular: Regular Rate, Rhythm, No Edema, No Gallop, No JVD, No Murmur Gastrointestinal: Normal Bowel Sounds, No Organomegaly, No Pulsatile Mass, Non Tender, Soft Back: Normal Inspection, No CVA Tenderness, No Vertebral Tenderness Extremity: Normal Capillary Refill, Normal Inspection, Normal Range of Motion, Non Tender, No Calf Tenderness, No Pedal Edema Neurologic/Psychiatric: Alert, Oriented x3, No Motor/Sensory Deficits, Normal Mood/Affect, dermatology nurse practitioner II-XII Norm as Tested, Disoriented (subtle), Motor Weakness (generalized all extremities) Skin: Normal Color, Warm/Dry Lymphatic: No Adenopathy Results/Procedures Lab Patient resulted labs reviewed. FIM Transfers Therapy Code Descriptions/Definitions Functional [place] Measure: 0=Not Assessed/NA 4=Minimal Assistance 1=Total Assistance 5=Supervision or Setup 2=Maximal Assistance 6=Modified [place] 3=Moderate Assistance 7=Complete [place] Therapy Quality Codes: 6 Independent with activity with or without an assistive device 5 Patient requires set up or clean up by helper. Patient completes activity by themselves 4 Supervision or touching assist (CGA). [place] provide cues , steadying assist 3 The helper provides less than half the effort to complete the activity 2 The helper provides more than half the effort to complete the activity 1 Dependent. The helper does all the effort to complete an activity 7 Patient refused to complete or attempt activity 9 The patient did not perform the activity before the current illness or injury 88 Not attempted due to Medical conditions or safety concerns Transfers (B, C, W/C) (FIM): 5 Scootin Rollin Roll Left to Right (QC): 4 Supine to/from Sit: 5 Sit to/from Stand: 5 Sit to Lying (QC): 4 Sit to Stand (QC): 5 Chair/Mlt-rf-Mghfu Xfer(QC): 4 Bed to/from Chair: 5 Car Transfer (QC): 4 Gait Training Does the Patient Walk?: Yes Gait (FIM): 5 Distance (FIM): 3=150 ft Distance: 150 x2 Walk 10 feet (QC): 5 Walk 50 ft with 2 Turns(QC): 5 Walk 150 ft (QC): 5 Gait Level of Assist: 5 Gait Persons Needed: 1 Gait Assistive Device: FWW Wheelchair Training Does the Pt Use a Wheelchair?: No Stair Training Stairs (FIM): 1 #of Steps: 1 1 Step (curb) (QC): 4 Level of Assist: 4 Mental Status/Objective Comprehension: 7 Expression: 7 Social Interaction: 7 Problem Solvin Memory: 7 ADL-Treatment Feedin Eating (QC): 5 Groomin Oral Hygiene (QC): 4 Bathin Shower/Bathe Self (QC): 3 Upper Extremity Dressin Upper Body Dressing (QC): 5 Lower Extremity Dressin Lower Body Dressing (QC): 4 On/Off Footwear (QC): 3 Toiletin Toileting Hygiene (QC): 4 Toilet/Commode Transfer: 4 (CGA) Toilet Transfer (QC): 4 (CGA) Shower: 5 Assessment/Plan Assessment and Plan Assess & Plan/Chief Complaint Assessment: CO2 narcosis acute on chronic resulting in hallucinations and delusions now resolved after antipsychotic regimen now off meds and doing much better Severe untreated sleep apnea with noncompliance with CPAP Hypertension Hyperlipidemia Arthritis Plan: Dr. Briscoe consultation is appreciated Vent mask option at [place] Check labs prn Monitor closely Bizarre behavior at baseline and it appears to be continuing in inpatient rehabilitation so start low dose Risperdal (1) CO2 narcosis Status: Acute (2) Hypokalemia (3) Anemia Status: Acute Qualifiers: Anemia type: unspecified type Qualified Codes: D64.9 - Anemia, unspecified (4) Confusion Status: Acute (5) Delusions Status: Acute (6) Hyperlipidemia Status: Chronic Qualifiers: Hyperlipidemia type: mixed hyperlipidemia Qualified Codes: E78.2 - Mixed hyperlipidemia (7) Leukopenia Status: Acute Qualifiers: Leukopenia type: unspecified Qualified Codes: D72.819 - Decreased white blood cell count, unspecified (8) Hypertension Status: Chronic Qualifiers: Hypertension type: essential hypertension Qualified Codes: I10 - Essential (primary) hypertension (9) DAYANA (obstructive sleep apnea) Status: Chronic (10) Obesity hypoventilation syndrome Status: Chronic (11) Obesity (BMI 30-39.9) Status: Chronic (12) History of ileus Status: Resolved Resolution Date/Time: 07/11/19 @ 10:44 (13) History of right hip replacement Status: Chronic RAMOS CIFUENTES DO Jul 19, 2019 09:44
[2019-07-19] MEDS: risperiDONE 0.25 MG (RisperDAL) TAB PO SCH ×2 (10:31→20:05)
[2019-07-19] MEDS: NIACIN 500 MG TABLET PO SCH (16:57)
[2019-07-19 17:01] VITALS: BP 168/81
[2019-07-19] MEDS: AMITRIPTYLINE 25 MG (ELAVIL) TAB PO SCH (20:05)
[2019-07-20 05:00] LABS: BASOPHILS % (AUTO) 1 % (0-10); EOSINOPHILS # (AUTO) 0.1 10^3/uL (0.0-0.3); EOSINOPHILS % (AUTO) 4 % (0-10); HEMATOCRIT 39 % (40-54); HEMOGLOBIN 12.4 G/DL (13.3-17.7); LYMPHOCYTES # (AUTO) 1.1 X 10^3 (1.0-4.0); LYMPHOCYTES % (AUTO) 32 % (12-44); MEAN CORPUSCULAR HEMOGLOBIN 30 PG (25-34); MEAN CORPUSCULAR HGB CONC 32 G/DL (32-36); MEAN CORPUSCULAR VOLUME 94 FL (80-99); MEAN PLATELET VOLUME 10.6 FL (7.4-10.4); MONOCYTES # (AUTO) 0.4 X 10^3 (0.0-1.0); MONOCYTES % (AUTO) 12 % (0-12); NEUTROPHILS # (AUTO) 1.7 X 10^3 (1.8-7.8); NEUTROPHILS % (AUTO) 52 % (42-75); PLATELET COUNT 264 10^3/uL (130-400); RED CELL DISTRIBUTION WIDTH 13.5 % (10.0-14.5); WHITE BLOOD COUNT 3.3 10^3/uL (4.3-11.0)
[2019-07-20 05:04] VITALS: BP 149/82
[2019-07-20 05:17] LABS: ALANINE AMINOTRANSFERASE 29 U/L (0-55); ALBUMIN 3.6 GM/DL (3.2-4.5); ALKALINE PHOSPHATASE 57 U/L (40-136); BILIRUBIN,TOTAL 0.3 MG/DL (0.1-1.0); BUN/CREATININE RATIO 15; CARBON DIOXIDE 29 MMOL/L (21-32); CHLORIDE 98 MMOL/L (98-107); CREATININE SERUM 0.78 MG/DL (0.60-1.30); GFR ESTIMATED > 60; GLUCOSE 93 MG/DL (70-105); POTASSIUM 3.7 MMOL/L (3.6-5.0); SODIUM 137 MMOL/L (135-145); TOTAL PROTEIN 7.3 GM/DL (6.4-8.2)
[2019-07-20] MEDS: ASCORBIC ACID (VIT C) 500 MG TABLET PO SCH (06:02)
[2019-07-20] MEDS: TRIAMTERENE/HCTZ 75-50 (MAXZIDE,DYAZIDE) TABLET PO SCH (06:02)
[2019-07-20] MEDS: MULTIVIT W/MINERALS TAB (THERAGRAN M) PO SCH (06:02)
[2019-07-20] MEDS: KCL 20 MEQ TAB (K-DUR) PO SCH ×2 (06:02→17:23)
[2019-07-20] MEDS: VENlafaxine XR 75 MG (EFFEXOR XR) CAP PO SCH (06:02)
--- NOTE | 2019-07-20 08:57 | Physical Therapy Daily Note ---
PT Daily Note-Current Subjective Patient in recliner pre tx, agrees to PT, has no complaints of pain. Appearance Patient in recliner post tx with nurse call, phone, tray, all needs met, chair alarm on. Mental Status Patient Orientation: Person, Confused, Place Attachments: Oxygen Transfers Therapy Code Descriptions/Definitions Functional [place] Measure: 0=Not Assessed/NA 4=Minimal Assistance 1=Total Assistance 5=Supervision or Setup 2=Maximal Assistance 6=Modified [place] 3=Moderate Assistance 7=Complete [place] Therapy Quality Codes: 6 Independent with activity with or without an assistive device 5 Patient requires set up or clean up by helper. Patient completes activity by themselves 4 Supervision or touching assist (CGA). [place] provide cues , steadying assist 3 The helper provides less than half the effort to complete the activity 2 The helper provides more than half the effort to complete the activity 1 Dependent. The helper does all the effort to complete an activity 7 Patient refused to complete or attempt activity 9 The patient did not perform the activity before the current illness or injury 88 Not attempted due to Medical conditions or safety concerns Transfers (B, C, W/C) (FIM): 6 Scootin Rollin Roll Left to Right (QC): 6 Supine to/from Sit: 6 Sit to/from Stand: 6 Sit to Lying (QC): 6 Sit to Stand (QC): 6 Chair/Tst-fz-Jmtps Xfer(QC): 6 Bed to/from Chair: 6 Car Transfer (QC): 4 Patient performs bed mobility with mod I, supine <-> sit mod I, sit <-> stand mod I, transfers mod I, car transfer SBA. Gait Training Gait (FIM): 5 Distance: 300', 150' Walk 10 feet (QC): 4 Walk 50 ft with 2 Turns(QC): 4 Walk 150 ft (QC): 4 Walking 10ft/uneven surface-QC: 4 Gait Level of Assist: 5 Gait Persons Needed: 1 Gait Assistive Device: FWW Patient can ambulate 300' with a rolling walker with SBA (including 50' with at least 2 turns of 90 degrees and 10' over an uneven surface). Wheelchair Training Does the Pt Use a Wheelchair?: No Stair Training Stair Training: Handrails/: 2 handrails Stairs (FIM): 5 #of Steps: 12 1 Step (curb) (QC): 4 4 Steps (QC): 4 12 Steps (QC): 4 Stairs: Pattern: Step to Level of Assist: 5 Exercises Seated Therapy Exercises: Ankle pumps, Long arc quads (alternating for 5 min), Hip flexion, Hip abd/add (with RTB and pillow) Seated Reps: 20 NuStep Minutes: 15 NuStep Workload: 5 Treatments bed mobility and transfers, ambulation, stairs, LE exercise Assessment Current Status: Fair Progress improving endurance, no SOB PT Short Term Goals Short Term Goals Time Frame: Jul 22, 2019 Gait (FIM): 5 Gait Distance Comment: 200' Gait Level of Assist: 5 Gait Assistive Device: FWW PT Traffic Court Magistrate Goals Retirement Goals PT Retirement Goals Time Frame: Aug 05, 2019 Transfers (B,C,W/C) (FIM): 6 Sit to Lying (QC): 6 Lying-Sitting on Side/Bed(QC): 6 Sit to Stand (QC): 6 Rollin Roll Left to Right (QC): 6 Chair/Yiu-ny-Wonqm Xfer(QC): 6 Car Transfer (QC): 6 Gait (FIM): 6 Distance: 300' Walk 10 feet (QC): 6 Walk 10ft-Uneven Surface(QC): 6 Walk 50ft with 2 Turns (QC): 6 Walk 150 ft (QC): 6 Gait Level of Assist: 6 Gait Assistive Device: FWW Stairs (FIM): 2 # of Steps: 4 1 Step (curb) (QC): 4 4 Steps (QC): 4 Stairs Level Of Assist: 5 PT Plan Problem List Problem List: Activity Tolerance, Functional Strength, Safety, Balance, Gait, Transfer Treatment/Plan Treatment Plan: Continue Plan of Care Treatment Plan: Bed Mobility, Education, Functional Activity Shayy, Functional Strength, Group Therapy, Gait, Safety, Therapeutic Exercise, Transfers Treatment Duration: Aug 05, 2019 Frequency: At least 5 of 7 days/Wk (IRF) Estimated Hrs Per Day: 1.5 hours per day Patient and/or Family Agrees t: Yes Safety Risks/Education Patient Education: Gait Training, Transfer Techniques, Steps, Correct Positioning, Safety Issues Teaching Recipient: Patient Teaching Methods: Demonstration, Discussion Response to Teaching: Reinforcement Needed Time/GCodes Time In: 0800 Time Out: 0900 Total Billed Treatment Time: 60 Total Billed Treatment 1 visit EX 40' GT 20' ROBERTA TELLES PT Jul 20, 2019 08:57
--- NOTE | 2019-07-20 09:00 | PM&R Progress Note ---
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 Bruno in [facility] was sent home the next day began having problems with confusion and altered mental status who then presented to [facility] ER he was placed in observation ultimately sent to [place] for neurology workup which included MRI and spinal tap which all were unrevealing of source and then he was sent home and very rapidly began having more confusion sent [facility] ER workup was negative so patient was sent to the senior behavioral unit [facility] last Saturday on 07/07/19 since all the workup was negative including ABG revealing pH is 7.56 CO2 26 and O2 of 92 who I assessed the following morning finding him into respiratory insufficiency when he was still sleeping with severe snoring and apnea ABG revealed pH is 7.2/58/52 confirming my suspicion this was acute on chronic CO2 narcosis due to untreated sleep apnea. He refuses to use a see Pap sheet he has at home and all of this was confirmed with Gabby Henning. Patient was transferred to via [facility] ICU placed on aggressive BiPAP regimen by pulmonology Dr. Briscoe and he improved and was able to go back to the senior behavioral unit on Saturday to work on hallucinations and delusions. He remained stable while in [facility] Haldol was initiated and delirium cleared and he was accepted to inpatient rehabilitation yesterday to complete his treatment and recovery in order to remain independent and go home with his family. Subjective/Events-last exam Pt still talks a lot and sometimes doesn't make a lot of sense. Risperdal started due to the bizarre thoughts that are definitely psych related and nursing staff reached out to PCP office and they said he just had a pretty flat affect but otherwise no major bizarre behavior that they noted He repeats himself a lot. Pt participating in therapies and doing very well from a physical standpoint CPAP managed well at night Checked meds and labs Conferred with ESTHER Reviewed therapy notes Review of Systems General: Fatigue Neurological: Confusion Objective Exam Vital Signs Vital Signs Date Time Temp Pulse Resp B/P (MAP) Pulse Ox O2 Delivery O2 Flow Rate FiO2 07/20/19 05:04 37.1 80 18 149/82 (104) 93 Nasal Cannula 2.00 Capillary Refill : General Appearance: No Apparent Distress, WD/WN, Chronically ill, Obese HEENT: PERRL/EOMI, Normal ENT Inspection, Pharynx Normal, Moist Mucous Membranes Neck: Full Range of Motion, Normal Inspection, Non Tender, Supple Respiratory: Chest Non Tender, Lungs Clear, Normal Breath Sounds, No Accessory Muscle Use, No Respiratory Distress Cardiovascular: Regular Rate, Rhythm, No Edema, No Gallop, No JVD, No Murmur Gastrointestinal: Normal Bowel Sounds, No Organomegaly, No Pulsatile Mass, Non Tender, Soft Back: Normal Inspection, No CVA Tenderness, No Vertebral Tenderness Extremity: Normal Capillary Refill, Normal Inspection, Normal Range of Motion, Non Tender, No Calf Tenderness, No Pedal Edema Neurologic/Psychiatric: Alert, Oriented x3, No Motor/Sensory Deficits, Normal Mood/Affect, can patcher II-XII Norm as Tested, Disoriented (subtle), Motor Weakness (generalized all extremities) Skin: Normal Color, Warm/Dry Lymphatic: No Adenopathy Results/Procedures Lab Laboratory Tests 07/20/19 04:22 07/20/19 04:27 Patient resulted labs reviewed. FIM Transfers Therapy Code Descriptions/Definitions Functional [place] Measure: 0=Not Assessed/NA 4=Minimal Assistance 1=Total Assistance 5=Supervision or Setup 2=Maximal Assistance 6=Modified [place] 3=Moderate Assistance 7=Complete [place] Therapy Quality Codes: 6 Independent with activity with or without an assistive device 5 Patient requires set up or clean up by helper. Patient completes activity by themselves 4 Supervision or touching assist (CGA). [place] provide cues , steadying assist 3 The helper provides less than half the effort to complete the activity 2 The helper provides more than half the effort to complete the activity 1 Dependent. The helper does all the effort to complete an activity 7 Patient refused to complete or attempt activity 9 The patient did not perform the activity before the current illness or injury 88 Not attempted due to Medical conditions or safety concerns Transfers (B, C, W/C) (FIM): 6 Scootin Rollin Roll Left to Right (QC): 6 Supine to/from Sit: 6 Sit to/from Stand: 6 Sit to Lying (QC): 6 Sit to Stand (QC): 6 Chair/Qsw-ig-Okrvq Xfer(QC): 6 Bed to/from Chair: 6 Car Transfer (QC): 4 Gait Training Does the Patient Walk?: Yes Gait (FIM): 5 Distance (FIM): 3=150 ft Distance: 300', 150' Walk 10 feet (QC): 4 Walk 50 ft with 2 Turns(QC): 4 Walk 150 ft (QC): 4 Walking 10ft/uneven surface-QC: 4 Gait Level of Assist: 5 Gait Persons Needed: 1 Gait Assistive Device: FWW Wheelchair Training Does the Pt Use a Wheelchair?: No Stair Training Stair Training: Handrails/: 2 handrails Stairs (FIM): 5 #of Steps: 12 1 Step (curb) (QC): 4 4 Steps (QC): 4 12 Steps (QC): 4 Stairs: Pattern: Step to Level of Assist: 5 Mental Status/Objective Comprehension: 7 Expression: 7 Social Interaction: 7 Problem Solvin Memory: 7 ADL-Treatment Feedin Eating (QC): 5 Groomin Oral Hygiene (QC): 4 Bathin Shower/Bathe Self (QC): 3 Upper Extremity Dressin Upper Body Dressing (QC): 5 Lower Extremity Dressin Lower Body Dressing (QC): 4 On/Off Footwear (QC): 3 Toiletin Toileting Hygiene (QC): 4 Toilet/Commode Transfer: 4 (CGA) Toilet Transfer (QC): 4 (CGA) Shower: 5 Assessment/Plan Assessment and Plan Assess & Plan/Chief Complaint Assessment: CO2 narcosis acute on chronic resulting in hallucinations and delusions now resolved after antipsychotic regimen now off meds and doing much better the placed back on Risperdal due to bizarre behavior consulting psych Severe untreated sleep apnea with noncompliance with CPAP Hypertension Hyperlipidemia Arthritis Plan: Dr. Briscoe consultation is appreciated Vent mask option at [place] Check labs prn Monitor closely Bizarre behavior at baseline and it appears to be continuing in inpatient rehabilitation so start low dose Risperdal and consulting behavioral health (1) CO2 narcosis Status: Acute (2) Hypokalemia (3) Anemia Status: Acute Qualifiers: Anemia type: unspecified type Qualified Codes: D64.9 - Anemia, unspecified (4) Confusion Status: Acute (5) Delusions Status: Acute (6) Hyperlipidemia Status: Chronic Qualifiers: Hyperlipidemia type: mixed hyperlipidemia Qualified Codes: E78.2 - Mixed hyperlipidemia (7) Leukopenia Status: Acute Qualifiers: Leukopenia type: unspecified Qualified Codes: D72.819 - Decreased white blood cell count, unspecified (8) Hypertension Status: Chronic Qualifiers: Hypertension type: essential hypertension Qualified Codes: I10 - Essential (primary) hypertension (9) DAYANA (obstructive sleep apnea) Status: Chronic (10) Obesity hypoventilation syndrome Status: Chronic (11) Obesity (BMI 30-39.9) Status: Chronic (12) History of ileus Status: Resolved Resolution Date/Time: 07/11/19 @ 10:44 (13) History of right hip replacement Status: Chronic RAMOS CIFUENTES DO Jul 20, 2019 09:00
--- NOTE | 2019-07-20 09:39 | NUR ---
provided prayer and Communion.
[2019-07-20] MEDS: amLODIPine 5 MG (NORVASC) TAB PO SCH (10:40)
[2019-07-20] MEDS: FLUTICASONE NASAL SPRAY (FLONASE) 16 GM BTL NS SCH (10:40)
[2019-07-20] MEDS: ASPIRIN 325 MG (5 GR) TABLET PO SCH (10:40)
[2019-07-20] MEDS: MAGNESIUM OXIDE (MAG-OX)400 MG TAB PO SCH (10:40)
[2019-07-20] MEDS: SENNA W/DOCUSATE (SENOKOT S) TABLET PO SCH ×2 (10:41→20:24)
[2019-07-20] MEDS: lisINopril 40 MG (PRINIVIL) TABLET PO SCH (10:41)
[2019-07-20] MEDS: meTOprolol TARTRATE 25 MG (LOPRESSOR) TABLET PO SCH ×2 (10:41→20:22)
[2019-07-20] MEDS: risperiDONE 0.25 MG (RisperDAL) TAB PO SCH ×2 (10:41→20:22)
[2019-07-20] MEDS: POLYETHYLENE GLYCOL 17 GM (MIRALAX) PACK PO SCH ×2 (11:09→20:25)
[2019-07-20] MEDS: LACTULOSE SYRUP 10GM/15ML (ENULOSE) 30ML UDC PO SCH ×2 (11:09→20:24)
[2019-07-20] MEDS: ENOXAPARIN 40 MG/0.4 ML (LOVENOX) SYR SC SCH ×2 (11:09→20:25)
--- NOTE | 2019-07-20 12:23 | Occupational Ther Daily Note ---
OT Current Status-Daily Note Subjective No pain reported. Appearance Pt. up in chair. States that he has a good shower yesterday. Declines showering today. Agrees to work with OT. Mental Status/Objective Patient Orientation: Unable to Assess Therapy Code Descriptions/Definitions Functional [place] Measure: 0=Not Assessed/NA 4=Minimal Assistance 1=Total Assistance 5=Supervision or Setup 2=Maximal Assistance 6=Modified [place] 3=Moderate Assistance 7=Complete [place] Pt. has difficulty staying on task. Will often start to talk about something, and will veer off into another topic and talk about that. Requires cues for re- direction. ADL-Treatment Therapy Code Descriptions/Definitions Functional [place] Measure: 0=Not Assessed/NA 4=Minimal Assistance 1=Total Assistance 5=Supervision or Setup 2=Maximal Assistance 6=Modified [place] 3=Moderate Assistance 7=Complete [place] Therapy Quality Codes: 6 Independent with activity with or without an assistive device 5 Patient requires set up or clean up by helper. Patient completes activity by themselves 4 Supervision or touching assist (CGA). [place] provide cues , steadying assist 3 The helper provides less than half the effort to complete the activity 2 The helper provides more than half the effort to complete the activity 1 Dependent. The helper does all the effort to complete an activity 7 Patient refused to complete or attempt activity 9 The patient did not perform the activity before the current illness or injury 88 Not attempted due to Medical conditions or safety concerns Lower Body Dressing (FIM): 5 (SBA with slipper socks.) Lower Body Dressing (QC): 4 On/Off Footwear (QC): 4 Toileting (FIM): 5 Toileting Hygiene (QC): 4 Transfers (B, C, W/C) (FIM): 5 Pt. already dressed, but agrees to show this therapist how he doffs/dons slipper socks. Pt. able to doff socks while seated, but requires sock aide to don right sock. Ambulated to therapy gym with SBA. Pt. without oxygen and sats taken throughout session. They were 92-96%, with activity. Pt. completed arm bike x 15 minutes at slow pace with cues to continue the task. Pt. took many rest breaks and would stop when talking. Worked on this for increased overall strength and independence. Pt. participated in several visual perceptual tasks with cues to focus on the task itself. Pt. able to complete each task with increased time and cues for re-direction. Completed fine motor task that incorporated following directions, sequencing, and attention. Pt. able to complete the task with increased overall cues to stay on task, and to not become distracted. Pt. often talks about how he needs things to be perfect, but in talking, forgets to do the task. Ambulated back to room with SBA. All needs met. Education OT Patient Education: Correct positioning, Modified ADL techniques, Progress toward Goal/Update tx plan, Purpose of tx/functional activities, Reviewed precautions, Rehab process, Transfer techniques Teaching Recipient: Patient Teaching Methods: Demonstration, Discussion Response to Teaching: Verbalize Understanding, Return Demonstration, Reinforcement Needed OT Short Term Goals Short Term Goals Time Frame: Jul 22, 2019 Upper Body Dressing(FIM): 5 Lower Body Dressing(FIM): 5 Toileting(FIM): 5 Toilet/Commode Transfer(FIM): 5 Additional Short Term Goals: 1-Demonstrate ADL Tasks, 2-Verbalize Understanding, 3-ImproveStrength/Shayy 1=Demonstrate adherence to instructed precautions during ADL tasks. 2=Patient will verbalize/demonstrate understanding of assistive devices/modifications for ADL. 3=Patient will improve strength/tolerance for activity to enable patient to perform ADL's. OT Carding Supervisor Goals Fpc Goals Time Frame: Aug 05, 2019 Eating (FIM): 6 Eating (QC): 6 Groomin Oral Hygiene (QC): 6 Bathing(FIM): 5 Shower/Bathe Self (QC): 5 Upper Body Dressing(FIM): 6 Upper Body Dressing (QC): 6 Lower Body Dressing(FIM): 6 Lower Body Dressing (QC): 6 On/Off Footwear (QC): 6 Toileting(FIM): 6 Toileting Hygiene (QC): 6 Toilet/Commode Transfer(FIM): 6 Toilet/Commode Transfer (QC): 6 Shower Transfer(FIM): 5 Additional Goals: 1-Demonstrate ADL Tasks, 2-Verbalize Understanding, 3- ImproveStrength/Shayy 1=Demonstrate adherence to instructed precautions during ADL tasks. 2=Patient will verbalize/demonstrate understanding of assistive devices/modifications for ADL. 3=Patient will improve strength/tolerance for activity to enable patient to perform ADL's. OT Education/Plan Problem List/Assessment Assessment: Decreased Activ Tolerance, Impaired Cognition, Impaired I ADL's, Impaired Self-Care Skills Discharge Recommendations Plan/Recommendations: Continue POC Therapy Discharge Recommendati: Post Acute OT Treatment Plan/Plan of Care Treatment,Training & Education: Yes Patient would benefit from OT for education, treatment and training to promote independence in ADL's, mobility, safety and/or upper extremity function for ADL's. Plan of Care: ADL Retraining, Functional Mobility, Group Exercise/Act as Ind, UE Funct Exercise/Act Treatment Duration: Aug 05, 2019 Frequency: At least 5 of 7 days/Wk (IRF) Estimated Hrs Per Day: 1.5 hours per day Agreement: Yes Rehab Potential: Fair Time/GCodes Start Time: 09:30 Stop Time: 11:00 Total Time Billed (hr/min): 90 Billed Treatment Time 1, ADL x 30minutes, FA x 60minutes GAIL VELA OT Jul 20, 2019 12:23
--- NOTE | 2019-07-20 13:16 | Physical Therapy Daily Note ---
PT Daily Note-Current Subjective Agrees to PT. Happy to go outside. Transfers Therapy Code Descriptions/Definitions Functional [place] Measure: 0=Not Assessed/NA 4=Minimal Assistance 1=Total Assistance 5=Supervision or Setup 2=Maximal Assistance 6=Modified [place] 3=Moderate Assistance 7=Complete [place] Therapy Quality Codes: 6 Independent with activity with or without an assistive device 5 Patient requires set up or clean up by helper. Patient completes activity by themselves 4 Supervision or touching assist (CGA). [place] provide cues , steadying assist 3 The helper provides less than half the effort to complete the activity 2 The helper provides more than half the effort to complete the activity 1 Dependent. The helper does all the effort to complete an activity 7 Patient refused to complete or attempt activity 9 The patient did not perform the activity before the current illness or injury 88 Not attempted due to Medical conditions or safety concerns sit to stand from varied surfaces (recliner, park bench, yard chair) all with SBA. Gait Training Pt ambulated x >500 ft with FWW on indoor and outdoor surfaces to include a boardwalk, sidewalk, slope, threshholds all with SBA. Skilled cues for safety. Assessment Current Status: Good Progress Safe functional gait and transfers on a variety of surfaces and areas. PT Short Term Goals Short Term Goals Time Frame: Jul 22, 2019 Gait (FIM): 5 (met) Gait Distance Comment: 200' Gait Level of Assist: 5 Gait Assistive Device: FWW PT Rubber Heel And Sole Press Tender Goals Assisted Goals PT Assisted Goals Time Frame: Aug 05, 2019 Transfers (B,C,W/C) (FIM): 6 Sit to Lying (QC): 6 Lying-Sitting on Side/Bed(QC): 6 Sit to Stand (QC): 6 Rollin Roll Left to Right (QC): 6 Chair/Zzs-wn-Cxvgv Xfer(QC): 6 Car Transfer (QC): 6 Gait (FIM): 6 Distance: 300' Walk 10 feet (QC): 6 Walk 10ft-Uneven Surface(QC): 6 Walk 50ft with 2 Turns (QC): 6 Walk 150 ft (QC): 6 Gait Level of Assist: 6 Gait Assistive Device: FWW Stairs (FIM): 2 # of Steps: 4 1 Step (curb) (QC): 4 4 Steps (QC): 4 Stairs Level Of Assist: 5 PT Plan Problem List Problem List: Activity Tolerance, Functional Strength, Safety, Balance, Gait, Transfer Treatment/Plan Treatment Plan: Continue Plan of Care Treatment Plan: Bed Mobility, Education, Functional Activity Shayy, Functional Strength, Group Therapy, Gait, Safety, Therapeutic Exercise, Transfers Treatment Duration: Aug 05, 2019 Frequency: At least 5 of 7 days/Wk (IRF) Estimated Hrs Per Day: 1.5 hours per day Patient and/or Family Agrees t: Yes Safety Risks/Education Patient Education: Safety Issues Teaching Recipient: Patient Teaching Methods: Discussion Response to Teaching: Reinforcement Needed Time/GCodes Time In: 1240 Time Out: 1311 Total Billed Treatment Time: 31 Total Billed Treatment visit GT 31 SKYE FELIX PT Jul 20, 2019 13:16
[2019-07-20] MEDS ORDERED: SALINE NASAL SPRAY (OCEAN) 45 ML BTL PRN (15:00)
[2019-07-20] MEDS: NIACIN 500 MG TABLET PO SCH (17:23)
[2019-07-20 17:39] VITALS: BP 144/83
[2019-07-20] MEDS: MELATONIN 3 MG TABLET PO PRN (20:24)
[2019-07-20] MEDS: AMITRIPTYLINE 25 MG (ELAVIL) TAB PO SCH (20:24)
--- NOTE | 2019-07-20 21:00 | NUR ---
The patient is A/O to person, place, time, and situation. However, he sometimes doesn't make a lot of sense, occasionally expresses bizarre thoughts during conversation. Persistent focus on his weight, he repeatedly states "I need to know how much weight I've gained, I've lost 65 pounds". This RN weighted patient using bed scale 273 lb (124.1 kg), this value was reported to him. Patient reported I've lost 3 pounds, but then he says "I'm gaining weight, this is why I need new shorts in the first place". Pt states he feels better now that he knows his weight. The patient is cooperative and speech is clear. Physician's progress notes reviewed: pt was displaying similar behavior during morning examination. Will continue to monitor.
[2019-07-21 05:11] VITALS: BP 134/72
[2019-07-21] MEDS: MULTIVIT W/MINERALS TAB (THERAGRAN M) PO SCH (06:12)
[2019-07-21] MEDS: TRIAMTERENE/HCTZ 75-50 (MAXZIDE,DYAZIDE) TABLET PO SCH (06:12)
[2019-07-21] MEDS: ASCORBIC ACID (VIT C) 500 MG TABLET PO SCH (06:12)
[2019-07-21] MEDS: KCL 20 MEQ TAB (K-DUR) PO SCH ×2 (06:12→16:42)
[2019-07-21] MEDS: VENlafaxine XR 75 MG (EFFEXOR XR) CAP PO SCH (06:12)
[2019-07-21 08:00] VITALS: BP 150/97
--- NOTE | 2019-07-21 08:00 | NUR ---
DENIES PAIN. ROOM AIR 95% ON ROOM AIR. DR. EATON HERE TO SEE PATIENT.
[2019-07-21] MEDS: MAGNESIUM OXIDE (MAG-OX)400 MG TAB PO SCH (08:51)
[2019-07-21] MEDS: lisINopril 40 MG (PRINIVIL) TABLET PO SCH (08:52)
[2019-07-21] MEDS: meTOprolol TARTRATE 25 MG (LOPRESSOR) TABLET PO SCH ×2 (08:52→20:23)
[2019-07-21] MEDS: amLODIPine 5 MG (NORVASC) TAB PO SCH (08:52)
[2019-07-21] MEDS: SENNA W/DOCUSATE (SENOKOT S) TABLET PO SCH ×2 (08:53→20:23)
[2019-07-21] MEDS: risperiDONE 0.25 MG (RisperDAL) TAB PO SCH ×3 (08:53→20:23)
--- NOTE | 2019-07-21 08:54 | Physical Therapy Daily Note ---
PT Daily Note-Current Subjective Patient in recliner pre tx, agrees to PT, no complaints of pain, displays bizarre behavior worse today than usual. Patient had to use the bathroom twice and did so with SBA. Patient states he is very tired today. Appearance Patient in recliner post tx with nurse call, phone, tray, all needs met. Mental Status Patient Orientation: Person, Confused, Place No O2 today and sats stayed at 90-92% Transfers Therapy Code Descriptions/Definitions Functional [place] Measure: 0=Not Assessed/NA 4=Minimal Assistance 1=Total Assistance 5=Supervision or Setup 2=Maximal Assistance 6=Modified [place] 3=Moderate Assistance 7=Complete [place] Therapy Quality Codes: 6 Independent with activity with or without an assistive device 5 Patient requires set up or clean up by helper. Patient completes activity by themselves 4 Supervision or touching assist (CGA). [place] provide cues , steadying assist 3 The helper provides less than half the effort to complete the activity 2 The helper provides more than half the effort to complete the activity 1 Dependent. The helper does all the effort to complete an activity 7 Patient refused to complete or attempt activity 9 The patient did not perform the activity before the current illness or injury 88 Not attempted due to Medical conditions or safety concerns Transfers (B, C, W/C) (FIM): 6 Sit to/from Stand: 6 Bed to/from Chair: 6 Gait Training Gait (FIM): 5 Distance: 200', 150'x2 Gait Level of Assist: 5 Gait Persons Needed: 1 Gait Assistive Device: FWW slow but steady ambulation Exercises sit to stand 2 sets of 10 NuStep Minutes: 15 NuStep Workload: 5 Treatments toileting, ambulation, transfers, LE exercise Assessment Current Status: Fair Progress slowly improving endurance and LE strength but abnormal behavior does not seem to be getting any better PT Short Term Goals Short Term Goals Time Frame: Jul 22, 2019 Gait (FIM): 5 (met) Gait Distance Comment: 200' Gait Level of Assist: 5 Gait Assistive Device: FWW PT [place] Observer Helper Goals Shelter Goals PT [place] Observer Helper Goals Time Frame: Aug 05, 2019 Transfers (B,C,W/C) (FIM): 6 Sit to Lying (QC): 6 Lying-Sitting on Side/Bed(QC): 6 Sit to Stand (QC): 6 Rollin Roll Left to Right (QC): 6 Chair/Ccl-dq-Muzqc Xfer(QC): 6 Car Transfer (QC): 6 Gait (FIM): 6 Distance: 300' Walk 10 feet (QC): 6 Walk 10ft-Uneven Surface(QC): 6 Walk 50ft with 2 Turns (QC): 6 Walk 150 ft (QC): 6 Gait Level of Assist: 6 Gait Assistive Device: FWW Stairs (FIM): 2 # of Steps: 4 1 Step (curb) (QC): 4 4 Steps (QC): 4 Stairs Level Of Assist: 5 PT Plan Problem List Problem List: Activity Tolerance, Functional Strength, Safety, Balance, Gait, Transfer Treatment/Plan Treatment Plan: Continue Plan of Care Treatment Plan: Bed Mobility, Education, Functional Activity Shayy, Functional Strength, Group Therapy, Gait, Safety, Therapeutic Exercise, Transfers Treatment Duration: Aug 05, 2019 Frequency: At least 5 of 7 days/Wk (IRF) Estimated Hrs Per Day: 1.5 hours per day Patient and/or Family Agrees t: Yes Safety Risks/Education Patient Education: Gait Training, Transfer Techniques, Correct Positioning, Safety Issues Teaching Recipient: Patient Teaching Methods: Demonstration, Discussion Response to Teaching: Reinforcement Needed Time/GCodes Time In: 0800 Time Out: 0900 Total Billed Treatment Time: 60 Total Billed Treatment 1 visit FA 15' EX 20' GT 25' ROBERTA TELLES PT Jul 21, 2019 08:54
[2019-07-21] MEDS: ASPIRIN 325 MG (5 GR) TABLET PO SCH (08:55)
[2019-07-21] MEDS: FLUTICASONE NASAL SPRAY (FLONASE) 16 GM BTL NS SCH (08:55)
[2019-07-21] MEDS: POLYETHYLENE GLYCOL 17 GM (MIRALAX) PACK PO SCH ×2 (08:56→20:23)
[2019-07-21] MEDS: LACTULOSE SYRUP 10GM/15ML (ENULOSE) 30ML UDC PO SCH ×2 (08:56→20:23)
[2019-07-21] MEDS: ENOXAPARIN 40 MG/0.4 ML (LOVENOX) SYR SC SCH ×2 (08:57→20:22)
--- NOTE | 2019-07-21 10:00 | NUR ---
BEHAVIORAL HEALTH HERE TO SEE PATIENT.
--- NOTE | 2019-07-21 10:21 | PM&R Progress Note ---
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 Bruno in [facility] was sent home the next day began having problems with confusion and altered mental status who then presented to [facility] ER he was placed in observation ultimately sent to [place] for neurology workup which included MRI and spinal tap which all were unrevealing of source and then he was sent home and very rapidly began having more confusion sent [place] ER workup was negative so patient was sent to the senior behavioral unit [facility] last Saturday on 07/07/19 since all the workup was negative including ABG revealing pH is 7.56 CO2 26 and O2 of 92 who I assessed the following morning finding him into respiratory insufficiency when he was still sleeping with severe snoring and apnea ABG revealed pH is 7.2/58/52 confirming my suspicion this was acute on chronic CO2 narcosis due to untreated sleep apnea. He refuses to use a see Pap sheet he has at home and all of this was confirmed with Gabby Henning. Patient was transferred to via [facility] ICU placed on aggressive BiPAP regimen by pulmonology Dr. Briscoe and he improved and was able to go back to the senior behavioral unit on Saturday to work on hallucinations and delusions. He remained stable while in [facility] Haldol was initiated and delirium cleared and he was accepted to inpatient rehabilitation yesterday to complete his treatment and recovery in order to remain independent and go home with his family. Subjective/Events-last exam Pt agreeable to wear the CPAP but every time a nurse goes into the room he has it taken off. Behavioral health evaluation at 10 o'clock. PT reports that when he ambulates his oxygen goes down to 90%. I met his younger brother today who seems to be very organized and will serve as a good resource to help disposition. Eating and drinking well. Bowels are moving. Check UA and labs tomorrow morning Checked meds and labs Conferred with RN Reviewed therapy notes Review of Systems General: Fatigue Neurological: Confusion Objective Exam Vital Signs Vital Signs Date Time Temp Pulse Resp B/P (MAP) Pulse Ox O2 Delivery O2 Flow Rate FiO2 07/21/19 17:57 36.8 94 20 142/97 (112) 94 Room Air 07/21/19 05:11 2.00 Capillary Refill : General Appearance: No Apparent Distress, WD/WN, Chronically ill, Obese HEENT: PERRL/EOMI, Normal ENT Inspection, Pharynx Normal, Moist Mucous Membranes Neck: Full Range of Motion, Normal Inspection, Non Tender, Supple Respiratory: Chest Non Tender, Lungs Clear, Normal Breath Sounds, No Accessory Muscle Use, No Respiratory Distress Cardiovascular: Regular Rate, Rhythm, No Edema, No Gallop, No JVD, No Murmur Gastrointestinal: Normal Bowel Sounds, No Organomegaly, No Pulsatile Mass, Non Tender, Soft Back: Normal Inspection, No CVA Tenderness, No Vertebral Tenderness Extremity: Normal Capillary Refill, Normal Inspection, Normal Range of Motion, Non Tender, No Calf Tenderness, No Pedal Edema Neurologic/Psychiatric: Alert, Oriented x3, No Motor/Sensory Deficits, Normal Mood/Affect, loss prevention coordinator II-XII Norm as Tested, Disoriented (subtle), Motor Weakness (generalized all extremities) Skin: Normal Color, Warm/Dry Lymphatic: No Adenopathy Results/Procedures Lab Patient resulted labs reviewed. FIM Transfers Therapy Code Descriptions/Definitions Functional [place] Measure: 0=Not Assessed/NA 4=Minimal Assistance 1=Total Assistance 5=Supervision or Setup 2=Maximal Assistance 6=Modified [place] 3=Moderate Assistance 7=Complete [place] Therapy Quality Codes: 6 Independent with activity with or without an assistive device 5 Patient requires set up or clean up by helper. Patient completes activity by themselves 4 Supervision or touching assist (CGA). [place] provide cues , steadying assist 3 The helper provides less than half the effort to complete the activity 2 The helper provides more than half the effort to complete the activity 1 Dependent. The helper does all the effort to complete an activity 7 Patient refused to complete or attempt activity 9 The patient did not perform the activity before the current illness or injury 88 Not attempted due to Medical conditions or safety concerns Transfers (B, C, W/C) (FIM): 6 Scootin Rollin Roll Left to Right (QC): 6 Supine to/from Sit: 6 Sit to/from Stand: 6 Sit to Lying (QC): 6 Sit to Stand (QC): 6 Chair/Zrf-rl-Wukza Xfer(QC): 6 Bed to/from Chair: 6 Car Transfer (QC): 4 Gait Training Does the Patient Walk?: Yes Gait (FIM): 5 Distance (FIM): 3=150 ft Distance: 200', 150'x2 Walk 10 feet (QC): 4 Walk 50 ft with 2 Turns(QC): 4 Walk 150 ft (QC): 4 Walking 10ft/uneven surface-QC: 4 Gait Level of Assist: 5 Gait Persons Needed: 1 Gait Assistive Device: FWW Wheelchair Training Does the Pt Use a Wheelchair?: No Stair Training Stair Training: Handrails/: 2 handrails Stairs (FIM): 5 #of Steps: 12 1 Step (curb) (QC): 4 4 Steps (QC): 4 12 Steps (QC): 4 Stairs: Pattern: Step to Level of Assist: 5 Mental Status/Objective Comprehension: 7 Expression: 7 Social Interaction: 7 Problem Solvin Memory: 7 ADL-Treatment Feedin Eating (QC): 5 Groomin Oral Hygiene (QC): 4 Bathin Shower/Bathe Self (QC): 3 Upper Extremity Dressin Upper Body Dressing (QC): 5 Lower Extremity Dressin (SBA with slipper socks.) Lower Body Dressing (QC): 4 On/Off Footwear (QC): 4 Toiletin Toileting Hygiene (QC): 4 Toilet/Commode Transfer: 4 (CGA) Toilet Transfer (QC): 4 (CGA) Shower: 5 Assessment/Plan Assessment and Plan Assess & Plan/Chief Complaint Assessment: CO2 narcosis acute on chronic resulting in hallucinations and delusions now resolved after antipsychotic regimen now off meds and doing much better the placed back on Risperdal due to bizarre behavior consulting psych Severe untreated sleep apnea with noncompliance with CPAP Hypertension Hyperlipidemia Arthritis Plan: Dr. Briscoe consultation is appreciated Vent mask option at DC Check labs prn Monitor closely Psych treatment initiated Check UA and labs in morning (1) CO2 narcosis Status: Acute (2) Hypokalemia (3) Anemia Status: Acute Qualifiers: Anemia type: unspecified type Qualified Codes: D64.9 - Anemia, unspecified (4) Confusion Status: Acute (5) Delusions Status: Acute (6) Hyperlipidemia Status: Chronic Qualifiers: Hyperlipidemia type: mixed hyperlipidemia Qualified Codes: E78.2 - Mixed hyperlipidemia (7) Leukopenia Status: Acute Qualifiers: Leukopenia type: unspecified Qualified Codes: D72.819 - Decreased white blood cell count, unspecified (8) Hypertension Status: Chronic Qualifiers: Hypertension type: essential hypertension Qualified Codes: I10 - Essential (primary) hypertension (9) DAYANA (obstructive sleep apnea) Status: Chronic (10) Obesity hypoventilation syndrome Status: Chronic (11) Obesity (BMI 30-39.9) Status: Chronic (12) History of ileus Status: Resolved Resolution Date/Time: 07/11/19 @ 10:44 (13) History of right hip replacement Status: Chronic RAMOS CIFUENTES DO Jul 21, 2019 10:20
--- NOTE | 2019-07-21 11:22 | Progress Note ---
SHIRA MAE MED STUDENT 07/21/19 1122: Progress Note Barriers to return home/discharge: * Working with OT, requires some assistance for socks, requests assistance for going to bathroom, working on cleaning himself. Needs cues to remain on task. * Working with PT, improving endurance and and LE strength. Needs cues to remain on task. * Saw behavioral health, has no more hallucinations but remains confused. Reported history is not consistent at times, but seems oriented to self and place, and vaguely oriented to time. May have family history of mental illness, history was not clear. He gets distracted during conversations, usually requires yes/no or very specific questions to get answers to question. 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 I reviewed and verified all information documented by the medical student and made modifications to such information, when appropriate. I personally performed the physical exam and medical decision making. Leesa Cifuentes, Jul 21, 2019,19:52 SHIRA MAE MED STUDENT Jul 21, 2019 11:22 LEESA CIFUENTES DO Jul 21, 2019 19:52
--- NOTE | 2019-07-21 11:30 | NUR ---
Met with Desiree Tejada from [facility] after her initial visit with patient. Recommendation is referral to [facility] for ongoing monitoring and adjustment of medication. 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 Dr. Mendez notified by RN and requested a referral be made to [facility]. Talked with Rach at [facility]. Rach requested documentation be faxed and that she would begin the inquiry with the patient's insurance for authorization. Requested documentation faxed to Rach at [phone].
--- NOTE | 2019-07-21 13:18 | NUR ---
RD Follow-Up: Pt is eating well and has no nutritional concerns at this time. Will continue to follow until discharge. Duane Evans MS, RD [phone]
--- NOTE | 2019-07-21 14:00 | NUR ---
MEDICATION ADJUSTMENTS NOTED AFTER RECOMMENDATION FROM BEHAVIORAL HEALTH.
--- NOTE | 2019-07-21 14:24 | Occupational Ther Daily Note ---
OT Current Status-Daily Note Subjective No pain reported. Appearance Pt. up in chair. Agrees to shower. Mental Status/Objective Patient Orientation: Person Therapy Code Descriptions/Definitions Functional [place] Measure: 0=Not Assessed/NA 4=Minimal Assistance 1=Total Assistance 5=Supervision or Setup 2=Maximal Assistance 6=Modified [place] 3=Moderate Assistance 7=Complete [place] ADL-Treatment Therapy Code Descriptions/Definitions Functional [place] Measure: 0=Not Assessed/NA 4=Minimal Assistance 1=Total Assistance 5=Supervision or Setup 2=Maximal Assistance 6=Modified [place] 3=Moderate Assistance 7=Complete [place] Therapy Quality Codes: 6 Independent with activity with or without an assistive device 5 Patient requires set up or clean up by helper. Patient completes activity by themselves 4 Supervision or touching assist (CGA). [place] provide cues , steadying assist 3 The helper provides less than half the effort to complete the activity 2 The helper provides more than half the effort to complete the activity 1 Dependent. The helper does all the effort to complete an activity 7 Patient refused to complete or attempt activity 9 The patient did not perform the activity before the current illness or injury 88 Not attempted due to Medical conditions or safety concerns Grooming (FIM): 5 (SBA to shave face, brush teeth, and comb hair seated at sink.) Oral Hygiene (QC): 4 Bathing (FIM): 5 (SBA in shower to wash all parts. ) Shower/Bathe Self (QC): 4 Upper Body (FIM): 5 Upper Body Dressing (QC): 4 Lower Body Dressing (FIM): 4 Lower Body Dressing (QC): 4 On/Off Footwear (QC): 4 Transfers (B, C, W/C) (FIM): 5 Shower Transfer(FIM): 5 Other Treatment Pt. requires SBA and increased time to complete ADL tasks. Pt. requires cues and encouragement to attempt tasks for self. For example, pt. stood in shower and wanted OT to wash him. Pt. encouraged to attempt for self, which he did, so that he could increase his independence overall. After ADLs, pt. ambulated to dining area. Pt. verbalizes that he has a favorite dish that his spouse cooks. Pt. given pen and paper, and was asked to write down any items he could think of that went into that dish. Pt. was very distracted. Would write down one thing, but then perseverate on something that that item would remind him of. Unable to fully complete this task. Ambulated back to room. Education OT Patient Education: Correct positioning, Modified ADL techniques, Progress toward Goal/Update tx plan, Purpose of tx/functional activities, Reviewed precautions, Rehab process, Transfer techniques Teaching Recipient: Patient Teaching Methods: Demonstration, Discussion Response to Teaching: Verbalize Understanding, Return Demonstration OT Short Term Goals Short Term Goals Time Frame: Jul 22, 2019 Upper Body Dressing(FIM): 5 Lower Body Dressing(FIM): 5 Toileting(FIM): 5 Toilet/Commode Transfer(FIM): 5 Additional Short Term Goals: 1-Demonstrate ADL Tasks, 2-Verbalize Understanding , 3-ImproveStrength/Shayy 1=Demonstrate adherence to instructed precautions during ADL tasks. 2=Patient will verbalize/demonstrate understanding of assistive devices/modifications for ADL. 3=Patient will improve strength/tolerance for activity to enable patient to perform ADL's. OT Pricing Manager Goals Pricing Manager Goals Time Frame: Aug 05, 2019 Eating (FIM): 6 Eating (QC): 6 Groomin Oral Hygiene (QC): 6 Bathing(FIM): 5 Shower/Bathe Self (QC): 5 Upper Body Dressing(FIM): 6 Upper Body Dressing (QC): 6 Lower Body Dressing(FIM): 6 Lower Body Dressing (QC): 6 On/Off Footwear (QC): 6 Toileting(FIM): 6 Toileting Hygiene (QC): 6 Toilet/Commode Transfer(FIM): 6 Toilet/Commode Transfer (QC): 6 Shower Transfer(FIM): 5 Additional Goals: 1-Demonstrate ADL Tasks, 2-Verbalize Understanding, 3- ImproveStrength/Shayy 1=Demonstrate adherence to instructed precautions during ADL tasks. 2=Patient will verbalize/demonstrate understanding of assistive devices/modifications for ADL. 3=Patient will improve strength/tolerance for activity to enable patient to perform ADL's. OT Education/Plan Problem List/Assessment Assessment: Decreased Activ Tolerance, Impaired Cognition, Impaired I ADL's, Impaired Self-Care Skills Discharge Recommendations Plan/Recommendations: Continue POC Therapy Discharge Recommendati: 24 Hour Supervision Treatment Plan/Plan of Care Treatment,Training & Education: Yes Patient would benefit from OT for education, treatment and training to promote independence in ADL's, mobility, safety and/or upper extremity function for ADL's. Plan of Care: ADL Retraining, Functional Mobility, Group Exercise/Act as Ind, UE Funct Exercise/Act Treatment Duration: Aug 05, 2019 Frequency: At least 5 of 7 days/Wk (IRF) Estimated Hrs Per Day: 1.5 hours per day Agreement: Yes Rehab Potential: Fair Time/GCodes Start Time: 09:00 Stop Time: 10:15 Total Time Billed (hr/min): 75 Billed Treatment Time 1, ADL x 60minutes, FA x 15minutes GAIL VELA OT Jul 21, 2019 14:23
--- NOTE | 2019-07-21 14:31 | Occupational Ther Daily Note ---
OT Current Status-Daily Note Subjective No pain reported. Appearance Pt. in therapy gym. Agrees to work with OT. Mental Status/Objective Patient Orientation: Person Therapy Code Descriptions/Definitions Functional [place] Measure: 0=Not Assessed/NA 4=Minimal Assistance 1=Total Assistance 5=Supervision or Setup 2=Maximal Assistance 6=Modified [place] 3=Moderate Assistance 7=Complete [place] ADL-Treatment Therapy Code Descriptions/Definitions Functional [place] Measure: 0=Not Assessed/NA 4=Minimal Assistance 1=Total Assistance 5=Supervision or Setup 2=Maximal Assistance 6=Modified [place] 3=Moderate Assistance 7=Complete [place] Therapy Quality Codes: 6 Independent with activity with or without an assistive device 5 Patient requires set up or clean up by helper. Patient completes activity by themselves 4 Supervision or touching assist (CGA). [place] provide cues , steadying assist 3 The helper provides less than half the effort to complete the activity 2 The helper provides more than half the effort to complete the activity 1 Dependent. The helper does all the effort to complete an activity 7 Patient refused to complete or attempt activity 9 The patient did not perform the activity before the current illness or injury 88 Not attempted due to Medical conditions or safety concerns Transfers (B, C, W/C) (FIM): 5 Pt. in therapy gym. Tolerated 10 minutes on arm bike to increase overall streng th and independence with daily tasks. Pt. was asked what he had for lunch. Pt. had difficulty verbalizing this, and instead would talk about what he had for lunch, and would become distracted about other things as well. Pt. required cues to stay on task. Pt's brother present and voices some concerns privately with OT about pt's current cognitive status. States that he will be bringing pt's spouse to visit tomorrow, and would like to talk with social work job titles when he is here. lumber yard worker notified. Pt. ambulated back to room after activities in gym. All needs met in room. Education OT Patient Education: Correct positioning, Exercise program, Progress toward Goal/Update tx plan, Purpose of tx/functional activities, Reviewed precautions, Rehab process, Transfer techniques Teaching Recipient: Patient Teaching Methods: Demonstration, Discussion Response to Teaching: Verbalize Understanding, Return Demonstration OT Short Term Goals Short Term Goals Time Frame: Jul 22, 2019 Upper Body Dressing(FIM): 5 Lower Body Dressing(FIM): 5 Toileting(FIM): 5 Toilet/Commode Transfer(FIM): 5 Additional Short Term Goals: 1-Demonstrate ADL Tasks, 2-Verbalize Understanding, 3-ImproveStrength/Shayy 1=Demonstrate adherence to instructed precautions during ADL tasks. 2=Patient will verbalize/demonstrate understanding of assistive devices/modifications for ADL. 3=Patient will improve strength/tolerance for activity to enable patient to perform ADL's. OT Fdc Goals Fdc Goals Time Frame: Aug 05, 2019 Eating (FIM): 6 Eating (QC): 6 Groomin Oral Hygiene (QC): 6 Bathing(FIM): 5 Shower/Bathe Self (QC): 5 Upper Body Dressing(FIM): 6 Upper Body Dressing (QC): 6 Lower Body Dressing(FIM): 6 Lower Body Dressing (QC): 6 On/Off Footwear (QC): 6 Toileting(FIM): 6 Toileting Hygiene (QC): 6 Toilet/Commode Transfer(FIM): 6 Toilet/Commode Transfer (QC): 6 Shower Transfer(FIM): 5 Additional Goals: 1-Demonstrate ADL Tasks, 2-Verbalize Understanding, 3- ImproveStrength/Shayy 1=Demonstrate adherence to instructed precautions during ADL tasks. 2=Patient will verbalize/demonstrate understanding of assistive devices/modifications for ADL. 3=Patient will improve strength/tolerance for activity to enable patient to perform ADL's. OT Education/Plan Problem List/Assessment Assessment: Decreased Activ Tolerance, Impaired Cognition, Impaired I ADL's, Impaired Self-Care Skills Discharge Recommendations Plan/Recommendations: Continue POC Therapy Discharge Recommendati: 24 Hour Supervision Treatment Plan/Plan of Care Treatment,Training & Education: Yes Patient would benefit from OT for education, treatment and training to promote independence in ADL's, mobility, safety and/or upper extremity function for ADL's. Plan of Care: ADL Retraining, Functional Mobility, Group Exercise/Act as Ind, UE Funct Exercise/Act Treatment Duration: Aug 05, 2019 Frequency: At least 5 of 7 days/Wk (IRF) Estimated Hrs Per Day: 1.5 hours per day Agreement: Yes Rehab Potential: Fair Time/GCodes Start Time: 13:30 Stop Time: 13:50 Total Time Billed (hr/min): 20 Billed Treatment Time 1, Ex GAIL VELA OT Jul 21, 2019 14:31
--- NOTE | 2019-07-21 14:31 | Physical Therapy Daily Note ---
PT Daily Note-Current Subjective Patient in recliner pre tx, agrees to PT with encouragement, has no complaints of pain. Appearance Patient in therapy gym post tx with OT. Mental Status Patient Orientation: Person, Confused Transfers Therapy Code Descriptions/Definitions Functional [place] Measure: 0=Not Assessed/NA 4=Minimal Assistance 1=Total Assistance 5=Supervision or Setup 2=Maximal Assistance 6=Modified [place] 3=Moderate Assistance 7=Complete [place] Therapy Quality Codes: 6 Independent with activity with or without an assistive device 5 Patient requires set up or clean up by helper. Patient completes activity by themselves 4 Supervision or touching assist (CGA). [place] provide cues , steadying assist 3 The helper provides less than half the effort to complete the activity 2 The helper provides more than half the effort to complete the activity 1 Dependent. The helper does all the effort to complete an activity 7 Patient refused to complete or attempt activity 9 The patient did not perform the activity before the current illness or injury 88 Not attempted due to Medical conditions or safety concerns Sit to Stand (QC): 4 Chair/Glm-zp-Gbapd Xfer(QC): 4 SBA for sit to stand and transfers. Gait Training Distance: 200', 150' Walk 10 feet (QC): 4 Walk 50 ft with 2 Turns(QC): 4 Walk 150 ft (QC): 4 Gait Level of Assist: 5 Gait Persons Needed: 1 Gait Assistive Device: FWW slow but steady ambulation Exercises Standing: Hamstring curls, Heel/toe raises, 3 way Ex=Flex, Abd, Ext (not extension), Marching, Mini squats Standing Reps: 15 LAQ alternating for 5 min Treatments ambulation, LE exercise Assessment Current Status: Poor Progress Patient very distracted, needs constant cues to stay on task, very confused, rambling PT Short Term Goals Short Term Goals Time Frame: Jul 22, 2019 Gait (FIM): 5 (met) Gait Distance Comment: 200' Gait Level of Assist: 5 Gait Assistive Device: FWW PT Patient Ombudsperson Goals Long-Term Goals PT Patient Ombudsperson Goals Time Frame: Aug 05, 2019 Transfers (B,C,W/C) (FIM): 6 Sit to Lying (QC): 6 Lying-Sitting on Side/Bed(QC): 6 Sit to Stand (QC): 6 Rollin Roll Left to Right (QC): 6 Chair/Zhd-tq-Gikwk Xfer(QC): 6 Car Transfer (QC): 6 Gait (FIM): 6 Distance: 300' Walk 10 feet (QC): 6 Walk 10ft-Uneven Surface(QC): 6 Walk 50ft with 2 Turns (QC): 6 Walk 150 ft (QC): 6 Gait Level of Assist: 6 Gait Assistive Device: FWW Stairs (FIM): 2 # of Steps: 4 1 Step (curb) (QC): 4 4 Steps (QC): 4 Stairs Level Of Assist: 5 PT Plan Problem List Problem List: Activity Tolerance, Functional Strength, Safety, Balance, Gait, Transfer Treatment/Plan Treatment Plan: Continue Plan of Care Treatment Plan: Bed Mobility, Education, Functional Activity Shayy, Functional Strength, Group Therapy, Gait, Safety, Therapeutic Exercise, Transfers Treatment Duration: Aug 05, 2019 Frequency: At least 5 of 7 days/Wk (IRF) Estimated Hrs Per Day: 1.5 hours per day Patient and/or Family Agrees t: Yes Safety Risks/Education Patient Education: Gait Training, Transfer Techniques, Correct Positioning, Safety Issues Teaching Recipient: Patient Teaching Methods: Demonstration, Discussion Response to Teaching: Reinforcement Needed Time/GCodes Time In: 1300 Time Out: 1330 Total Billed Treatment Time: 30 Total Billed Treatment 1 visit EX 15' GT 15' ROBERTA TELLES PT Jul 21, 2019 14:31
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
--- NOTE | 2019-07-21 16:00 | NUR ---
HAS BEEN TELLING ONE STORY AFTER ANOTHER JUMPING FREQUENTLY FROM SUBJECT TO SUBJECT. CURRENTLY, STATES HE THINKS HE IS A MILLIONAIRE FROM [employer] [facility] [employer] ([employer]). NO COMPLAINTS OF PAIN.
[2019-07-21] MEDS: NIACIN 500 MG TABLET PO SCH (16:43)
[2019-07-21 17:57] VITALS: BP 142/97
[2019-07-21] MEDS: AMITRIPTYLINE 25 MG (ELAVIL) TAB PO SCH (20:23)
[2019-07-22 05:09] LABS: BASOPHILS % (AUTO) 1 % (0-10); EOSINOPHILS # (AUTO) 0.1 10^3/uL (0.0-0.3); EOSINOPHILS % (AUTO) 3 % (0-10); HEMATOCRIT 40 % (40-54); HEMOGLOBIN 12.7 G/DL (13.3-17.7); LYMPHOCYTES # (AUTO) 1.1 X 10^3 (1.0-4.0); LYMPHOCYTES % (AUTO) 29 % (12-44); MEAN CORPUSCULAR HEMOGLOBIN 30 PG (25-34); MEAN CORPUSCULAR HGB CONC 32 G/DL (32-36); MEAN CORPUSCULAR VOLUME 93 FL (80-99); MEAN PLATELET VOLUME 10.3 FL (7.4-10.4); MONOCYTES # (AUTO) 0.5 X 10^3 (0.0-1.0); MONOCYTES % (AUTO) 13 % (0-12); NEUTROPHILS % (AUTO) 55 % (42-75); PLATELET COUNT 269 10^3/uL (130-400); RED CELL DISTRIBUTION WIDTH 13.6 % (10.0-14.5); WHITE BLOOD COUNT 3.7 10^3/uL (4.3-11.0)
[2019-07-22 05:30] LABS: ALANINE AMINOTRANSFERASE 31 U/L (0-55); ALBUMIN 3.5 GM/DL (3.2-4.5); ALKALINE PHOSPHATASE 58 U/L (40-136); BILIRUBIN,TOTAL 0.2 MG/DL (0.1-1.0); BUN/CREATININE RATIO 16; CALCIUM 9.1 MG/DL (8.5-10.1); CARBON DIOXIDE 27 MMOL/L (21-32); CHLORIDE 101 MMOL/L (98-107); CREATININE SERUM 0.79 MG/DL (0.60-1.30); GFR ESTIMATED > 60; GLUCOSE 97 MG/DL (70-105); POTASSIUM 3.8 MMOL/L (3.6-5.0); SODIUM 138 MMOL/L (135-145); TOTAL PROTEIN 6.8 GM/DL (6.4-8.2)
[2019-07-22] MEDS: TRIAMTERENE/HCTZ 75-50 (MAXZIDE,DYAZIDE) TABLET PO SCH (06:15)
[2019-07-22] MEDS: MULTIVIT W/MINERALS TAB (THERAGRAN M) PO SCH (06:15)
[2019-07-22] MEDS: KCL 20 MEQ TAB (K-DUR) PO SCH ×2 (06:15→17:34)
[2019-07-22] MEDS: ASCORBIC ACID (VIT C) 500 MG TABLET PO SCH (06:15)
[2019-07-22 06:33] VITALS: BP 143/83
[2019-07-22 06:47] LABS: BILIRUBIN,URINE NEGATIVE (NEGATIVE); GLUCOSE, URINE (UA) NEGATIVE (NEGATIVE); KETONES,URINE 2+ (NEGATIVE); LEUKOCYTE ESTERASE ,URINE NEGATIVE (NEGATIVE); NITRITE,URINE NEGATIVE (NEGATIVE); PH,URINE 6 (5-9); PROTEIN,URINE 1+ (NEGATIVE); UROBILINOGEN,URINE NORMAL (NORMAL)
[2019-07-22 06:54] LABS: BACTERIA,URINE FEW /HPF; CLARITY,URINE CLEAR; COLOR,URINE YELLOW; RBC,URINE RARE /HPF; SQUAMOUS EPITHELIAL CELL,UR 0-2 /HPF; WBC,URINE RARE /HPF
--- NOTE | 2019-07-22 08:33 | PM&R Progress Note ---
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 Bruno in [facility] was sent home the next day began having problems with confusion and altered mental status who then presented to [facility] ER he was placed in observation ultimately sent to [place] for neurology workup which included MRI and spinal tap which all were unrevealing of source and then he was sent home and very rapidly began having more confusion sent [place] ER workup was negative so patient was sent to the senior behavioral unit [facility] last Saturday on 07/07/19 since all the workup was negative including ABG revealing pH is 7.56 CO2 26 and O2 of 92 who I assessed the following morning finding him into respiratory insufficiency when he was still sleeping with severe snoring and apnea ABG revealed pH is 7.2/58/52 confirming my suspicion this was acute on chronic CO2 narcosis due to untreated sleep apnea. He refuses to use a see Pap sheet he has at home and all of this was confirmed with Gabby Henning. Patient was transferred to via [facility] ICU placed on aggressive BiPAP regimen by pulmonology Dr. Briscoe and he improved and was able to go back to the senior behavioral unit on Saturday to work on hallucinations and delusions. He remained stable while in [facility] Haldol was initiated and delirium cleared and he was accepted to inpatient rehabilitation yesterday to complete his treatment and recovery in order to remain independent and go home with his family. Subjective/Events-last exam Pt still with delusion state but it appears that the Risperdal may be helping when I increased to 0.5 TID and increased the Elavil to 50 and discontinued the Effexor under psych recommendations [place] [email or web address] [facility] has not approved him to go to a psych facility May need a assisted Will talk in the team meeting about disposition Checked meds and labs Conferred with RN Reviewed therapy notes Review of Systems Neurological: Confusion Objective Exam Vital Signs Vital Signs Date Time Temp Pulse Resp B/P (MAP) Pulse Ox O2 Delivery O2 Flow Rate FiO2 07/22/19 17:12 37.2 93 18 124/79 (94) 95 Room Air 07/21/19 20:10 2.00 Capillary Refill : General Appearance: No Apparent Distress, WD/WN, Chronically ill, Obese HEENT: PERRL/EOMI, Normal ENT Inspection, Pharynx Normal, Moist Mucous Membranes Neck: Full Range of Motion, Normal Inspection, Non Tender, Supple Respiratory: Chest Non Tender, Lungs Clear, Normal Breath Sounds, No Accessory Muscle Use, No Respiratory Distress Cardiovascular: Regular Rate, Rhythm, No Edema, No Gallop, No JVD, No Murmur Gastrointestinal: Normal Bowel Sounds, No Organomegaly, No Pulsatile Mass, Non Tender, Soft Back: Normal Inspection, No CVA Tenderness, No Vertebral Tenderness Extremity: Normal Capillary Refill, Normal Inspection, Normal Range of Motion, Non Tender, No Calf Tenderness, No Pedal Edema Neurologic/Psychiatric: Alert, Oriented x3, No Motor/Sensory Deficits, Normal Mood/Affect, 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 FIM Transfers Therapy Code Descriptions/Definitions Functional [place] Measure: 0=Not Assessed/NA 4=Minimal Assistance 1=Total Assistance 5=Supervision or Setup 2=Maximal Assistance 6=Modified [place] 3=Moderate Assistance 7=Complete [place] Therapy Quality Codes: 6 Independent with activity with or without an assistive device 5 Patient requires set up or clean up by helper. Patient completes activity by themselves 4 Supervision or touching assist (CGA). [place] provide cues , steadying assist 3 The helper provides less than half the effort to complete the activity 2 The helper provides more than half the effort to complete the activity 1 Dependent. The helper does all the effort to complete an activity 7 Patient refused to complete or attempt activity 9 The patient did not perform the activity before the current illness or injury 88 Not attempted due to Medical conditions or safety concerns Transfers (B, C, W/C) (FIM): 5 Scootin Rollin Roll Left to Right (QC): 6 Supine to/from Sit: 6 Sit to/from Stand: 6 Sit to Lying (QC): 6 Sit to Stand (QC): 4 Chair/Gac-sp-Maltt Xfer(QC): 4 Bed to/from Chair: 6 Car Transfer (QC): 4 Gait Training Does the Patient Walk?: Yes Gait (FIM): 5 Distance (FIM): 3=150 ft Distance: 200', 150' Walk 10 feet (QC): 4 Walk 50 ft with 2 Turns(QC): 4 Walk 150 ft (QC): 4 Walking 10ft/uneven surface-QC: 4 Gait Level of Assist: 5 Gait Persons Needed: 1 Gait Assistive Device: FWW Wheelchair Training Does the Pt Use a Wheelchair?: No Stair Training Stair Training: Handrails/: 2 handrails Stairs (FIM): 5 #of Steps: 12 1 Step (curb) (QC): 4 4 Steps (QC): 4 12 Steps (QC): 4 Stairs: Pattern: Step to Level of Assist: 5 Mental Status/Objective Comprehension: 7 Expression: 7 Social Interaction: 7 Problem Solvin Memory: 7 ADL-Treatment Feedin Eating (QC): 5 Groomin (SBA to shave face, brush teeth, and comb hair seated at sink.) Oral Hygiene (QC): 4 Bathin (SBA in shower to wash all parts. ) Shower/Bathe Self (QC): 4 Upper Extremity Dressin Upper Body Dressing (QC): 4 Lower Extremity Dressin Lower Body Dressing (QC): 4 On/Off Footwear (QC): 4 Toiletin Toileting Hygiene (QC): 4 Toilet/Commode Transfer: 4 (CGA) Toilet Transfer (QC): 4 (CGA) Shower: 5 Assessment/Plan Assessment and Plan Assess & Plan/Chief Complaint Assessment: CO2 narcosis acute on chronic resulting in hallucinations and delusions now resolved after antipsychotic regimen now off meds and doing much better the placed back on Risperdal due to bizarre behavior consulting psych Severe untreated sleep apnea with noncompliance with CPAP Hypertension Hyperlipidemia Arthritis Plan: Dr. Briscoe consultation is appreciated Vent mask option at DC Check labs prn Monitor closely Psych treatment initiated UA normal After team meeting I conferred with [facility] who has psych services available along with medical management and Dr Harvey accepted the case and transportation will bring patient to [place] tomorrow morning (1) CO2 narcosis Status: Acute (2) Hypokalemia (3) Anemia Status: Acute Qualifiers: Anemia type: unspecified type Qualified Codes: D64.9 - Anemia, unspecified (4) Confusion Status: Acute (5) Delusions Status: Acute (6) Hyperlipidemia Status: Chronic Qualifiers: Hyperlipidemia type: mixed hyperlipidemia Qualified Codes: E78.2 - Mixed hyperlipidemia (7) Leukopenia Status: Acute Qualifiers: Leukopenia type: unspecified Qualified Codes: D72.819 - Decreased white blood cell count, unspecified (8) Hypertension Status: Chronic Qualifiers: Hypertension type: essential hypertension Qualified Codes: I10 - Essential (primary) hypertension (9) DAYANA (obstructive sleep apnea) Status: Chronic (10) Obesity hypoventilation syndrome Status: Chronic (11) Obesity (BMI 30-39.9) Status: Chronic (12) History of ileus Status: Resolved Resolution Date/Time: 07/11/19 @ 10:44 (13) History of right hip replacement Status: Chronic RAMOS CIFUENTES DO Jul 22, 2019 08:33
--- NOTE | 2019-07-22 08:44 | Progress Note ---
SHIRA MAE MED STUDENT 07/22/19 0844: Subjective Date Seen by a Provider: Jul 22, 2019 Time Seen by a Provider: 09:45 Subjective/Events-last exam Since last seen, [facility] recommended transfer to [facility] due to functional capacity to care for himself, and tentative diagnosis of delusional disorder caused by medical issues, although which medical issue is unknown. Recommended rule out UTI, determine which medication is most helpful for him before transfer. Also, yesterday during PT Mr. Cha's brother visited, expressed concern over his mental state, and requested that he bring patient's and a protective services social worker to visit with him. 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 I spoke to [facility] today, who reiterated this, and expressed that she believed while he was physically capable of caring for himself, he was not cognitively capable, requiring guidance as well as cues to stay on task. I spoke to his nurse, who reported that his confusion has worsened since he came here. When I spoke with him today, he seemed more frustrated and upset then yesterday. He expressed awareness that he was confused about things, that people did not understand him, and that he needed to do things 'right' here to go home. He seemed reluctant to talk to me at first because he "hasn't been making any sense", and told me before I left "I hope I made some sense". During the conversation, he continued to have the same issues with going off on tangents and talking about things that the healthcare team as a whole seem unsure if they are true, and also spoke about right knee pain he has been having, which he reported he hadn't spoken about for. He didn't talk about it yesterday while I was there. One thing of note he told me was that, from my understanding of what he said, he had been tested for a tick bite in [place], but did not go in for followup to learn the results of the panel. The reason I mention this is b ecause his younger brother visited yesterday and also mentioned a tick bite. So perhaps at some point the results of this panel could be sought, particularly if they seem relevant to his condition. Objective Exam Last Set of Vital Signs Vital Signs Date Time Temp Pulse Resp B/P (MAP) Pulse Ox O2 Delivery O2 Flow Rate FiO2 10/2/19 06:33 36.7 91 18 143/83 (103) 90 Room Air 07/21/19 20:10 2.00 Capillary Refill : I&O Intake and Output 07/22/19 00:00 Intake Total 1100 ml Balance 1100 ml Intake Oral 1100 ml # Voids 8 Results Lab Laboratory Tests 07/22/19 04:42: White Blood Count 3.7L, Red Blood Count 4.24L, Hemoglobin 12.7L, Hematocrit 40, Mean Corpuscular Volume 93, Mean Corpuscular Hemoglobin 30, Mean Corpuscular Hemoglobin Concent 32, Red Cell Distribution Width 13.6, Platelet Count 269, Mean Platelet Volume 10.3, Neutrophils (%) (Auto) 55, Lymphocytes (%) (Auto) 29, Monocytes (%) (Auto) 13H, Eosinophils (%) (Auto) 3, Basophils (%) (Auto) 1, Neutrophils # (Auto) 2.0, Lymphocytes # (Auto) 1.1, Monocytes # (Auto) 0.5, Eosinophils # (Auto) 0.1, Basophils # (Auto) 0.0, Sodium Level 138, Potassium Level 3.8, Chloride Level 101, Carbon Dioxide Level 27, Anion Gap 10, Blood Urea Nitrogen 13, Creatinine 0.79, Estimat Glomerular Filtration Rate > 60, BUN/Creatinine Ratio 16, Glucose Level 97, Calcium Level 9.1, Corrected Calcium 9.5, Total Bilirubin 0.2, Aspartate Amino Transf (AST/SGOT) 26, Alanine Aminotransferase (ALT/SGPT) 31, Alkaline Phosphatase 58, Total Protein 6.8, Albumin 3.5 07/22/19 06:10: Urine Color YELLOW, Urine Clarity CLEAR, Urine pH 6, Urine Specific [place] 1.025H, Urine Protein 1+H, Urine Glucose (UA) NEGATIVE, Urine Ketones 2+H, Urine Nitrite NEGATIVE, Urine Bilirubin NEGATIVE, Urine Urobilinogen NORMAL, Urine Leukocyte Esterase NEGATIVE, Urine RBC (Auto) NEGATIVE, Urine RBC RARE, Urine WBC RARE, Urine Squamous Epithelial Cells 0-2, Urine Crystals NONE, Urine Bacteria FEWH, Urine Casts NONE, Urine Mucus NEGATIVE, Urine Culture Indicated NO Clinical Quality Measures DVT/VTE Risk/Contraindication: Risk Factor Score Per Nursin RFS Level Per Nursing on Admit: 4+=Very High LEESA CIFUENTES DO 07/22/192020: Assessment/Plan Assessment/Plan Assess & Plan/Chief Complaint Delirium Supervisory-Addendum Brief Verification & Attestation Participated in pt care: history, MDM, physical Personally performed: exam, history, MDM, supervision of care Care discussed with: Medical Student Procedures: n/a Results interpretation: Verified all documentation Verification and Attestation of Medical Student E/M Service A medical student performed and documented this service in my presence. I reviewed and verified all information documented by the medical student and made modifications to such information, when appropriate. I personally performed the physical exam and medical decision making. Leesa Cifuentes, Jul 22, 2019,20:21 SHIRA MAE MED STUDENT Jul 22, 2019 08:44 LEESA CIFUENTES DO Jul 22, 2019 20:21
[2019-07-22] MEDS: risperiDONE 0.25 MG (RisperDAL) TAB PO SCH ×3 (09:25→20:17)
[2019-07-22] MEDS: MAGNESIUM OXIDE (MAG-OX)400 MG TAB PO SCH (09:25)
[2019-07-22] MEDS: ASPIRIN 325 MG (5 GR) TABLET PO SCH (09:25)
[2019-07-22] MEDS: meTOprolol TARTRATE 25 MG (LOPRESSOR) TABLET PO SCH ×2 (09:25→20:17)
[2019-07-22] MEDS: SENNA W/DOCUSATE (SENOKOT S) TABLET PO SCH ×2 (09:26→20:16)
[2019-07-22] MEDS: amLODIPine 5 MG (NORVASC) TAB PO SCH (09:26)
[2019-07-22] MEDS: LACTULOSE SYRUP 10GM/15ML (ENULOSE) 30ML UDC PO SCH ×2 (09:26→21:29)
[2019-07-22] MEDS: lisINopril 40 MG (PRINIVIL) TABLET PO SCH (09:26)
[2019-07-22] MEDS: POLYETHYLENE GLYCOL 17 GM (MIRALAX) PACK PO SCH ×2 (09:26→21:29)
[2019-07-22] MEDS: ENOXAPARIN 40 MG/0.4 ML (LOVENOX) SYR SC SCH ×2 (09:26→20:16)
[2019-07-22] MEDS: FLUTICASONE NASAL SPRAY (FLONASE) 16 GM BTL NS SCH (09:27)
--- NOTE | 2019-07-22 09:29 | Occupational Ther Daily Note ---
OT Current Status-Daily Note Subjective No pain reported. Appearance Pt. up in chair. Agrees to shower. Mental Status/Objective Patient Orientation: Person Therapy Code Descriptions/Definitions Functional [place] Measure: 0=Not Assessed/NA 4=Minimal Assistance 1=Total Assistance 5=Supervision or Setup 2=Maximal Assistance 6=Modified [place] 3=Moderate Assistance 7=Complete [place] ADL-Treatment Therapy Code Descriptions/Definitions Functional [place] Measure: 0=Not Assessed/NA 4=Minimal Assistance 1=Total Assistance 5=Supervision or Setup 2=Maximal Assistance 6=Modified [place] 3=Moderate Assistance 7=Complete [place] Therapy Quality Codes: 6 Independent with activity with or without an assistive device 5 Patient requires set up or clean up by helper. Patient completes activity by themselves 4 Supervision or touching assist (CGA). [place] provide cues , steadying assist 3 The helper provides less than half the effort to complete the activity 2 The helper provides more than half the effort to complete the activity 1 Dependent. The helper does all the effort to complete an activity 7 Patient refused to complete or attempt activity 9 The patient did not perform the activity before the current illness or injury 88 Not attempted due to Medical conditions or safety concerns Eating (FIM): 6 Eating (QC): 6 Grooming (FIM): 5 (Set up to brush teeth and comb hair.) Oral Hygiene (QC): 5 Bathing (FIM): 5 Shower/Bathe Self (QC): 4 Upper Body (FIM): 5 Upper Body Dressing (QC): 4 Lower Body Dressing (FIM): 4 (Pt. uses sock aide for right sock. Able to don other clothing items with min assist for right shoe.) Lower Body Dressing (QC): 4 On/Off Footwear (QC): 4 Transfers (B, C, W/C) (FIM): 5 Shower Transfer(FIM): 5 Other Treatment Pt. showered and dressed this date. Pt. requires cues to sequence and continue the next thing. Pt. somewhat confused with how rehab works, but at times, is aware that he is confused about this. Pt. perseverates on his brother coming and bringing important papers. Pt. is unable to state what these papers are, but that they are important. Pt. easily distracted and has to be re-directed during treatment to finish what he is doing. Becomes tearful about his mother during treatment and states that she recently. Unable to state when. Sat at sink to complete grooming tasks after treatment. Ambulated back to chair. All needs met and chair alarm in place. Education OT Patient Education: Correct positioning, Modified ADL techniques, Progress toward Goal/Update tx plan, Purpose of tx/functional activities, Reviewed precautions, Rehab process, Transfer techniques, Use of adapted equipment Teaching Recipient: Patient Teaching Methods: Demonstration Response to Teaching: Verbalize Understanding, Return Demonstration OT Short Term Goals Short Term Goals Time Frame: Jul 22, 2019 Upper Body Dressing(FIM): 5 Lower Body Dressing(FIM): 5 Toileting(FIM): 5 Toilet/Commode Transfer(FIM): 5 Additional Short Term Goals: 1-Demonstrate ADL Tasks, 2-Verbalize Understanding, 3-ImproveStrength/Shayy 1=Demonstrate adherence to instructed precautions during ADL tasks. 2=Patient will verbalize/demonstrate understanding of assistive devices/modifications for ADL. 3=Patient will improve strength/tolerance for activity to enable patient to perf orm ADL's. OT Alf Goals Alf Goals Time Frame: Aug 05, 2019 Eating (FIM): 6 Eating (QC): 6 Groomin Oral Hygiene (QC): 6 Bathing(FIM): 5 Shower/Bathe Self (QC): 5 Upper Body Dressing(FIM): 6 Upper Body Dressing (QC): 6 Lower Body Dressing(FIM): 6 Lower Body Dressing (QC): 6 On/Off Footwear (QC): 6 Toileting(FIM): 6 Toileting Hygiene (QC): 6 Toilet/Commode Transfer(FIM): 6 Toilet/Commode Transfer (QC): 6 Shower Transfer(FIM): 5 Additional Goals: 1-Demonstrate ADL Tasks, 2-Verbalize Understanding, 3- ImproveStrength/Shayy 1=Demonstrate adherence to instructed precautions during ADL tasks. 2=Patient will verbalize/demonstrate understanding of assistive devices/modifications for ADL. 3=Patient will improve strength/tolerance for activity to enable patient to perform ADL's. OT Education/Plan Problem List/Assessment Assessment: Decreased Activ Tolerance, Decreased Safety Aware, Impaired Cognition, Impaired I ADL's, Impaired Self-Care Skills Discharge Recommendations Plan/Recommendations: Continue POC Therapy Discharge Recommendati: Post Acute OT Comment Pt. has ADL equipment for dressing at home from previous hip surgery. Treatment Plan/Plan of Care Treatment,Training & Education: Yes Patient would benefit from OT for education, treatment and training to promote independence in ADL's, mobility, safety and/or upper extremity function for ADL's. Plan of Care: ADL Retraining, Functional Mobility, Group Exercise/Act as Ind, UE Funct Exercise/Act Treatment Duration: Aug 05, 2019 Frequency: At least 5 of 7 days/Wk (IRF) Estimated Hrs Per Day: 1.5 hours per day Agreement: Yes Rehab Potential: Fair Time/GCodes Start Time: 08:15 Stop Time: 09:15 Total Time Billed (hr/min): 60 Billed Treatment Time 1, ADL x 4 GAIL VELA OT Jul 22, 2019 09:29
--- NOTE | 2019-07-22 12:08 | Physical Therapy Daily Note ---
PT Daily Note-Current Subjective Pt. monotone and unstable subject mainteneance, difficult to follow in conversation or to get or share info and know pt. is following, emotional at times and difficult near not complying. perseverates on wanting his knee "looked at and taken car of immediately by Dr Polk" Mental Status Patient Orientation: Person speaks in low monotone voice, emotional at times, confused fragmented subject matter, resistive of rx at times and needs explanation of goals that can be achieved with progress Transfers Therapy Quality Codes: 6 Independent with activity with or without an assistive device 5 Patient requires set up or clean up by helper. Patient completes activity by themselves 4 Supervision or touching assist (CGA). [place] provide cues , steadying assist 3 The helper provides less than half the effort to complete the activity 2 The helper provides more than half the effort to complete the activity 1 Dependent. The helper does all the effort to complete an activity 7 Patient refused to complete or attempt activity 9 The patient did not perform the activity before the current illness or injury 88 Not attempted due to Medical conditions or safety concerns Transfers (B, C, W/C): 6 Roll Left to Right (QC): 6 Sit to Lying (QC): 6 Sit to Stand (QC): 6 Chair/Xby-cg-Tpybs Xfer(QC): 6 pt. TRFs well but needs directed as to when to get up, where to go etc. Gait Training Does the Patient Walk?: Yes Gait: 5 Walk 10 feet (QC): 5 Walk 50 ft with 2 Turns(QC): 5 Walk 150 ft (QC): 5 Gait Persons Needed: 1 Gait Assistive Device: FWW low, no layne LOB, needs guided and directed as to where to go and why etc. Stair Training Stair Training: Handrails/: 2 handrails #of Steps: 4 1 Step (curb) (QC): 5 4 Steps (QC): 4 Stairs: Pattern: Step to Level of Assist: 4 instructed in every step for sequnce and hand placement Exercises Supine Ex: Bridging, Ankle pumps, Quad Set, Rolling, Glut sets, Heel Slides, Short Arc Quads, Scooting, Straight leg raise, Hip abd/add Supine Reps: 15 Seated Therapy Exercises: Ankle pumps, Sit to stand, Long arc quads, Hip abd/add Seated Reps: 15 NuStep Minutes: 10 NuStep Workload: 5 Treatments toileted standing for urination with CGA. handwashing CGA Assessment Current Status: Good Progress confusion/ mental instability? impede pts. memory and problem solving PT Short Term Goals Short Term Goals Time Frame: Jul 22, 2019 Gait Distance Comment: 200' Gait Assistive Device: FWW PT Radioactive Waste Disposal Dispatcher Goals Radioactive Waste Disposal Dispatcher Goals PT Radioactive Waste Disposal Dispatcher Goals Time Frame: Aug 05, 2019 Sit to Lying (QC): 6 Lying-Sitting on Side/Bed(QC): 6 Sit to Stand (QC): 6 Roll Left to Right (QC): 6 Chair/Xma-vr-Mnnnd Xfer(QC): 6 Car Transfer (QC): 6 Distance: 300' Walk 10 feet (QC): 6 Walk 10ft-Uneven Surface(QC): 6 Walk 50ft with 2 Turns (QC): 6 Walk 150 ft (QC): 6 Gait Level of Assist: 6 Gait Assistive Device: FWW # of Steps: 4 1 Step (curb) (QC): 4 4 Steps (QC): 4 Stairs Level Of Assist: 5 PT Plan Treatment/Plan Treatment Plan: Continue Plan of Care Treatment Plan: Bed Mobility, Education, Functional Activity Shayy, Functional Strength, Group Therapy, Gait, Safety, Therapeutic Exercise, Transfers Treatment Duration: Aug 05, 2019 Frequency: At least 5 of 7 days/Wk (IRF) Estimated Hrs Per Day: 1.5 hours per day Patient and/or Family Agrees t: Yes Safety Risks/Education Patient Education: Gait Training, Transfer Techniques, Steps, Correct Positioni ng, Disease Process, Safety Issues Teaching Recipient: Patient Teaching Methods: Demonstration, Discussion Response to Teaching: Verbalize Understanding, Return Demonstration, Reinforcement Needed Time/GCodes Time In: 915 (1300) Time Out: 1015 (1330) Total Billed Treatment Time: 90 Total Billed Treatment 1,FA45m,EX30m,GT15m JIMMY SAWYER BRIDAL GOWN FITTER Jul 22, 2019 12:08
--- NOTE | 2019-07-22 13:09 | Occupational Ther Daily Note ---
OT Current Status-Daily Note Subjective No pain reported. Appearance Pt. agrees to treatment. Mental Status/Objective Patient Orientation: Person Therapy Code Descriptions/Definitions Functional [place] Measure: 0=Not Assessed/NA 4=Minimal Assistance 1=Total Assistance 5=Supervision or Setup 2=Maximal Assistance 6=Modified [place] 3=Moderate Assistance 7=Complete [place] ADL-Treatment Therapy Code Descriptions/Definitions Functional [place] Measure: 0=Not Assessed/NA 4=Minimal Assistance 1=Total Assistance 5=Supervision or Setup 2=Maximal Assistance 6=Modified [place] 3=Moderate Assistance 7=Complete [place] Therapy Quality Codes: 6 Independent with activity with or without an assistive device 5 Patient requires set up or clean up by helper. Patient completes activity by themselves 4 Supervision or touching assist (CGA). [place] provide cues , steadying assist 3 The helper provides less than half the effort to complete the activity 2 The helper provides more than half the effort to complete the activity 1 Dependent. The helper does all the effort to complete an activity 7 Patient refused to complete or attempt activity 9 The patient did not perform the activity before the current illness or injury 88 Not attempted due to Medical conditions or safety concerns Other Treatment Pt. agrees to treatment. Ambulated with OT to therapy gym. Pt. requires cues to stay on task. Pt. worked on cognitive task with OT. Pt. verbalizes that he uses a phone book when trying to find a phone number. Pt. given phone book, and was asked to find numbers for specific tasks. For example, if he wanted to find a place that he could get [place] food, where would he look. Pt. had great difficulty with this community task. Pt. was confused on where to look in the phone book for specific places that he might need in the community. Ambulated back to room. All needs met. Education OT Patient Education: Correct positioning, Progress toward Goal/Update tx plan, Purpose of tx/functional activities, Reviewed precautions, Rehab process, Transfer techniques Teaching Recipient: Patient Teaching Methods: Demonstration, Discussion Response to Teaching: Verbalize Understanding, Return Demonstration OT Short Term Goals Short Term Goals Time Frame: Jul 22, 2019 Upper Body Dressing(FIM): 5 Lower Body Dressing(FIM): 5 Toileting(FIM): 5 Toilet/Commode Transfer(FIM): 5 Additional Short Term Goals: 1-Demonstrate ADL Tasks, 2-Verbalize Understanding, 3-ImproveStrength/Shayy 1=Demonstrate adherence to instructed precautions during ADL tasks. 2=Patient will verbalize/demonstrate understanding of assistive devices/modifications for ADL. 3=Patient will improve strength/tolerance for activity to enable patient to perform ADL's. OT Analytics Lead Goals Analytics Lead Goals Time Frame: Aug 05, 2019 Eating (QC): 6 Oral Hygiene (QC): 6 Shower/Bathe Self (QC): 5 Upper Body Dressing (QC): 6 Lower Body Dressing (QC): 6 On/Off Footwear (QC): 6 Toileting Hygiene (QC): 6 Toilet/Commode Transfer (QC): 6 Additional Goals: 1-Demonstrate ADL Tasks, 2-Verbalize Understanding, 3- ImproveStrength/Shayy 1=Demonstrate adherence to instructed precautions during ADL tasks. 2=Patient will verbalize/demonstrate understanding of assistive devices/modifications for ADL. 3=Patient will improve strength/tolerance for activity to enable patient to perform ADL's. OT Education/Plan Problem List/Assessment Assessment: Decreased Activ Tolerance, Decreased Safety Aware, Impaired Cognition, Impaired I ADL's, Impaired Self-Care Skills Discharge Recommendations Plan/Recommendations: Continue POC Therapy Discharge Recommendati: 24 Hour Supervision Treatment Plan/Plan of Care Treatment,Training & Education: Yes Patient would benefit from OT for education, treatment and training to promote independence in ADL's, mobility, safety and/or upper extremity function for ADL's. Plan of Care: ADL Retraining, Cognitive Retraining, Functional Mobility, Group Exercise/Act as Ind, UE Funct Exercise/Act Treatment Duration: Aug 05, 2019 Frequency: At least 5 of 7 days/Wk (IRF) Estimated Hrs Per Day: 1.5 hours per day Agreement: Yes Rehab Potential: Fair Time/GCodes Start Time: 10:15 Stop Time: 10:45 Total Time Billed (hr/min): 30 Billed Treatment Time 1, FA x 2 GAIL VELA OT Jul 22, 2019 13:09
--- NOTE | 2019-07-22 13:57 | NUR ---
Weekly team conference Met with patient, his (Janeen Cha), patient's brother/DPOA (Denis Cha), patient's [id number] (Mell Cha), and patient's daughter via telephone (Maria G Mcatrhur). As patient continues to exhibit altered mental status with confusion, impaired memory and impaired problem solving, recommendation is referral to [facility] for psychiatric evaluation. The patient's family verbalized many questions including disability benefits if patient is unable to return to work, COBRA coverage if insurance lapses, DPOA for finances, as well as his current medical condition. The patient's daughter stated she had paperwork drawn up with a welding supervisor in [place], [facility], regarding DPOA for finances; however, the welding supervisor does not travel to [place] to review/obtain consent and signature for DPOA paperwork. Discussed with patient and family the recommendation for psychiatric evaluation to establish the cause of patient's current altered mental status as he may not be able to provide consent/signature at this time. Patient's family agreed that his current medical/mental status should be evaluated and treated. Discussed this with patient; however, he remained confused and was unable to verbalize understanding. Patient's family agreed for referral to be sent to [facility] for evaluation.
--- NOTE | 2019-07-22 14:30 | NUR ---
Referral made via telephone to [place] [facility]. Their physician is to contact Dr. Mendez for history and medical information. Dr. Mendez notified that she would be contacted.
--- NOTE | 2019-07-22 15:02 | NUR ---
Notified by Dr. Mendez that patient has been accepted for admission to [facility]. 1635-Notified patient's brother/DPOA, Denis Cha, that patient was accepted for admission to [facility]. 1641-Notified patient's daughter, Maria G Mcarthur, that patient was accepted for admission to [facility].
--- NOTE | 2019-07-22 16:00 | Pulmonary Progress Note ---
Standard Progress Note Progress Notes Date Seen by Provider: Jul 22, 2019 Time Seen by Provider: 15:30 PT is sitting up in chair and is not wearing oxygen; he states he is wearing his cpap at night (but unable to confirm), Assessment & Plan Morbid obesity with OHS - recent hospitalization with acute on chronic respiratory failure -Continue noninvasive ventilation at night -Home vent to mask will be set up at discharge. Will use hospital vent to mask for now QHS. -Lungs CTA Anemia -Monitor (Admission note, pulmonary note, image, labs, were reviewed in order to provide continued care) ZAYRA PFEIFFER APRN Jul 22, 2019 16:00
[2019-07-22 17:12] VITALS: BP 124/79
[2019-07-22] MEDS: NIACIN 500 MG TABLET PO SCH (17:34)
--- NOTE | 2019-07-22 18:27 | NUR ---
After numerous phone calls to area EMS agencies and to contracted transportation services, unable to secure transportation to [facility] for this evening. [facility] is able to provide transportation for patient to [facility] tomorrow, 07/23/19 at 0900. RN called [facility] to request bed be held for patient and that transportation has been arranged for 07/23/19 at 0900. [facility] contacted their physician and has agreed to hold patient's bed for admission tomorrow. Plan is for discharge 07/23/19 at 0900 via [facility] to [place] [facility]. Dr. Mendez notified and agrees to discharge plan.
[2019-07-22] MEDS: AMITRIPTYLINE 25 MG (ELAVIL) TAB PO SCH (20:17)
[2019-07-22] MEDS ORDERED: AMIT25TA9 PO (20:28)
[2019-07-22] MEDS ORDERED: FLUT16SP22 NS (20:28)
[2019-07-22] MEDS ORDERED: ENOX40DI8 SC (20:28)
[2019-07-22] MEDS ORDERED: SENN-20 PO (20:28)
[2019-07-22] MEDS ORDERED: RISP0.253 PO (20:28)
[2019-07-23 05:07] VITALS: BP 116/76
[2019-07-23] MEDS: TRIAMTERENE/HCTZ 75-50 (MAXZIDE,DYAZIDE) TABLET PO SCH (06:19)
[2019-07-23] MEDS: KCL 20 MEQ TAB (K-DUR) PO SCH (06:19)
[2019-07-23] MEDS: MULTIVIT W/MINERALS TAB (THERAGRAN M) PO SCH (06:19)
[2019-07-23] MEDS: ASCORBIC ACID (VIT C) 500 MG TABLET PO SCH (06:19)
[2019-07-23] MEDS: ASPIRIN 325 MG (5 GR) TABLET PO SCH (08:04)
[2019-07-23] MEDS: amLODIPine 5 MG (NORVASC) TAB PO SCH (08:04)
[2019-07-23] MEDS: lisINopril 40 MG (PRINIVIL) TABLET PO SCH (08:05)
[2019-07-23] MEDS: risperiDONE 0.25 MG (RisperDAL) TAB PO SCH (08:05)
[2019-07-23] MEDS: MAGNESIUM OXIDE (MAG-OX)400 MG TAB PO SCH (08:05)
[2019-07-23] MEDS: ENOXAPARIN 40 MG/0.4 ML (LOVENOX) SYR SC SCH (08:06)
[2019-07-23] MEDS: SENNA W/DOCUSATE (SENOKOT S) TABLET PO SCH (08:06)
[2019-07-23] MEDS: LACTULOSE SYRUP 10GM/15ML (ENULOSE) 30ML UDC PO SCH (08:06)
[2019-07-23] MEDS: POLYETHYLENE GLYCOL 17 GM (MIRALAX) PACK PO SCH (08:06)
[2019-07-23] MEDS: meTOprolol TARTRATE 25 MG (LOPRESSOR) TABLET PO SCH (08:09)
[2019-07-23] MEDS: FLUTICASONE NASAL SPRAY (FLONASE) 16 GM BTL NS SCH (08:10)
--- NOTE | 2019-07-23 08:25 | NUR ---
Notified Denis Cha, brother/DPOA, of planned discharge via EMS at 0900 today. Bill verbalized understanding. Denis provided consent via telephone for EMS transport to [facility] to this worker and to Tyson Chin RN. 0832-notified patient's daughter, Maria G Mcarthur, that patient would be transported to [place] today at 0900 via EMS. Maria G verbalized understanding.
--- NOTE | 2019-07-23 08:30 | Therapy Team Discharge Summary ---
Therapy Discharge Summary Discharge Recommendations Date of Discharge Therapy D/C Recommendations: Other, See Comments (recommend continued skilled PT. ) Physical Therapy This patient was transferred to ARU post acute stay that also included a Behavioral Health stay. He was admitted to ARU for CO2 narcosis. Prior to the course of events that began several weeks, ago, pt was indep with all mobility, working and helping to care for his . Upon admission to this unit, he was min assist with transfers, gait and 1 step. Treatment has focused on functional strength and mobility to allow him to return home to care for himself at an indep to mod indep level. His course of care on this unit has allowed him to make functional progress in terms of mobility, but continues to have unresolved behavior issues. He is being transferred to an outside facility this date for further care. He is currently mod indep with transfers, SBA with gait (primarily due to decreased safety awareness) and able to ascend/descend stairs with CGA. Pt has made progress and feel that with continued medical managment, his functional progress will continue. DC this date due to transfer out of unit. Occupational Therapy Decreased Activ Tolerance, Decreased Safety Aware, Impaired Cognition, Impaired I ADL's, Impaired Self-Care Skills PT Halfway Goals Halfway Goals PT Halfway Goals Time Frame: Aug 05, 2019 Transfers (B,C,W/C) (FIM): 6 (met) Roll Left to Right (QC): 6 Sit to Lying (QC): 6 Lying-Sitting on Side/Bed(QC): 6 Sit to Stand (QC): 6 Chair/Vbe-rn-Pbqlu Xfer(QC): 6 Car Transfer (QC): 6 Gait (FIM): 6 (scored a 5) Distance: 300' Walk 10 feet (QC): 6 Walk 10ft-Uneven Surface(QC): 6 Walk 50ft with 2 Turns (QC): 6 Walk 150 ft (QC): 6 Gait Level of Assist: 6 Gait Assistive Device: FWW Stairs (FIM): 2 (exceeded) # of Steps: 4 1 Step (curb) (QC): 4 4 Steps (QC): 4 Stairs Level Of Assist: 5 Nearly meeting goals, transfer to outside facility for continued medical care. OT Laboratory Sample Carrier Goals Laboratory Sample Carrier Goals Time Frame: Aug 05, 2019 Eating (FIM): 6 Eating (QC): 6 Oral Hygiene (QC): 6 Grooming(FIM): 6 Bathing(FIM): 5 Shower/Bathe Self (QC): 5 Upper Body Dressing(FIM): 6 Upper Body Dressing (QC): 6 Lower Body Dressing(FIM): 6 Lower Body Dressing (QC): 6 On/Off Footwear (QC): 6 Toileting(FIM): 6 Toileting Hygiene (QC): 6 Toilet/Commode Transfer(FIM): 6 Toilet/Commode Transfer (QC): 6 Shower Transfer(FIM): 5 Additional Goals: 1-Demonstrate ADL Tasks, 2-Verbalize Understanding, 3- ImproveStrength/Shayy 1=Demonstrate adherence to instructed precautions during ADL tasks. 2=Patient will verbalize/demonstrate understanding of assistive devices/modifications for ADL. 3=Patient will improve strength/tolerance for activity to enable patient to perform ADL's. SKYE FELIX PT Jul 23, 2019 08:30
--- NOTE | 2019-07-23 08:49 | Discharge Summary ---
Diagnosis/Chief Complaint Date of Admission Jul 14, 2019 at 17:00 Date of Discharge Discharge Date: Jul 23, 2019 Discharge Diagnosis Assessment: CO2 narcosis acute on chronic resulting in hallucinations and delusions now resolved after antipsychotic regimen now off meds and doing much better the placed back on Risperdal due to bizarre behavior consulting psych Severe untreated sleep apnea with noncompliance with CPAP Hypertension Hyperlipidemia Arthritis Plan: Dr. Briscoe consultation is appreciated Vent mask option at [place] Check labs prn Monitor closely Psych treatment initiated UA normal After team meeting I conferred with [facility] who has psych services available along with medical management and Dr Harvey accepted the case and transportation will bring patient to [facility] tomorrow morning (1) CO2 narcosis Status: Acute (2) Hypokalemia (3) Anemia Status: Acute Qualifiers: Anemia type: unspecified type Qualified Codes: D64.9 - Anemia, unspecified (4) Confusion Status: Acute (5) Delusions Status: Acute (6) Hyperlipidemia Status: Chronic Qualifiers: Hyperlipidemia type: mixed hyperlipidemia Qualified Codes: E78.2 - Mixed hyperlipidemia (7) Leukopenia Status: Acute Qualifiers: Leukopenia type: unspecified Qualified Codes: D72.819 - Decreased white blood cell count, unspecified (8) Hypertension Status: Chronic Qualifiers: Hypertension type: essential hypertension Qualified Codes: I10 - Essential (primary) hypertension (9) DAYANA (obstructive sleep apnea) Status: Chronic (10) Obesity hypoventilation syndrome Status: Chronic (11) Obesity (BMI 30-39.9) Status: Chronic (12) History of ileus Status: Resolved Resolution Date/Time: 07/11/19 @ 10:44 (13) History of right hip replacement Status: Chronic Discharge Summary Discharge Physical Examination Allergies: Coded Allergies: azithromycin (Verified Allergy, Unknown, 07/08/19) Vitals & I&Os Vital Signs Date Time Temp Pulse Resp B/P (MAP) Pulse Ox O2 Delivery O2 Flow Rate FiO2 07/23/19 09:00 Room Air 07/23/19 09:00 37.6 98 20 159/99 98 07/21/19 20:10 2.00 General Appearance: Alert, Oriented X3, Cooperative Respiratory: Clear to Auscultation Cardiovascular: Regular Rate Neuro: Normal Gait, Normal Speech, Strength at 5/5 X4 Ext Psych/Mental Status: Mood NL Hospital Course Was the Problem List Reviewed?: Yes Hospital course: Pt had a lengthy hospital course in inpatient rehab for 10 days, where he was admitted after insurance approved inpatient rehab after transfer from [facility] due to significant weakness and in need of close monitoring due to CO2 narcosis acute on chronic. Dr. Briscoe saw him, placed him on CPAP at night and Oxygen during the day and he was able to improve on that but the significant altered mental status and delirium that continues actually progressed and worsened even though I initiated anti-psychotics per psych from direction of the [facility] behavior unit since [facility] did not approve of re-admission there, so [facility] was updated, they approved him to be transferred to [facility] and have psychiatry services there that I didn't have. Repeat ABG at discharge showed no evidence of CO2 narcosis and labs remain stable at time of discharge as was his vital signs and he was transferred in stable conditions to [facility] due to psychiatric services unavailable her in [place] at [facility]. Labs (last 24 hrs) Laboratory Tests 07/15/19 04:35: White Blood Count 4.1L, Red Blood Count 4.01L, Hemoglobin 12.2L, Hematocrit 38L, Mean Corpuscular Volume 94, Mean Corpuscular Hemoglobin 30, Mean Corpuscular Hemoglobin Concent 32, Red Cell Distribution Width 13.2, Platelet Count 273, Mean Platelet Volume 11.1H, Neutrophils (%) (Auto) 52, Lymphocytes (%) (Auto) 28, Monocytes (%) (Auto) 15H, Eosinophils (%) (Auto) 4, Basophils (%) (Auto) 1, Neutrophils # (Auto) 2.1, Lymphocytes # (Auto) 1.2, Monocytes # (Auto) 0.6, Eosinophils # (Auto) 0.2, Basophils # (Auto) 0.0, Sodium Level 140, Potassium Level 3.5L, Chloride Level 102, Carbon Dioxide Level 28, Anion Gap 10, Blood Ur ea Nitrogen 12, Creatinine 0.75, Estimat Glomerular Filtration Rate > 60, BUN/Creatinine Ratio 16, Glucose Level 81, Calcium Level 9.0, Corrected Calcium 9.4, Total Bilirubin 0.3, Aspartate Amino Transf (AST/SGOT) 21, Alanine Aminotransferase (ALT/SGPT) 21, Alkaline Phosphatase 59, Total Protein 6.5, Albumin 3.5 07/20/19 04:22: Sodium Level 137, Potassium Level 3.7, Chloride Level 98, Carbon Dioxide Level 29, Anion Gap 10, Blood Urea Nitrogen 12, Creatinine 0.78, Estimat Glomerular Filtration Rate > 60, BUN/Creatinine Ratio 15, Glucose Level 93, Calcium Level 9.0, Corrected Calcium 9.3, Total Bilirubin 0.3, Aspartate Amino Transf (AST/SGOT) 26, Alanine Aminotransferase (ALT/SGPT) 29, Alkaline Phosphatase 57, Total Protein 7.3, Albumin 3.6 07/20/19 04:27: White Blood Count 3.3L, Red Blood Count 4.18L, Hemoglobin 12.4L, Hematocrit 39L, Mean Corpuscular Volume 94, Mean Corpuscular Hemoglobin 30, Mean Corpuscular Hemoglobin Concent 32, Red Cell Distribution Width 13.5, Platelet Count 264, Mean Platelet Volume 10.6H, Neutrophils (%) (Auto) 52, Lymphocytes (%) (Auto) 32, Monocytes (%) (Auto) 12, Eosinophils (%) (Auto) 4, Basophils (%) (Auto) 1, Neutrophils # (Auto) 1.7L, Lymphocytes # (Auto) 1.1, Monocytes # (Auto) 0.4, Eosinophils # (Auto) 0.1, Basophils # (Auto) 0.0 07/22/19 04:42: White Blood Count 3.7L, Red Blood Count 4.24L, Hemoglobin 12.7L, Hematocrit 40, Mean Corpuscular Volume 93, Mean Corpuscular Hemoglobin 30, Mean Corpuscular Hemoglobin Concent 32, Red Cell Distribution Width 13.6, Platelet Count 269, Mean Platelet Volume 10.3, Neutrophils (%) (Auto) 55, Lymphocytes (%) (Auto) 29, Monocytes (%) (Auto) 13H, Eosinophils (%) (Auto) 3, Basophils (%) (Auto) 1, Neutrophils # (Auto) 2.0, Lymphocytes # (Auto) 1.1, Monocytes # (Auto) 0.5, Eosinophils # (Auto) 0.1, Basophils # (Auto) 0.0, Sodium Level 138, Potassium Level 3.8, Chloride Level 101, Carbon Dioxide Level 27, Anion Gap 10, Blood Urea Nitrogen 13, Creatinine 0.79, Estimat Glomerular Filtration Rate > 60, BUN/Creatinine Ratio 16, Glucose Level 97, Calcium Level 9.1, Corrected Calcium 9.5, Total Bilirubin 0.2, Aspartate Amino Transf (AST/SGOT) 26, Alanine Aminotransferase (ALT/SGPT) 31, Alkaline Phosphatase 58, Total Protein 6.8, Albumin 3.5 07/22/19 06:10: Urine Color YELLOW, Urine Clarity CLEAR, Urine pH 6, Urine Specific [place] 1.025H, Urine Protein 1+H, Urine Glucose (UA) NEGATIVE, Urine Ketones 2+H, Urine Nitrite NEGATIVE, Urine Bilirubin NEGATIVE, Urine Urobilinogen NORMAL, Urine Leukocyte Esterase NEGATIVE, Urine RBC (Auto) NEGATIVE, Urine RBC RARE, Urine WBC RARE, Urine Squamous Epithelial Cells 0-2, Urine Crystals NONE, Urine Bacteria FEWH, Urine Casts NONE, Urine Mucus NEGATIVE, Urine Culture Indicated NO 07/23/19 08:40: Blood Gas Puncture Site UNK, Blood Gas Patient Temperature 37.2, Arterial Blood pH 7.53H, Arterial Blood Partial Pressure CO2 28L, Arterial Blood Partial Pressure O2 83, Arterial Blood HCO3 23, Arterial Blood Total CO2 24.2, Arterial Blood Oxygen Saturation 98, Arterial Blood Base Excess 0.9, Martin Test POSITIVE, Blood Gas Ventilator Setting NO, Blood Gas Inspired Oxygen 21% Pending Labs Laboratory Tests 07/15/19 04:35: White Blood Count 4.1, Red Blood Count 4.01, Hemoglobin 12.2, Hematocrit 38, Mean Corpuscular Volume 94, Mean Corpuscular Hemoglobin 30, Mean Corpuscular Hemoglobin Concent 32, Red Cell Distribution Width 13.2, Platelet Count 273, Mean Platelet Volume 11.1, Neutrophils (%) (Auto) 52, Lymphocytes (%) (Auto) 28, Monocytes (%) (Auto) 15, Eosinophils (%) (Auto) 4, Basophils (%) (Auto) 1, Neutrophils # (Auto) 2.1, Lymphocytes # (Auto) 1.2, Monocytes # (Auto) 0.6, Eosinophils # (Auto) 0.2, Basophils # (Auto) 0.0, Sodium Level 140, Potassium Level 3.5, Chloride Level 102, Carbon Dioxide Level 28, Anion Gap 10, Blood Urea Nitrogen 12, Creatinine 0.75, Estimat Glomerular Filtration Rate > 60, BUN/Creatinine Ratio 16, Glucose Level 81, Calcium Level 9.0, Corrected Calcium 9.4, Total Bilirubin 0.3, Aspartate Amino Transf (AST/SGOT) 21, Alanine Aminotransferase (ALT/SGPT) 21, Alkaline Phosphatase 59, Total Protein 6.5, Albumin 3.5 07/20/19 04:22: Sodium Level 137, Potassium Level 3.7, Chloride Level 98, Carbon Dioxide Level 29, Anion Gap 10, Blood Urea Nitrogen 12, Creatinine 0.78, Estimat Glomerular Filtration Rate > 60, BUN/Creatinine Ratio 15, Glucose Level 93, Calcium Level 9.0, Corrected Calcium 9.3, Total Bilirubin 0.3, Aspartate Amino Transf (AST/SGOT) 26, Alanine Aminotransferase (ALT/SGPT) 29, Alkaline Phosphatase 57, Total Protein 7.3, Albumin 3.6 07/20/19 04:27: White Blood Count 3.3, Red Blood Count 4.18, Hemoglobin 12.4, Hematocrit 39, Mean Corpuscular Volume 94, Mean Corpuscular Hemoglobin 30, Mean Corpuscular Hemoglobin Concent 32, Red Cell Distribution Width 13.5, Platelet Count 264, Mean Platelet Volume 10.6, Neutrophils (%) (Auto) 52, Lymphocytes (%) (Auto) 32, Monocytes (%) (Auto) 12, Eosinophils (%) (Auto) 4, Basophils (%) (Auto) 1, Neutrophils # (Auto) 1.7, Lymphocytes # (Auto) 1.1, Monocytes # (Auto) 0.4, Eosinophils # (Auto) 0.1, Basophils # (Auto) 0.0 07/22/19 04:42: White Blood Count 3.7, Red Blood Count 4.24, Hemoglobin 12.7, Hematocrit 40, Mean Corpuscular Volume 93, Mean Corpuscular Hemoglobin 30, Mean Corpuscular Hemoglobin Concent 32, Red Cell Distribution Width 13.6, Platelet Count 269, Mean Platelet Volume 10.3, Neutrophils (%) (Auto) 55, Lymphocytes (%) (Auto) 29, Monocytes (%) (Auto) 13, Eosinophils (%) (Auto) 3, Basophils (%) (Auto) 1, Neutrophils # (Auto) 2.0, Lymphocytes # (Auto) 1.1, Monocytes # (Auto) 0.5, Eosinophils # (Auto) 0.1, Basophils # (Auto) 0.0, Sodium Level 138, Potassium Level 3.8, Chloride Level 101, Carbon Dioxide Level 27, Anion Gap 10, Blood Urea Nitrogen 13, Creatinine 0.79, Estimat Glomerular Filtration Rate > 60, BU N/Creatinine Ratio 16, Glucose Level 97, Calcium Level 9.1, Corrected Calcium 9.5, Total Bilirubin 0.2, Aspartate Amino Transf (AST/SGOT) 26, Alanine Aminotransferase (ALT/SGPT) 31, Alkaline Phosphatase 58, Total Protein 6.8, Albumin 3.5 07/22/19 06:10: Urine Color YELLOW, Urine Clarity CLEAR, Urine pH 6, Urine Specific [place] 1.025, Urine Protein 1+, Urine Glucose (UA) NEGATIVE, Urine Ketones 2+, Urine Nitrite NEGATIVE, Urine Bilirubin NEGATIVE, Urine Urobilinogen NORMAL, Urine Leukocyte Esterase NEGATIVE, Urine RBC (Auto) NEGATIVE, Urine RBC RARE, Urine WBC RARE, Urine Squamous Epithelial Cells 0-2, Urine Crystals NONE, Urine Bacteria FEW, Urine Casts NONE, Urine Mucus NEGATIVE, Urine Culture Indicated NO 07/23/19 08:40: Blood Gas Puncture Site UNK, Blood Gas Patient Temperature 37.2, Arterial Blood pH 7.53, Arterial Blood Partial Pressure CO2 28, Arterial Blood Partial Pressure O2 83, Arterial Blood HCO3 23, Arterial Blood Total CO2 24.2, Arterial Blood Oxygen Saturation 98, Arterial Blood Base Excess 0.9, Martin Test POSITIVE, Blood Gas Ventilator Setting NO, Blood Gas Inspired Oxygen 21% Discharge Home Medications: Active Scripts Active Senna-Time S Tablet (Sennosides/Docusate Sodium) 1 Each Tablet 2 Ea PO BID 14 Days Fluticasone Propionate 16 Gm [place].susp 0 [place] NS DAILY 14 Days Risperidone 0.25 Mg Tablet 0.5 Mg PO TID 14 Days Amitriptyline HCl 25 Mg Tablet 50 Mg PO HS 14 Days Enoxaparin Sodium 40 Mg/0.4 Ml Syringe 40 Mg SC Q12HR 14 Days Reported Zinc (Zinc Amino Acid Chelate) 50 Mg Tablet 50 Mg PO DAILY Vitamin B-12 (Cyanocobalamin (Vitamin B-12)) 500 Mcg Tablet 500 Mcg PO DAILY Nitroglycerin 0.4 Mg Tab.subl 0.4 Mg SL UD PRN Tylenol Extra Strength (Acetaminophen) 500 Mg Tablet 1,000 Mg PO Q4H PRN Aspirin 325 Mg Tablet 162.5 Mg PO DAILY TAKES 1/2 (325MG) TABLET Magnesium (Magnesium Oxide) 400 Mg Tablet 400 Mg PO DAILY Vitamin C (Ascorbate Calcium) 500 Mg Tablet 500 Mg PO DAILY Centrum Silver Men Tablet (Multivit-Min/FA/Lycopen/Lutein) 1 Each Tablet 1 Tab PO DAILY Niacin 500 mg Capsule (Niacin (Inositol Niacinate)) 500 Mg Capsule 1,000 Mg PO HS TAKES 2 (500MG) CAPSULES Metoprolol Tartrate 25 Mg Tablet 25 Mg PO BID Potassium Chloride 20 Meq Tab.er.prt 20 Meq PO DAILY Amlodipine Besylate 10 Mg Tablet 10 Mg PO DAILY Lisinopril 40 Mg Tablet 80 Mg PO DAILY TAKES 2 (40MG) TABLETS Lovastatin 40 Mg Tablet 80 Mg PO HS TAKES 2 (40MG) TABLETS Triamterene-Hctz 37.5-25 mg Tb (Triamterene/Hydrochlorothiazid) 1 Each Tablet 1 Tab PO DAILY Instructions to patient/family Please see electronic discharge instructions given to patient. Diagnosis/Problems Diagnosis/Problems (1) CO2 narcosis Status: Acute (2) Hypokalemia (3) Anemia Status: Acute Qualifiers: Qualified Codes: D64.9 - Anemia, unspecified (4) Confusion Status: Acute (5) Delusions Status: Acute (6) Hyperlipidemia Status: Chronic Qualifiers: Qualified Codes: E78.2 - Mixed hyperlipidemia (7) Leukopenia Status: Acute Qualifiers: Qualified Codes: D72.819 - Decreased white blood cell count, unspecified (8) Hypertension Status: Chronic Qualifiers: Qualified Codes: I10 - Essential (primary) hypertension (9) DAYANA (obstructive sleep apnea) Status: Chronic (10) Obesity hypoventilation syndrome Status: Chronic (11) Obesity (BMI 30-39.9) Status: Chronic (12) History of ileus Status: Resolved Resolution Date/Time: 07/11/19 @ 10:44 (13) History of right hip replacement Status: Chronic Clinical Quality Measures DVT/VTE Risk/Contraindication: Risk Factor Score Per Nursin RFS Level Per Nursing on Admit: 4+=Very High RAMOS CIFUENTES DO Jul 23, 2019 08:49
[2019-07-23 08:53] LABS: ABG BASE EXCESS 0.9 MMOL/L (-2.5-2.5); ABG OXYGEN SATURATION 98 % (94-100); ABG PCO2 28 MMHG (35-45); ABG PH 7.53 (7.37-7.43); ABG PO2 83 MMHG (79-93); ABG TCO2 24.2 MMOL/L (21.0-31.0)
[2019-07-23 08:54] LABS: ALLENS TEST POSITIVE; INSPIRED O2 21%; PATIENT TEMP 37.2; VENTILATOR NO
[2019-07-23 09:00] VITALS: BP 159/99
--- NOTE | 2019-07-23 09:00 | NUR ---
[facility] here for transport.
--- NOTE | 2019-07-23 09:00 | NUR ---
Dr. Mendez notified of PH 7.53 and C02 28.
--- NOTE | 2019-07-23 09:05 | NUR ---
Report to Sherrell at [facility].
--- NOTE | 2019-07-23 09:27 | Progress Note ---
SHIRA MAE MED STUDENT 07/23/19 0927: Subjective Date Seen by a Provider: Jul 23, 2019 Subjective/Events-last exam Since I last saw him, Mr. Cha has been scheduled to be discharged to [facility] for behavioral health. He had an ABG done due to deep breathing, but ABG came back normal. He has continued with PT and OT, who continue to report that while he is physically capable of caring for himself, he is not cognitively capable. He requires cues to stay on task, and he resists complying with treatment at times. Mr. Cha was discharged to [facility] before I had a chance to see him this morning. Objective Exam Last Set of Vital Signs Vital Signs Date Time Temp Pulse Resp B/P (MAP) Pulse Ox O2 Delivery O2 Flow Rate FiO2 07/23/19 05:07 37.6 90 20 116/76 (89) 96 Room Air 07/21/19 20:10 2.00 Capillary Refill : I&O Intake and Output 07/23/19 00:00 Intake Total 650 ml Balance 650 ml Intake Oral 650 ml # Voids 10 # Bowel Movements 2 Results Lab Laboratory Tests 07/23/19 08:40: Blood Gas Puncture Site UNK, Blood Gas Patient Temperature 37.2, Arterial Blood pH 7.53H, Arterial Blood Partial Pressure CO2 28L, Arterial Blood Partial Pressure O2 83, Arterial Blood HCO3 23, Arterial Blood Total CO2 24.2, Arterial Blood Oxygen Saturation 98, Arterial Blood Base Excess 0.9, Martin Test POSITIVE, Blood Gas Ventilator Setting NO, Blood Gas Inspired Oxygen 21% Assessment/Plan Assessment/Plan Assess & Plan/Chief Complaint Assessment: CO2 narcosis Confusion DAYANA noncompliant on CPAP Hypertension Hyperlipidemia Arthritis Plan: Referred to Psych in [facility] CPAP, encourage compliance Vent mask option at [place] UA normal Continue on medications for chronic conditions Clinical Quality Measures DVT/VTE Risk/Contraindication: Risk Factor Score Per Nursin RFS Level Per Nursing on Admit: 4+=Very High LEESA CIFUENTES DO 07/24/19 0814: Subjective Time Seen by a Provider: 09:00 Supervisory-Addendum Brief Verification & Attestation Participated in pt care: history, MDM, physical Personally performed: exam, history, MDM, supervision of care Care discussed with: Medical Student Procedures: n/a Results interpretation: Verified all documentation Verification and Attestation of Medical Student E/M Service A medical student performed and documented this service in my presence. I reviewed and verified all information documented by the medical student and made modifications to such information, when appropriate. I personally performed the physical exam and medical decision making. Leesa Cifuentes, Jul 24, 2019,08:14 SHIRA MAE MED STUDENT Jul 23, 2019 09:27 LEESA CIFUENTES DO Jul 24, 2019 08:14
--- NOTE | 2019-07-23 11:13 | Therapy Team Discharge Summary ---
Therapy Discharge Summary Discharge Recommendations Date of Discharge 07-23-19 Therapy D/C Recommendations: 24 hr Supervision, Other, See Comments (Continued occupational therapy) Occupational Therapy Pt. has been seen by occupational therapy to increase overall strength and independence with daily skills. Pt. is able to complete most ADL tasks with supervision/set up. However, requires cues for sequencing and attention. Pt. has difficulty initiating or completing these tasks on his own. Due to cognitive difficulty, pt. has transferred to another facility. Pt. demonstrates confusion at times, and poor problem solving, making independence at home at this time not attainable. Pt. transferred this date to acute facility that can continue to work towards independence with pt. Follow up care to be continued. Decreased Activ Tolerance, Decreased Safety Aware, Impaired Cognition, Impaired I ADL's, Impaired Self-Care Skills PT Care Navigator Goals Detention Goals PT Care Navigator Goals Time Frame: Aug 05, 2019 Transfers (B,C,W/C) (FIM): 6 (met) Roll Left to Right (QC): 6 Sit to Lying (QC): 6 Lying-Sitting on Side/Bed(QC): 6 Sit to Stand (QC): 6 Chair/[id number]-[id number] Xfer(QC): 6 Car Transfer (QC): 6 Gait (FIM): 6 (scored a 5) Distance: 300' Walk 10 feet (QC): 6 Walk 10ft-Uneven Surface(QC): 6 Walk 50ft with 2 Turns (QC): 6 Walk 150 ft (QC): 6 Gait Level of Assist: 6 Gait Assistive Device: FWW Stairs (FIM): 2 (exceeded) # of Steps: 4 1 Step (curb) (QC): 4 4 Steps (QC): 4 Stairs Level Of Assist: 5 OT Detention Goals Care Navigator Goals Time Frame: Aug 05, 2019 Eating (FIM): 6 (met) Eating (QC): 6 (met) Oral Hygiene (QC): 6 (not met) Grooming(FIM): 6 (not met) Bathing(FIM): 5 (met) Shower/Bathe Self (QC): 5 (not met) Upper Body Dressing(FIM): 6 (not met) Upper Body Dressing (QC): 6 (not met) Lower Body Dressing(FIM): 6 (not met) Lower Body Dressing (QC): 6 (not met) On/Off Footwear (QC): 6 (not met) Toileting(FIM): 6 (not met) Toileting Hygiene (QC): 6 (not met) Toilet/Commode Transfer(FIM): 6 (not met) Toilet/Commode Transfer (QC): 6 (not met) Shower Transfer(FIM): 5 (met) Additional Goals: 1-Demonstrate ADL Tasks, 2-Verbalize Understanding, 3- ImproveStrength/Shayy 1=Demonstrate adherence to instructed precautions during ADL tasks. 2=Patient will verbalize/demonstrate understanding of assistive devices/modifications for ADL. 3=Patient will improve strength/tolerance for activity to enable patient to perform ADL's. GAIL VELA OT Jul 23, 2019 11:13
== END 2019-07-23 09:00 | DRG 206 ==
PROVIDERS: ADMIT Internal Medicine; ATTEND Internal Medicine
DX: E66.2 Morbid (severe) obesity with alveolar hypoventilation (principal); Z68.41 Body mass index [BMI] 40.0-44.9, adult; R41.0 Disorientation, unspecified; F22 Delusional disorders; Z91.19 Patient's noncompliance with other medical treatment and regimen; E87.6 Hypokalemia; E78.00 Pure hypercholesterolemia, unspecified; I10 Essential (primary) hypertension; E78.5 Hyperlipidemia, unspecified; I45.6 Pre-excitation syndrome; K57.90 Diverticulosis of intestine, part unspecified, without perforation or abscess without bleeding; M19.91 Primary osteoarthritis, unspecified site; R73.03 Prediabetes; F41.9 Anxiety disorder, unspecified; D64.9 Anemia, unspecified
CPT/HCPCS: 36415; 36600; 71046; 80053; 81000; 82805; 85025; 94660; 94760